=== PATIENT | male | born 1935 | race Caucasian/White ===

== ENCOUNTER 2017-04-16 07:49 | Inpatient (IN) | payer OTHER ==
[2017-04-16] MEDS ORDERED: BENADRYL INJ 50 MG VIAL IVP ONE ×2 (09:43→13:00)
[2017-04-16] MEDS ORDERED: TYLENOL 325 MG TAB PO ONE ×2 (10:00→13:00)
[2017-04-16 10:21] VITALS: BMI 34.8
[2017-04-16 10:23] LABS: BASOPHILS % (AUTO) 0.7 % (0.2-1.0); EOSINOPHILS # (AUTO) 0.1 x10^3/uL (0.0-0.2); EOSINOPHILS % (AUTO) 3.6 % (0.9-2.9); HEMATOCRIT 21.7 % (42.0-54.0); LYMPHOCYTES # (AUTO) 1.2 X10^3/uL (1.3-2.9); LYMPHOCYTES % (AUTO) 29.7 % (21.0-51.0); MEAN CORPUSCULAR HEMOGLOBIN 18.8 pg (27.0-34.0); MEAN CORPUSCULAR HGB CONC 30.2 g/dL (33.0-35.0); MEAN CORPUSCULAR VOLUME 62.1 fL (80.0-100.0); MEAN PLATELET VOLUME 8.6 fL (7.4-11.0); MONOCYTES # (AUTO) 0.6 x10^3/uL (0.3-0.8); MONOCYTES % (AUTO) 14.3 % (0.0-13.0); NEUTROPHILS # (AUTO) 2.1 x10^3/uL (2.2-4.8); NEUTROPHILS % (AUTO) 51.7 % (42.0-75.0); PLATELET COUNT 182 X10^3/uL (150.0-450.0); RED CELL DISTRIBUTION WIDTH 17.8 % (11.6-16.5); WHITE BLOOD COUNT 4.1 X10^3/uL (3.6-10.0)
[2017-04-16 10:28] LABS: HEMOGLOBIN 6.6 g/dL (13.5-18.0)
[2017-04-16 10:36] LABS: CALCIUM 8.4 mg/dL (8.5-10.1); CARBON DIOXIDE 27.6 mmol/L (21-32); COR CA(FOR HYPOALB) 9.2 mg/dL (8.5-10.1); CREATININE 1.7 mg/dL (0.70-1.30); TOTAL PROTEIN 7.3 g/dL (6.4-8.2)
[2017-04-16 10:47] LABS: PLATELET MORPHOLOGY COMMENT NORMAL (NORMAL)
[2017-04-16 10:48] LABS: HYPOCHROMASIA 3+; MICROCYTOSIS 2+
[2017-04-16] MEDS ORDERED: NS 500 ML IV 500 ML IV ONE (12:17)
[2017-04-16] MEDS: NS 500 ML IV 500 ML IV ONE (12:30)
[2017-04-16] MEDS: NS 1000 ML 1,000 ML IV SCH (20:52)
[2017-04-17 06:06] LABS: BASOPHILS % (AUTO) 0.6 % (0.2-1.0); EOSINOPHILS # (AUTO) 0.2 x10^3/uL (0.0-0.2); HEMATOCRIT 25.3 % (42.0-54.0); HEMOGLOBIN 7.8 g/dL (13.5-18.0); LYMPHOCYTES # (AUTO) 1.2 X10^3/uL (1.3-2.9); LYMPHOCYTES % (AUTO) 28.1 % (21.0-51.0); MEAN CORPUSCULAR HEMOGLOBIN 20.3 pg (27.0-34.0); MEAN CORPUSCULAR HGB CONC 30.8 g/dL (33.0-35.0); MEAN CORPUSCULAR VOLUME 65.8 fL (80.0-100.0); MEAN PLATELET VOLUME 8.5 fL (7.4-11.0); MONOCYTES # (AUTO) 0.5 x10^3/uL (0.3-0.8); MONOCYTES % (AUTO) 11.9 % (0.0-13.0); NEUTROPHILS # (AUTO) 2.4 x10^3/uL (2.2-4.8); NEUTROPHILS % (AUTO) 54.4 % (42.0-75.0); PLATELET COUNT 172 X10^3/uL (150.0-450.0); RED BLOOD COUNT 3.85 X10^6/uL (4.7-6.0); RED CELL DISTRIBUTION WIDTH 20.5 % (11.6-16.5); WHITE BLOOD COUNT 4.4 X10^3/uL (3.6-10.0)
[2017-04-17 06:30] LABS: ALANINE AMINOTRANSFERASE 51 Units/L (12-78); ALBUMIN 2.9 g/dL (3.4-5.0); ALKALINE PHOSPHATASE 67 Units/L (46-116); ASPARTATE AMINO TRANSFERASE 41 Units/L (15-37); BLOOD UREA NITROGEN 20 mg/dL (7-18); CALCIUM 8.4 mg/dL (8.5-10.1); CARBON DIOXIDE 25.7 mmol/L (21-32); CHLORIDE 107 mmol/L (98-107); COR CA(FOR HYPOALB) 9.3 mg/dL (8.5-10.1); COR NA(FOR HYPERGLY) 143 mmol/L (136-145); CREATININE 1.31 mg/dL (0.70-1.30); SODIUM 142 mmol/L (136-145); TOTAL PROTEIN 7.1 g/dL (6.4-8.2); eGFR BLACK RACES > 60 (>60); eGFR NON BLACK RACES 55 (>60)
[2017-04-17 06:33] LABS: ANISOCYTOSIS 1+; HYPOCHROMASIA 2+; MICROCYTOSIS 1+; PLATELET MORPHOLOGY COMMENT NORMAL (NORMAL)
[2017-04-17] MEDS: NEURONTIN CAP 300 MG PO SCH ×3 (10:05→14:04)
[2017-04-17] MEDS ORDERED: PATIENT'S HOME MEDICATION (Fluticasone-Salmeterol 500/50 1 PUFF) INH SCH (10:30)
[2017-04-17] MEDS: PEPCID 20 MG IV PREMIX* 20 MG/50 ML BAG IV SCH ×2 (10:30→20:11)
[2017-04-17] MEDS ORDERED: TIOTROPIUM BROMIDE MONOHYDRATE INH SCH (10:30)
[2017-04-17] MEDS: NS 1000 ML 1,000 ML IV SCH ×2 (10:30→16:15)
--- NOTE | 2017-04-17 10:43 | DR.UPDATE ---
H&P Update History and Physical Update: History and Physical reviewed and patient examined. Changes noted: Yes with the following: PRESENTED TO THE OFFICE AGAIN FOR OUTPATIENT LABS ON 04/15/2017. OUTPATIENT LABS REVEALED A DECREASED HGB OF 6.8. PATIENT WAS ADMITTED ON 2017 FOR BLOOD PRODUCT TRANSFUSIONS. PATIENT HAS BEEN SEEN AND EXAMINED. WE WILL TRANSFUSE 2 UNITS OF PACKED RED BLOOD CELLS TODAY. WE WILL RECHECK H/H AFTER BOTH UNITS HAVE BEEN TRANSFUSED AND MAKE FURTHER PLANS BASED ON LABS.
[2017-04-17] MEDS: SYNTHROID 88 mcg TAB PO SCH (11:18)
[2017-04-17] MEDS: CARAFATE PO SCH ×4 (11:18→20:12)
[2017-04-17] MEDS: LASIX PO SCH (11:18)
[2017-04-17] MEDS: LOPRESSOR TAB 50 MG PO SCH ×2 (11:18→20:11)
[2017-04-17] MEDS: LANOXIN PO SCH (11:52)
[2017-04-17] MEDS ORDERED: BENADRYL INJ 50 MG VIAL IV ONE (13:14)
[2017-04-17] MEDS ORDERED: TYLENOL 325 MG TAB PO ONE ×2 (13:14→14:00)
[2017-04-17] MEDS: DUONEB 0.5 MG/3 MG NEB SCH ×3 (13:35→20:57)
[2017-04-17] MEDS ORDERED: NS 500 ML IV 500 ML IV ONE ×2 (13:42→19:47)
[2017-04-17] MEDS: NS 500 ML IV 500 ML IV ONE (13:49)
[2017-04-17] MEDS ORDERED: BENADRYL INJ 50 MG VIAL IVP ONE (14:00)
[2017-04-17] MEDS: REQUIP PO SCH (20:11)
[2017-04-17] MEDS: PULMICORT NEB TX 0.5 MG NEB SCH (20:57)
[2017-04-17] MEDS ORDERED: KLONOPIN TAB 0.5 MG PO SCH (21:00)
[2017-04-18] MEDS: NS 1000 ML 1,000 ML IV SCH ×2 (02:43→05:04)
[2017-04-18] MEDS: PATIENT'S HOME MEDICATION PO SCH ×2 (05:09→09:29)
[2017-04-18] MEDS: NEURONTIN CAP 300 MG PO SCH (05:38)
[2017-04-18 06:10] LABS: BASOPHILS % (AUTO) 0.7 % (0.2-1.0); EOSINOPHILS # (AUTO) 0.2 x10^3/uL (0.0-0.2); EOSINOPHILS % (AUTO) 5.1 % (0.9-2.9); HEMOGLOBIN 9.1 g/dL (13.5-18.0); LYMPHOCYTES # (AUTO) 1.1 X10^3/uL (1.3-2.9); LYMPHOCYTES % (AUTO) 26.2 % (21.0-51.0); MEAN CORPUSCULAR HEMOGLOBIN 21.5 pg (27.0-34.0); MEAN CORPUSCULAR HGB CONC 31.3 g/dL (33.0-35.0); MEAN CORPUSCULAR VOLUME 68.6 fL (80.0-100.0); MONOCYTES # (AUTO) 0.5 x10^3/uL (0.3-0.8); MONOCYTES % (AUTO) 11.7 % (0.0-13.0); NEUTROPHILS # (AUTO) 2.5 x10^3/uL (2.2-4.8); NEUTROPHILS % (AUTO) 56.3 % (42.0-75.0); PLATELET COUNT 176 X10^3/uL (150.0-450.0); RED BLOOD COUNT 4.23 X10^6/uL (4.7-6.0); RED CELL DISTRIBUTION WIDTH 22.2 % (11.6-16.5); WHITE BLOOD COUNT 4.4 X10^3/uL (3.6-10.0)
[2017-04-18 06:23] LABS: ALANINE AMINOTRANSFERASE 50 Units/L (12-78); ALKALINE PHOSPHATASE 66 Units/L (46-116); ASPARTATE AMINO TRANSFERASE 44 Units/L (15-37); BLOOD UREA NITROGEN 16 mg/dL (7-18); CALCIUM 8.5 mg/dL (8.5-10.1); CARBON DIOXIDE 28.8 mmol/L (21-32); CHLORIDE 107 mmol/L (98-107); COR CA(FOR HYPOALB) 9.3 mg/dL (8.5-10.1); COR NA(FOR HYPERGLY) 145 mmol/L (136-145); CREATININE 1.37 mg/dL (0.70-1.30); SODIUM 144 mmol/L (136-145); TOTAL PROTEIN 7.2 g/dL (6.4-8.2); eGFR BLACK RACES > 60 (>60); eGFR NON BLACK RACES 53 (>60)
[2017-04-18 06:48] LABS: ANISOCYTOSIS 2+; HYPOCHROMASIA 2+; MICROCYTOSIS 1+; PLATELET MORPHOLOGY COMMENT NORMAL (NORMAL)
[2017-04-18 08:00] VITALS: BP 153/70
[2017-04-18] MEDS: DUONEB 0.5 MG/3 MG NEB SCH (08:48)
[2017-04-18] MEDS: PULMICORT NEB TX 0.5 MG NEB SCH (08:48)
[2017-04-18] MEDS ORDERED: K-DUR TAB 20 MEQ PO SCH (09:00)
[2017-04-18] MEDS ORDERED: CARDIZEM SR 120 MG PO SCH (09:00)
[2017-04-18] MEDS: LOPRESSOR TAB 50 MG PO SCH (09:21)
[2017-04-18] MEDS: SYNTHROID 88 mcg TAB PO SCH (09:21)
[2017-04-18] MEDS: CARAFATE PO SCH (09:21)
[2017-04-18] MEDS: REQUIP PO SCH (09:21)
[2017-04-18] MEDS: LANOXIN PO SCH (09:22)
[2017-04-18] MEDS: LASIX PO SCH (09:23)
[2017-04-18] MEDS: PEPCID 20 MG IV PREMIX* 20 MG/50 ML BAG IV SCH (09:23)
--- NOTE | 2017-04-18 10:38 | PCM.PROG ---
Progress Note - Progress Note for Day of Date: 04/17/17 - Subjective Subjective: WAS ADMITTED FOR ANEMIA. HE WAS TRANSFUSED WITH 2 LITERS PACKED RED BLOOD CELLS ON ADMISSION. TODAY, HE IS ALERT AND ORIENTED, LYING IN BED ON MORNING ROUNDS. HE IS NOTED WITH COMPLAINTS OF GENERALIZED WEAKNESS. HE DENIES KNOWLEDGE OF BLOOD IN STOOL. ON EXAMINATION, HEART IS REGULAR IN RATE AND RHYTHM. BILATERAL LUNGS ARE CLEAR THROUGHOUT. ABDOMEN IS ROUND, SOFT, AND NOTED WITH MILD, DIFFUSE TENDERNESS TO PALPATION. THERE IS NORMAL RANGE OF MOTION NOTED TO ALL EXTREMITIES. HIS VITALS THIS MORNING ARE 98.7-65-16-93%-164/ 69. LABS WERE OBTAINED. ABNORMAL LAB VALUES INCLUDE THE FOLLOWING: RBC 3.85, HGB 7.8, HCT 25.3, BUN 20, CREATININE 1.31, GLUCOSE 133, CALCIUM 8.4, AST 41, ALBUMIN 2.9. DUE TO HISTORY OF PEPTIC ULCER DISEASE, WE WILL START PATIENT ON PEPCID AND PROTONIX. WE WILL CONSULT GASTROENTEROLOGY FOR POSSIBLE EGD AND TRANSFUSE AN ADDITIONAL TWO UNITS OF PACKED RED BLOOD CELLS. WE WILL FOLLOW UP WITH AM LABS AND CONTINUE TO MONITOR PATIENT. - Past Medical Family Social History Past Med/Fam/Surg Hx: No changes since H&P Allergies: Allergies No Known Drug Allergies Allergy (Verified 04/16/17 08:18) - Review of Systems ROS: No change since H&P - Vital Signs and I&O's Vital Signs: Temperature 98.3 F Pulse Rate [Right Brachial] 60 Pulse Rate [Left Brachial] 65 Pulse Rate 70 Respiratory Rate 18 Blood Pressure [Left Arm] 160/67 Blood Pressure [Right Arm] 153/70 Blood Pressure 123/55 O2 Sat by Pulse Oximetry 93 Intake and Output: Intake & Output 04/15/17 04/16/17 04/17/17 04/18/17 11:59 11:59 11:59 11:59 Intake Total 1940 3158 Output Total 350 Balance 1940 2808 - Physical Exam Oriented: Normal Eyes: Normal Ear: Normal Nose: Normal Throat: Normal Respiratory: Normal Cardiovascular: Normal : Normal Auscultation: Bowel Sounds: Normal Palpation: Normal Tenderness: Normal Skin: Normal Musculoskeletal: Normal Psychiatric: Normal Mood Description: Calm Affect: Normal Speech Pattern: Clear, Appropriate - Laboratory and Diagnostics Result Diagrams: 04/18/17 05:15 04/18/17 05:15 Labs: Laboratory WBC 4.4 X10^3/uL (3.6-10.0) 04/18/17 05:15 RBC 4.23 X10^6/uL (4.7-6.0) L 04/18/17 05:15 Hgb 9.1 g/dL (13.5-18.0) L 04/18/17 05:15 Hct 29.0 % (42.0-54.0) L 04/18/17 05:15 MCV 68.6 fL (80.0-100.0) L 04/18/17 05:15 MCH 21.5 pg (27.0-34.0) L 04/18/17 05:15 MCHC 31.3 g/dL (33.0-35.0) L 04/18/17 05:15 RDW 22.2 % (11.6-16.5) H 04/18/17 05:15 Plt Count 176 X10^3/uL (150.0-450.0) 04/18/17 05:15 Plt Count Comment Adequate (ADEQUATE) 04/18/17 05:15 MPV 9.0 fL (7.4-11.0) 04/18/17 05:15 Neut % 56.3 % (42.0-75.0) 04/18/17 05:15 Lymph % 26.2 % (21.0-51.0) 04/18/17 05:15 [place] % 11.7 % (0.0-13.0) 04/18/17 05:15 Eos % 5.1 % (0.9-2.9) H 04/18/17 05:15 Baso % 0.7 % (0.2-1.0) 04/18/17 05:15 Neut # 2.5 x10^3/uL (2.2-4.8) 04/18/17 05:15 Lymph # 1.1 X10^3/uL (1.3-2.9) L 04/18/17 05:15 [place] # 0.5 x10^3/uL (0.3-0.8) 04/18/17 05:15 Eos # 0.2 x10^3/uL (0.0-0.2) 04/18/17 05:15 Baso # 0.0 X10^3/uL (0.0-0.1) 04/18/17 05:15 Absolute Nucleated RBC 0.2 /100WBC 04/18/17 05:15 Plt Morphology Comment Normal (NORMAL) 04/18/17 05:15 RBC Morphology Abnormal (NORMAL) 04/18/17 05:15 Hypochromasia 2+ A 04/18/17 05:15 Anisocytosis 2+ A 04/18/17 05:15 Microcytosis 1+ A 04/18/17 05:15 Sodium 144 mmol/L (136-145) 04/18/17 05:15 Corrected Sodium 145 mmol/L (136-145) 04/18/17 05:15 Potassium 3.8 mmol/L (3.5-5.1) 04/18/17 05:15 Chloride 107 mmol/L (98-107) 04/18/17 05:15 Carbon Dioxide 28.8 mmol/L (21-32) 04/18/17 05:15 BUN 16 mg/dL (7-18) 04/18/17 05:15 Creatinine 1.37 mg/dL (0.70-1.30) H 04/18/17 05:15 Est GFR (MDRD) Af Amer > 60 (>60) 04/18/17 05:15 Est GFR (MDRD) Non-Af 53 (>60) L 04/18/17 05:15 Glucose 121 mg/dL (65-99) H 04/18/17 05:15 Calcium 8.5 mg/dL (8.5-10.1) 04/18/17 05:15 Corrected Calcium 9.3 mg/dL (8.5-10.1) 04/18/17 05:15 Total Bilirubin 0.60 mg/dL (0.2-1.0) 04/18/17 05:15 AST 44 Units/L (15-37) H 04/18/17 05:15 ALT 50 Units/L (12-78) 04/18/17 05:15 Alkaline Phosphatase 66 Units/L (46-116) 04/18/17 05:15 Total Protein 7.2 g/dL (6.4-8.2) 04/18/17 05:15 Albumin 3.0 g/dL (3.4-5.0) L 04/18/17 05:15 Globulin 4.2 g/dL (2.5-4.5) 04/18/17 05:15 Albumin/Globulin Ratio 0.7 Ratio (1.1-2.1) L 04/18/17 05:15 Digoxin 0.73 ng/mL (0.9-2) L 04/17/17 05:35 Blood Type A POSITIVE 04/16/17 10:10 Antibody Screen Negative 04/16/17 10:10 Crossmatch See Detail 04/16/17 10:10 - Plan (1) Anemia Status: Acute Qualifiers: Anemia type: iron deficiency Iron deficiency anemia type: chronic blood loss Qualified Code(s): D50.0 - Iron deficiency anemia secondary to blood loss (chronic) Plan: TRANSFUSE 2 UNITS PRBC, CONSULT GASTROENTEROLOGY, CONTINUE TO MONITOR
== END 2017-04-18 10:30 | disposition home or self-care (01) | DRG 812 ==
LOC: MED/SURG 07:49
PROVIDERS: ADMIT Internal Medicine; ATTEND Internal Medicine
PROC: 30233N1 Transfusion of Nonautologous Red Blood Cells into Peripheral Vein, Percutaneous Approach (ICD-10-PCS; principal; 2017-04-16)
PROC: 30233N1 Transfusion of Nonautologous Red Blood Cells into Peripheral Vein, Percutaneous Approach (ICD-10-PCS; 2017-04-16)
PROC: 30233N1 Transfusion of Nonautologous Red Blood Cells into Peripheral Vein, Percutaneous Approach (ICD-10-PCS; 2017-04-17)
PROC: 30233N1 Transfusion of Nonautologous Red Blood Cells into Peripheral Vein, Percutaneous Approach (ICD-10-PCS; 2017-04-17)
DX: D64.89 Other specified anemias (principal); I10 Essential (primary) hypertension; I25.10 Atherosclerotic heart disease of native coronary artery without angina pectoris; K21.9 Gastro-esophageal reflux disease without esophagitis; D50.0 Iron deficiency anemia secondary to blood loss (chronic); E03.8 Other specified hypothyroidism; E11.65 Type 2 diabetes mellitus with hyperglycemia
CPT/HCPCS: 36415; 36430; 80053; 80162; 85025; 86850; 86900; 86901; 86922; 94640; A4216; A4222; P9016; S0028; J1200; J7620; J7626

== ENCOUNTER 2017-05-01 07:33 | Day surgery (SDC) | payer OTHER ==
[2017-05-01] MEDS ORDERED: D5 LR 1000 ML 1,000 ML IV ONE (07:45)
[2017-05-01] MEDS ORDERED: DIPRIVAN VIAL 20 ML ONE (09:55)
[2017-05-01 10:50] VITALS: BP 129/63
== END 2017-05-01 10:30 | disposition home or self-care (01) ==
LOC: SURG1 07:33
PROVIDERS: ATTEND Internal Medicine Gastroenterology
PROC: 0DB68ZX Excision of Stomach, Via Natural or Artificial Opening Endoscopic, Diagnostic (ICD-10-PCS; principal; 2017-05-01 09:45)
PROC: 0DJ08ZZ Inspection of Upper Intestinal Tract, Via Natural or Artificial Opening Endoscopic (ICD-10-PCS; principal; 2017-05-01 09:45)
DX: K92.2 Gastrointestinal hemorrhage, unspecified (principal); D50.8 Other iron deficiency anemias; Z87.19 Personal history of other diseases of the digestive system; K20.8 Other esophagitis; K29.60 Other gastritis without bleeding; K31.7 Polyp of stomach and duodenum
CPT/HCPCS: 99100; A4217; J3490; J7120

== ENCOUNTER → 2017-05-27 | Outpatient (CLI) | payer OTHER ==
[2017-05-01 10:50] VITALS: BP 129/63
[2017-05-27 15:47] LABS: BASOPHILS % (AUTO) 0.7 % (0.2-1.0); EOSINOPHILS # (AUTO) 0.2 x10^3/uL (0.0-0.2); EOSINOPHILS % (AUTO) 3.9 % (0.9-2.9); HEMATOCRIT 31.9 % (42.0-54.0); HEMOGLOBIN 10.2 g/dL (13.5-18.0); LYMPHOCYTES # (AUTO) 1.3 X10^3/uL (1.3-2.9); LYMPHOCYTES % (AUTO) 29.2 % (21.0-51.0); MEAN CORPUSCULAR HEMOGLOBIN 23.6 pg (27.0-34.0); MEAN CORPUSCULAR VOLUME 73.8 fL (80.0-100.0); MEAN PLATELET VOLUME 8.6 fL (7.4-11.0); MONOCYTES # (AUTO) 0.6 x10^3/uL (0.3-0.8); MONOCYTES % (AUTO) 12.7 % (0.0-13.0); NEUTROPHILS # (AUTO) 2.5 x10^3/uL (2.2-4.8); NEUTROPHILS % (AUTO) 53.5 % (42.0-75.0); PLATELET COUNT 177 X10^3/uL (150.0-450.0); RED BLOOD COUNT 4.32 X10^6/uL (4.7-6.0); RED CELL DISTRIBUTION WIDTH 26.4 % (11.6-16.5); WHITE BLOOD COUNT 4.6 X10^3/uL (3.6-10.0)
[2017-05-27 16:01] LABS: PLATELET MORPHOLOGY COMMENT NORMAL (NORMAL)
[2017-05-27 16:02] LABS: ANISOCYTOSIS 1+; HYPOCHROMASIA 1+; MICROCYTOSIS 1+
== END ==
LOC: LAB 15:27
PROVIDERS: ATTEND Internal Medicine Gastroenterology
DX: D50.8 Other iron deficiency anemias (principal)
CPT/HCPCS: 36415; 85025

== ENCOUNTER 2020-08-28 16:32 | Inpatient (IN) ==
[2020-08-28 17:02] LABS: ABG ALLEN TEST POS; ABG BASE EXCESS 15.8 mmol/L (-2.0-2.0); ABG HCO3 43.1 mmol/L (22-26)
[2020-08-28] MEDS ORDERED: MORPHINE SULFATE INJ 2 MG INJ IVP ONE (17:02)
[2020-08-28] MEDS ORDERED: NITROGLYCERIN IV PREMIX 50 MG 50 MG/250 ML BAG IV PRN (17:02)
[2020-08-28] MEDS ORDERED: SALINE 0.9% 3 ML NEB TX ONE (17:06)
[2020-08-28] MEDS ORDERED: DUONEB 0.5 MG/3 MG (3 mL) NEB ONE ×3 (17:06→20:44)
[2020-08-28] MEDS ORDERED: MORPHINE SULFATE INJ 2 MG INJ ONE (17:08)
[2020-08-28] MEDS ORDERED: NITROGLYCERIN IV PREMIX 50 MG 50 MG/250 ML BAG ONE (17:08)
--- NOTE | 2020-08-28 17:09 | DR.URIAD ---
HPI Time Seen Time Seen by Provider: 08/28/20 17:02 PCP Primary Care Physician: Ryan Complaint Chief Complaint Doctors Comments: inc SOB. worsening swelling to LE. abd swelling noted. Chief Complaint:: Pt c/o increased shortness of breath. Family states pt is on O2 at 5lpm at home. COVID-19 Coronavirus risk:travel/contact w/high risk person: No Has patient experienced Coronavirus symptoms: Yes Coronavirus symptoms experienced: Shortness of Breath Reviewed Nurses Notes Reviewed: Yes Source History Provided: Patient and Family Member Mode of Arrival Mode of Arrival: Wheelchair Timing Onset of Chief Complaint: 08/28/20 Quality Shortness of Breath: Moderate PMH PMH Past Medical History: Yes Past Medical History: Anemia, CHF, Diabetes, Dyslipidemia, GERD, Hypertension, Hypothyroidism, PUD and Renal Disease Past Surgical History: Yes Surgical History: Appendectomy and Other Family History History of Family Medical Conditions: Yes Family Medical History: Coronary Artery Disease and Hypertension Social History Does patient currently use any type of tobacco product: No Have you used tobacco products in the last 12 months: No Type of Tobacco Use: None Does any household member use tobacco: No Alcohol Use: None Do you use any recreational Drugs:: No Lives With: Family Lives Where: Home Travel Risk Coronavirus risk:travel/contact w/high risk person: No Has patient experienced Coronavirus symptoms: Yes Coronavirus symptoms experienced: Shortness of Breath Infectious screening In the last 2 months have you had wt loss of >10#?: NO Have you had fever, night sweats or hemotysis?: No Have you traveled outside the country in the last 6 months?: No Isolation: Standard ROS Review of Systems Constitutional: See HPI Eyes: No Symptoms Reported ENTM: No Symptoms Reported Respiratoy: See HPI Cardiovascular: See HPI Gastrointestinal/Abdominal: No Symptoms Reported Genitourinary: No Symptoms Reported Neurological: No Symptoms Reported Musculoskeletal: No Symptoms Reported Integumentary: No Symptoms Reported Hematologic/Lymphatic: No Symptoms Reported Endocrine: No Symptoms Reported All Other Systems: Reviewed and Negative PE Vital Signs Vitals: Temperature 98.7 F Pulse Rate 66 Respiratory Rate 19 Blood Pressure [Left Arm] 160/67 Blood Pressure [Right Arm] 153/70 Blood Pressure 154/69 O2 Sat by Pulse Oximetry 96 Head Head Exam: Normal Inspection and Atraumatic Eyes Eye exam: PERRL ENT ENT Exam: Normal Exam Neck Neck Exam: Normal Inspection and Full ROM Respiratory Respiratory Exam: Respiratory Distress and Other Respiratory Exam: Bilateral: Wheezing, Bilateral: Rhonchi and Bilateral: Decreased Breath Sounds Cardiovascular Cardiovascular Exam: Normal Heart Sounds Abdominal Exam Abdominal Exam: Normal Inspection and Normal Bowel Sounds Extremeties Extremities Exam: Normal Inspection and Full ROM Back Back Exam: Normal Inspection and Full ROM Neurologic Neurological Exam: Alert and Oriented X3 Skin Skin Exam: Warm, Dry and Intact ROR Labs Reviewed Laboratory Results Reviewed?: Yes Result Diagrams: 08/28/20 17:00 08/28/20 17:00 Laboratory: WBC 4.6 X10^3/uL (3.6-10.0) 08/28/20 17:00 RBC 3.12 X10^6/uL (4.7-6.0) L 08/28/20 17:00 Hgb 6.9 g/dL (13.5-18.0) L* 08/28/20 17:00 Hct 22.6 % (42.0-54.0) L 08/28/20 17:00 MCV 72.5 fL (80.0-100.0) L 08/28/20 17:00 MCH 22.1 pg (27.0-34.0) L 08/28/20 17:00 MCHC 30.4 g/dL (33.0-35.0) L 08/28/20 17:00 RDW 16.9 % (11.6-16.5) H 08/28/20 17:00 Plt Count 204 X10^3/uL (150.0-450.0) 08/28/20 17:00 Plt Count Comment Adequate (ADEQUATE) 08/28/20 17:00 MPV 8.0 fL (7.4-11.0) 08/28/20 17:00 Neut % (Auto) 70.4 % (42.0-75.0) 08/28/20 17:00 Lymph % (Auto) 16.2 % (21.0-51.0) L 08/28/20 17:00 [place] % (Auto) 10.8 % (0.0-13.0) 08/28/20 17:00 Eos % (Auto) 2.2 % (0.9-2.9) 08/28/20 17:00 Baso % (Auto) 0.4 % (0.2-1.0) 08/28/20 17:00 Neut # (Auto) 3.2 x10^3/uL (2.2-4.8) 08/28/20 17:00 Lymph # (Auto) 0.7 X10^3/uL (1.3-2.9) L 08/28/20 17:00 [place] # (Auto) 0.5 x10^3/uL (0.3-0.8) 08/28/20 17:00 Eos # (Auto) 0.1 x10^3/uL (0.0-0.2) 08/28/20 17:00 Baso # (Auto) 0.0 X10^3/uL (0.0-0.1) 08/28/20 17:00 Absolute Nucleated RBC 0.1 /100WBC 08/28/20 17:00 Plt Morphology Comment Normal (NORMAL) 08/28/20 17:00 RBC Morphology Abnormal (NORMAL) 08/28/20 17:00 Hypochromasia 1+ A 08/28/20 17:00 Anisocytosis 1+ A 08/28/20 17:00 PT 14.9 SECONDS (11.8-14.3) 08/28/20 17:00 INR Target Range - 08/28/20 17:00 INR 1.22 (0.8-1.3) 08/28/20 17:00 APTT 35.9 SECONDS (22.9-36.5) 08/28/20 17:00 PTT Comment - 08/28/20 17:00 Sample Site Rr 08/28/20 16:55 ABG pH 7.430 (7.35-7.45) 08/28/20 16:55 ABG pCO2 65.0 mmHg (35.0-45.0) H* 08/28/20 16:55 ABG pO2 82.0 mmHg (80.0-100.0) 08/28/20 16:55 ABG HCO3 43.1 mmol/L (22-26) H* 08/28/20 16:55 ABG O2 Saturation 96.0 % (90-100) 08/28/20 16:55 ABG Base Excess 15.8 mmol/L (-2.0-2.0) H 08/28/20 16:55 Simón Test Pos 08/28/20 16:55 A-a Gradient 122.0 mmHg 08/28/20 16:55 FiO2 40.0 08/28/20 16:55 Blood Gas Comments Pt [facility]amis well. cdn 08/28/20 16:55 Sodium 147 mmol/L (136-145) H 08/28/20 17:00 Corrected Sodium TNP 08/28/20 17:00 Potassium 4.1 mmol/L (3.5-5.1) 08/28/20 17:00 Chloride 105 mmol/L (98-107) 08/28/20 17:00 Carbon Dioxide 40.3 mmol/L (21-32) H* 08/28/20 17:00 BUN 27 mg/dL (7-18) H 08/28/20 17:00 Creatinine 1.52 mg/dL (0.70-1.30) H 08/28/20 17:00 Est GFR (MDRD) Af Amer 56 (>60) L 08/28/20 17:00 Est GFR (MDRD) Non-Af 46 (>60) L 08/28/20 17:00 Glucose 73 mg/dL (65-99) 08/28/20 17:00 Calcium 8.1 mg/dL (8.5-10.1) L 08/28/20 17:00 Corrected Calcium 8.9 mg/dL (8.5-10.1) 08/28/20 17:00 Total Bilirubin 0.40 mg/dL (0.2-1.0) 08/28/20 17:00 AST 20 Units/L (15-37) 08/28/20 17:00 ALT 21 Units/L (12-78) 08/28/20 17:00 Alkaline Phosphatase 82 Units/L (46-116) 08/28/20 17:00 Creatine Kinase 133 Units/L (39-308) 08/28/20 17:00 CK-MB (CK-2) 1.1 ng/mL (0-4.0) 08/28/20 17:00 CK/CKMB % Calc 0.8 % (<4) 08/28/20 17:00 Troponin I < 0.02 ng/mL (0-1.5) 08/28/20 17:00 B-Natriuretic Peptide 228 pg/mL (0-79) H 08/28/20 17:00 Total Protein 7.5 g/dL (6.4-8.2) 08/28/20 17:00 Albumin 3.0 g/dL (3.4-5.0) L 08/28/20 17:00 Globulin 4.5 g/dL (2.5-4.5) 08/28/20 17:00 Albumin/Globulin Ratio 0.7 Ratio (1.1-2.1) L 08/28/20 17:00 hgb 6.9. elev BNP XRAY X-ray Results: cxr shows cardiogenic edema Opioid Opioid Risk Tool Age (Silverio box if 16-45): No History of Preadolescent Sexual Abuse: No Total: 0 Total Score Risk Category: Low Risk Copyright: Jeromy JERRY predicting aberrant behaviors Diagnosis Discharge Problem: Anemia
[2020-08-28] MEDS ORDERED: SALINE 0.9% 3 ML NEB TX NEB ONE (17:10)
[2020-08-28 17:25] LABS: BASOPHILS % (AUTO) 0.4 % (0.2-1.0); EOSINOPHILS # (AUTO) 0.1 x10^3/uL (0.0-0.2); EOSINOPHILS % (AUTO) 2.2 % (0.9-2.9); HEMATOCRIT 22.6 % (42.0-54.0); LYMPHOCYTES # (AUTO) 0.7 X10^3/uL (1.3-2.9); LYMPHOCYTES % (AUTO) 16.2 % (21.0-51.0); MEAN CORPUSCULAR HEMOGLOBIN 22.1 pg (27.0-34.0); MEAN CORPUSCULAR HGB CONC 30.4 g/dL (33.0-35.0); MEAN CORPUSCULAR VOLUME 72.5 fL (80.0-100.0); MONOCYTES # (AUTO) 0.5 x10^3/uL (0.3-0.8); MONOCYTES % (AUTO) 10.8 % (0.0-13.0); NEUTROPHILS # (AUTO) 3.2 x10^3/uL (2.2-4.8); NEUTROPHILS % (AUTO) 70.4 % (42.0-75.0); PLATELET COUNT 204 X10^3/uL (150.0-450.0); RED BLOOD COUNT 3.12 X10^6/uL (4.7-6.0); RED CELL DISTRIBUTION WIDTH 16.9 % (11.6-16.5); WHITE BLOOD COUNT 4.6 X10^3/uL (3.6-10.0)
[2020-08-28 17:32] LABS: ANISOCYTOSIS 1+; HEMOGLOBIN 6.9 g/dL (13.5-18.0); HYPOCHROMASIA 1+; PLATELET MORPHOLOGY COMMENT NORMAL (NORMAL)
[2020-08-28 17:38] LABS: ALANINE AMINOTRANSFERASE 21 Units/L (12-78); ALKALINE PHOSPHATASE 82 Units/L (46-116); ASPARTATE AMINO TRANSFERASE 20 Units/L (15-37); BLOOD UREA NITROGEN 27 mg/dL (7-18); CALCIUM 8.1 mg/dL (8.5-10.1); CHLORIDE 105 mmol/L (98-107); CKMB % 0.8 % (<4); COR CA(FOR HYPOALB) 8.9 mg/dL (8.5-10.1); CREATINE KINASE 133 Units/L (39-308); CREATINE KINASE MB 1.1 ng/mL (0-4.0); CREATININE 1.52 mg/dL (0.70-1.30); SODIUM 147 mmol/L (136-145); TOTAL PROTEIN 7.5 g/dL (6.4-8.2); TROPONIN I < 0.02 ng/mL (0-1.5); eGFR NON BLACK RACES 46 (>60)
[2020-08-28 17:42] LABS: CARBON DIOXIDE 40.3 mmol/L (21-32)
--- NOTE | 2020-08-28 17:49 | RAD ---
HISTORYPt c/o increased shortness of breath. Family states pt is on O2 at 5lpm at home.STUDYCHEST, 1 VIEWCOMPARISONCT abdomen/pelvis, April 25, 2020TECHNIQUEChest radiographic imaging, AP portable projection, 1 imageFINDINGSModerate cardiomegaly.Bilateral perihilar airspace opacities.Increased interstitial markings.No pleural effusion.No pneumothorax.No acute osseous abnormality.IMPRESSIONFindings are concerning for acute cardiogenic edema. Findings could be superimposed on chronic interstitial changes.Electronically signed by: Travis Casey (Aug 28, 2020 17:47:42)
[2020-08-28] MEDS ORDERED: MORPHINE SULFATE INJ 2 MG INJ IVP PRN (19:45)
[2020-08-28 20:36] LABS: CKMB % 0.9 % (<4); CREATINE KINASE 144 Units/L (39-308); CREATINE KINASE MB 1.3 ng/mL (0-4.0); TROPONIN I < 0.02 ng/mL (0-1.5)
[2020-08-28] MEDS ORDERED: SALINE 3% 15 ML NEB TX ONE (20:43)
[2020-08-28 20:48] VITALS: BMI 36.8
[2020-08-28] MEDS ORDERED: NS 500 ML IV 500 ML IV ONE ×2 (21:07→21:17)
[2020-08-28] MEDS: TYLENOL 325 MG TAB PO PRN (21:35)
[2020-08-28] MEDS: BENADRYL INJ 50 MG VIAL IVP PRN (21:35)
[2020-08-29] MEDS: DUONEB 0.5 MG/3 MG (3 mL) NEB SCH ×6 (00:15→20:45)
[2020-08-29] MEDS: LASIX IVP PRN ×2 (01:10→06:13)
[2020-08-29 06:35] LABS: BASOPHILS % (AUTO) 0.4 % (0.2-1.0); EOSINOPHILS # (AUTO) 0.2 x10^3/uL (0.0-0.2); EOSINOPHILS % (AUTO) 3.6 % (0.9-2.9); HEMATOCRIT 25.9 % (42.0-54.0); HEMOGLOBIN 8.1 g/dL (13.5-18.0); LYMPHOCYTES # (AUTO) 0.9 X10^3/uL (1.3-2.9); LYMPHOCYTES % (AUTO) 19.1 % (21.0-51.0); MEAN CORPUSCULAR HEMOGLOBIN 23.3 pg (27.0-34.0); MEAN CORPUSCULAR HGB CONC 31.3 g/dL (33.0-35.0); MEAN CORPUSCULAR VOLUME 74.6 fL (80.0-100.0); MEAN PLATELET VOLUME 7.5 fL (7.4-11.0); MONOCYTES # (AUTO) 0.6 x10^3/uL (0.3-0.8); MONOCYTES % (AUTO) 12.2 % (0.0-13.0); NEUTROPHILS # (AUTO) 3.1 x10^3/uL (2.2-4.8); NEUTROPHILS % (AUTO) 64.7 % (42.0-75.0); PLATELET COUNT 184 X10^3/uL (150.0-450.0); RED BLOOD COUNT 3.48 X10^6/uL (4.7-6.0); RED CELL DISTRIBUTION WIDTH 17.9 % (11.6-16.5); WHITE BLOOD COUNT 4.8 X10^3/uL (3.6-10.0)
[2020-08-29 06:38] LABS: BLOOD UREA NITROGEN 25 mg/dL (7-18); CALCIUM 8.1 mg/dL (8.5-10.1); CHLORIDE 105 mmol/L (98-107); SODIUM 145 mmol/L (136-145); eGFR NON BLACK RACES 47 (>60)
[2020-08-29 06:40] LABS: CARBON DIOXIDE 40.1 mmol/L (21-32)
[2020-08-29 06:57] LABS: PLATELET MORPHOLOGY COMMENT NORMAL (NORMAL)
[2020-08-29 06:58] LABS: HYPOCHROMASIA 1+
[2020-08-29 06:59] LABS: ANISOCYTOSIS SLIGHT
[2020-08-29] MEDS: PULMICORT NEB TX 0.5 MG NEB SCH ×2 (08:53→20:45)
[2020-08-29] MEDS ORDERED: LASIX IVP ONE (09:42)
[2020-08-29] MEDS ORDERED: NEURONTIN CAP 300 MG PO PRN (09:44)
[2020-08-29] MEDS ORDERED: HumuLIN R SUBCUT PRN (09:47)
[2020-08-29] MEDS ORDERED: PEPCID TAB 20 MG PO SCH (10:00)
--- NOTE | 2020-08-29 10:37 | DR.H&P ---
H&P - History & Physical for Day of: H&P Date: 08/28/20 - Chief Complaint Chief Complaint: SOB, LOWER EXTREMITY SWELLING, ABDOMINAL SWELLING - History of Present Illness History of Present Illness: IS A 85 YEAR OLD PATIENT OF OURS WHO PRESENTED TO THE ER WITH COMPLAINTS OF INCREASED SHORTNESS OF BREATH, LOWER EXTREMITY SWELLING, AND ABDOMINAL SWELLING AND CRAMPING. SYMPTOMS STARTED UPON AWAKNENING ON 08/28/20. PATIENT DOES HAVE A PMH OF CHF, COPD, A-FIB, ANEMIA, DIABETES, DYSLIPIDEMIA, GERD, HTN, HYPOTHYROIDISM, PUD, CAD, AND RENAL DISEASE. HE CURRENTLY USES HOME OXYGEN AT 5 LITERS/MINUTE. AUSCULTATION OF LUNG MUELLER REVEALED SCATTERED WHEEZING AND RHONCHI, DIMINISHED. BLE WERE NOTED WITH 2+ PITTING EDEMA AND ABDOMEN WAS DISTENDED. ON ARRIVAL TO THE ER, VITALS WERE 98.7-65-30-79%NC-109/68. LABS WERE OBTAINED. ABNROMAL LAB VALUES INCLUDE THE FOLLOWING: RBC 3.12, HGB 6.9, HCT 22.6, SODIUM 147, CARBON DIOXIDE 40.3, BUN 27, CREATININE 1.52, CALCIUM 8.1, BNP 228, ALBUMIN 3.0. CARDIAC ENZYMES WERE WITHIN NORMAL LIMITS. ABG WAS OBTAINED AND REVEALED: PH 7.430, PC02 65, P02 82, HC03 43.1, 02 SAT 96, BASE EXCESS 15.8, A-A GRADIENT 122, FI02 40. SPUTUM CULTURE WAS SET UP. A CHEST XRAY WAS OBTAINED AND REVEALED: Findings are concerning for acute cardiogenic edema. Findings could be superimposed on chronic interstitial changes. EKG REVEALED: SINUS RHYTHM WITH HR 63. IN THE ER, HE WAS STARTED ON A NITRO DRIP DUE TO LEFT SIDED HEART FAILURE. HE WAS ALSO GIVEN MORPHINE 2MG IV X 1 DOSE, AND A DUONEB X 1. HE WAS ADMITTED TO THE HOSPITAL FOR FURTHER EVALUATION AND TREATMENT OF CHF, ACUTE ANEMIA, COPD, CHRONIC A-FIB, PUD. TWO UNITS OF PRBC WERE ORDERED AND TRANSFUSED. HE WAS GIVEN LASIX 20 MG IV AFTER EACH DOSE. HE WAS STARTED ON DUONEBS Q4H, PULMICORT NEBS BID, PEPCID 40MG PO BID, PROTONIX 40MG IV BID, HUMULIN R SLIDIDNG SCALE, OTBS ACHS, MORPHINE 2MG IV Q6H PRN PAIN, LASIX 40MG IV X 1 DOSE THIS MORNING. WE WILL REVIEW HIS HOME MEDICATIONS AND RESUME APPROPRIATE. WE WILL DISCONTINUE THE NITRO DRIP. OTHERWISE, WE WILL FOLLOW UP WITH AM LABS AND CONTINUE TO MONITOR. TIME SPENT ON CLINICAL ASSESSMENT, REVIEWING LABS AND IMAGING, DECISION MAKING, AND DOCUMENTATION GREATER THAN 75 MINUTES. - Past Medical History Past Medical History: Hypertension, Dyslipidemia, Diabetes, Renal Disease, Hypothyroidism, Anemia, PUD, GERD, CHF Additional Medical History: Cataracts, Atrial Fibrillation, Gastrointesinal Ulcer, Muscle Weakness, Restless Leg Syndrome - Past Surgical History Surgical History: Appendectomy Additional Surgical History: Left Orchiectomy, Ligation of right inguinal vessel to stop bleeding - Family History Family Medical History: Diabetes Mellitus, Coronary Artery Disease, Hypertension - Social History Does patient currently use any type of tobacco product: No Have you used tobacco products in the last 12 months: No Type of Tobacco Use: None Does any household member use tobacco: No Alcohol Use: None Drug Use: None - Medications Home Medications: No Known Drug Allergies Allergy (Verified 08/29/20 01:35) CONTINUE taking the following medications amiodarone [Pacerone] 200 mg PO DAILY 08/29/20 [History] apixaban [Eliquis] 2.5 mg PO DAILY 08/29/20 [History] atorvastatin 20 mg PO HS 08/29/20 [History] clonazepam 0.5 mg PO HS 08/29/20 [History] colchicine 0.3 mg PO DAILY 08/29/20 [History] dorzolamide [Trusopt] 1 drp OPHTHALMIC (EYE) BID 08/29/20 [History] famotidine 40 mg PO BID 08/29/20 [History] glipizide 5 mg PO DAILY 08/29/20 [History] latanoprost 1 drp OPHTHALMIC (EYE) HS 08/29/20 [History] levothyroxine [Euthyrox] 100 mcg PO DAILY 08/29/20 [History] loratadine [Claritin] 10 mg PO DAILY 08/29/20 [History] potassium chloride 10 meq PO DAILY 08/29/20 [History] ropinirole 1 mg PO BID 08/29/20 [History] tamsulosin 0.4 mg PO DAILY 08/29/20 [History] - Review of Systems Constitutional: Weakness Eyes: No Symptoms Reported ENT: No Symptoms Reported Respiratory: Cough, Shortness of Breath, SOB with Excertion, Sputum Cardiovascular: Edema Gastrointestinal: No Symptoms Reported Genitourinary: No Symptoms Reported Musculoskeletal: No Symptoms Reported Skin: No Symptoms Reported Neurological: Weakness - Physical Exam Vital Signs: Temperature 97.9 F Pulse Rate [Left Brachial] 66 Pulse Rate 66 Respiratory Rate 22 Blood Pressure [Left Arm] 127/83 Blood Pressure [Right Arm] 153/70 Blood Pressure 137/63 O2 Sat by Pulse Oximetry 83 Oriented: Normal Eyes: Normal Ear: Normal Nose: Normal Throat: Normal Respiratory: Diminished Throughout, Rhonchi Throughout, Wheezes Throughout Cardiovascular: Edema (BLE 2+ PITTING EDEMA) : Normal Auscultation: Bowel Sounds: Normal Palpation: Normal Tenderness: Normal Skin: Normal Musculoskeletal: Normal Psychiatric: Normal Mood Description: Calm Affect: Normal Speech Pattern: Clear - Assessment/Plan (1) Acute exacerbation of CHF (congestive heart failure) Status: Acute (2) Anemia Qualifiers: Anemia type: iron deficiency Iron deficiency anemia type: chronic blood loss Qualified Code(s): D50.0 - Iron deficiency anemia secondary to blood loss (chronic) Status: Acute Plan: ADMIT, DUONEBS Q4H, PULMICORT NEBS BID, PEPCID 40MG PO BID, PROTONIX 40MG IV BID, HUMULIN R SLIDIDNG SCALE, OTBS ACHS, MORPHINE 2MG IV Q6H PRN PAIN, LASIX 40MG IV X 1 DOSE THIS MORNING. TRANSFUSED 2 UNITS PRBC ON ADMISSION (3) GI bleed Qualifiers: GI bleed type/associated pathology: unspecified gastrointestinal hemorrhage type Qualified Code(s): K92.2 - Gastrointestinal hemorrhage, unspecified Status: Acute (4) COPD (chronic obstructive pulmonary disease) Qualifiers: COPD type: unspecified COPD Qualified Code(s): J44.9 - Chronic obstructive pulmonary disease, unspecified Status: Chronic (5) Diabetes mellitus, type 2 Qualifiers: Diabetes mellitus alf insulin use: with terminal manager use Diabetes mellitus complication status: with other specified complication Qualified Code(s): E11.69 - Type 2 diabetes mellitus with other specified complication; Z79.4 - care home (current) use of insulin Status: Chronic (6) History of atrial fibrillation Status: Chronic (7) Hyperlipidemia Qualifiers: Hyperlipidemia type: mixed hyperlipidemia Qualified Code(s): E78.2 - Mixed hyperlipidemia Status: Chronic (8) Hypertension Qualifiers: Hypertension type: primary hypertension Qualified Code(s): I10 - Essential (primary) hypertension Status: Chronic (9) Hypothyroidism Qualifiers: Hypothyroidism type: acquired Qualified Code(s): E03.9 - Hypothyroidism, unspecified Status: Chronic (10) Renal disease Status: Chronic - Allergies Allergies/Adverse Reactions: Allergies Allergy/AdvReac Type Severity Reaction Status Date / Time No Known Drug Allergies Allergy Verified 08/29/20 01:35
[2020-08-29] MEDS: MICRO K EXTEN CAP 10 MEQ PO SCH (11:00)
[2020-08-29] MEDS: FLOMAX PO SCH (11:00)
[2020-08-29] MEDS: PROTONIX INJ 40 MG VIAL IVP SCH ×2 (11:00→20:31)
[2020-08-29] MEDS: REQUIP PO SCH ×2 (11:00→20:31)
[2020-08-29] MEDS: SYNTHROID 100 mcg TAB PO SCH (11:00)
[2020-08-29] MEDS: PEPCID TAB 40 MG PO SCH (11:00)
[2020-08-29] MEDS: CORDARONE TAB 200 MG PO SCH (11:00)
[2020-08-29] MEDS: TRUSOPT PLUS (OPHTH) OP SCH ×2 (11:00→20:31)
[2020-08-29] MEDS: CLARITIN PO SCH (11:00)
[2020-08-29] MEDS: COLCRYS TAB 0.6 MG PO SCH (11:00)
[2020-08-29] MEDS: SNACK - Diabetic Appropriate PO SCH (20:30)
[2020-08-29] MEDS: LIPITOR TAB 20 MG PO SCH (20:31)
[2020-08-29] MEDS: KLONOPIN TAB 0.5 MG PO SCH (20:31)
[2020-08-29] MEDS: XALATAN OP SCH (20:31)
[2020-08-30] MEDS: DUONEB 0.5 MG/3 MG (3 mL) NEB SCH ×6 (00:33→20:42)
--- NOTE | 2020-08-30 05:50 | RAD ---
HISTORYSOBSTUDYCHEST, 1 [id number]/2021FINDINGSThe trachea is midline. The cardiac silhouette is moderately enlarged.. Bilateral perihilar and bibasilar airspace opacities. No pneumothorax.. The bony thorax is unremarkable.IMPRESSIONModerate cardiomegalyBilateral perihilar and bibasilar airspace opacities unchanged from previous 08/28/2020lectronically signed by: Isaac Peraza (Aug 30, 2020 05:48:27)
[2020-08-30 05:54] LABS: BASOPHILS % (AUTO) 0.5 % (0.2-1.0); EOSINOPHILS # (AUTO) 0.2 x10^3/uL (0.0-0.2); EOSINOPHILS % (AUTO) 3.2 % (0.9-2.9); HEMATOCRIT 26.9 % (42.0-54.0); HEMOGLOBIN 8.4 g/dL (13.5-18.0); LYMPHOCYTES # (AUTO) 0.6 X10^3/uL (1.3-2.9); LYMPHOCYTES % (AUTO) 12.6 % (21.0-51.0); MEAN CORPUSCULAR HEMOGLOBIN 23.2 pg (27.0-34.0); MEAN CORPUSCULAR HGB CONC 31.3 g/dL (33.0-35.0); MEAN CORPUSCULAR VOLUME 74.1 fL (80.0-100.0); MEAN PLATELET VOLUME 7.7 fL (7.4-11.0); MONOCYTES # (AUTO) 0.5 x10^3/uL (0.3-0.8); MONOCYTES % (AUTO) 10.8 % (0.0-13.0); NEUTROPHILS # (AUTO) 3.5 x10^3/uL (2.2-4.8); NEUTROPHILS % (AUTO) 72.9 % (42.0-75.0); PLATELET COUNT 191 X10^3/uL (150.0-450.0); RED BLOOD COUNT 3.62 X10^6/uL (4.7-6.0); RED CELL DISTRIBUTION WIDTH 18.2 % (11.6-16.5); WHITE BLOOD COUNT 4.8 X10^3/uL (3.6-10.0)
[2020-08-30 06:09] LABS: ALBUMIN 2.9 g/dL (3.4-5.0); CALCIUM 8.4 mg/dL (8.5-10.1); CARBON DIOXIDE 39.5 mmol/L (21-32); COR CA(FOR HYPOALB) 9.3 mg/dL (8.5-10.1); CREATININE 1.43 mg/dL (0.70-1.30); TOTAL PROTEIN 7.4 g/dL (6.4-8.2)
[2020-08-30 06:17] LABS: ANISOCYTOSIS SLIGHT; HYPOCHROMASIA SLIGHT; MICROCYTOSIS SLIGHT; PLATELET MORPHOLOGY COMMENT NORMAL (NORMAL); STOMATOCYTES PRESENT
[2020-08-30] MEDS: COLCRYS TAB 0.6 MG PO SCH (08:44)
[2020-08-30] MEDS: CLARITIN PO SCH (08:44)
[2020-08-30] MEDS: REQUIP PO SCH ×2 (08:44→20:47)
[2020-08-30] MEDS: CORDARONE TAB 200 MG PO SCH (08:44)
[2020-08-30] MEDS: MICRO K EXTEN CAP 10 MEQ PO SCH (08:44)
[2020-08-30] MEDS: FLOMAX PO SCH (08:44)
[2020-08-30] MEDS: PROTONIX INJ 40 MG VIAL IVP SCH ×2 (08:45→20:44)
[2020-08-30] MEDS: SYNTHROID 100 mcg TAB PO SCH (08:45)
[2020-08-30] MEDS: PEPCID TAB 40 MG PO SCH (08:45)
[2020-08-30] MEDS: TRUSOPT PLUS (OPHTH) OP SCH ×2 (08:46→20:46)
--- NOTE | 2020-08-30 08:52 | PCM.PROG ---
Progress Note - Progress Note for Day of Date of Exam: 08/29/20 - Subjective Subjective: WAS ADMITTED FOR TREATMENT OF CHF, ACUTE ANEMIA, COPD, CHRONIC A-FIB, AND PUD. TODAY, HE IS ALERT AND ORIENTED, LYING IN BED ON MORNING ROUNDS. HE CONTINUES TO REPORT SHORTNESS OF BREATH AND SWELLING THIS MORNING. HE DOES ADMIT TO SLIGHT IMPROVEMENT SINCE ADMISSION. HE IS CURRENTLY ON OXYGEN VIA NASAL CANNULA AT 4 LITERS/MINUTE. HE HAS RECEIVED TWO UNITS OF PRBC SINCE ADMISSION. ON EXAMINATION, ATRIAL FIBRILLATION NOTED. RATE NORMAL. BILATERAL LUNGS ARE NOTED WITH SCATTERED WHEEZING AND RHONCHI, DIMINISHED THROUGHOUT. ABDOMEN IS OBESE, SOFT, AND NON-TENDER WITH NORMAL BOWEL SOUNDS NOTED IN ALL QUADRANTS. 1+ PITTING EDEMA NOTED TO BLE. GOVEA CATHETER NOTED TO BEDSIDE DRAINAGE WITH STRAW COLORED URINE. HIS VITALS THIS MORNING ARE: 98.1-72-25-94%-145/65. LABS WERE OBTAINED. ABNORMAL LAB VALUES INCLUDE THE FOLLOWING: RBC 3.48, HGB 8.1, CARBON DIOXIDE 40.1, BUN 25, CREATININE 1.50, CALCIUM 8.1. SPUTUM CULTURE IS PENDING. HE IS CURRENTLY RECEIVING DUONEBS Q4H, PULMICORT NEBS BID, PEPCID 40MG PO BID, PROTONIX 40MG IV BID, HUMULIN R SLIDIDNG SCALE, OTBS ACHS, MORPHINE 2MG IV Q6H PRN PAIN. WE WILL ADMINISTER LASIX 40MG IV X 1 DOSE THIS MORNING AND RESUME HIS HOME MEDICATIONS. OTHERWISE, WE PLAN TO FOLLOW UP WITH AM LABS AND CHEST XRAY AND CONTINUE TO MONITOR. TIME SPENT ON CLINICAL ASSESSMENT, REVIEWING LABS AND IMAGING, DECISION MAKING, AND DOCUMENTATION GREATER THAN 45 MINUTES. - Past Medical Family Social History Past Med/Fam/Surg Hx: No changes since H&P Allergies: Allergies No Known Drug Allergies Allergy (Verified 08/29/20 01:35) - Review of Systems ROS: No change since H&P - Vital Signs and I&O's Vital Signs: Temperature 98.0 F Pulse Rate [Left Brachial] 66 Pulse Rate 69 Respiratory Rate 20 Blood Pressure [Left Arm] 127/83 Blood Pressure [Right Arm] 153/70 Blood Pressure 156/67 O2 Sat by Pulse Oximetry 92 Intake and Output: Intake & Output 08/27/20 08/28/20 08/29/20 08/30/20 11:59 11:59 11:59 11:59 Intake Total 1422 / 1422 1205 / 1205 Output Total 1250 / 1250 3200 / 3200 Balance 172 / 172 -1994 / - Physical Exam Oriented: Normal Eyes: Normal Ear: Normal Nose: Normal Throat: Normal Respiratory: Generalized, Diminished, Wheezes, Rhonchi Cardiovascular: Edema (BLE 1+ PITTING EDEMA) : Normal Auscultation: Bowel Sounds: Normal Palpation: Normal Tenderness: Normal Skin: Normal Musculoskeletal: Normal Psychiatric: Normal Mood Description: Calm Affect: Normal Speech Pattern: Clear, Appropriate - Laboratory and Diagnostics Result Diagrams: 08/30/20 05:08 08/30/20 05:08 Labs: 08/28/20 20:55 Sputum - Expectorated Sputum - Final Laboratory WBC 4.8 X10^3/uL (3.6-10.0) 08/30/20 05:08 RBC 3.62 X10^6/uL (4.7-6.0) L 08/30/20 05:08 Hgb 8.4 g/dL (13.5-18.0) L 08/30/20 05:08 Hct 26.9 % (42.0-54.0) L 08/30/20 05:08 MCV 74.1 fL (80.0-100.0) L 08/30/20 05:08 MCH 23.2 pg (27.0-34.0) L 08/30/20 05:08 MCHC 31.3 g/dL (33.0-35.0) L 08/30/20 05:08 RDW 18.2 % (11.6-16.5) H 08/30/20 05:08 Plt Count 191 X10^3/uL (150.0-450.0) 08/30/20 05:08 Plt Count Comment Adequate (ADEQUATE) 08/30/20 05:08 MPV 7.7 fL (7.4-11.0) 08/30/20 05:08 Neut % (Auto) 72.9 % (42.0-75.0) 08/30/20 05:08 Lymph % (Auto) 12.6 % (21.0-51.0) L 08/30/20 05:08 [place] % (Auto) 10.8 % (0.0-13.0) 08/30/20 05:08 Eos % (Auto) 3.2 % (0.9-2.9) H 08/30/20 05:08 Baso % (Auto) 0.5 % (0.2-1.0) 08/30/20 05:08 Neut # (Auto) 3.5 x10^3/uL (2.2-4.8) 08/30/20 05:08 Lymph # (Auto) 0.6 X10^3/uL (1.3-2.9) L 08/30/20 05:08 [place] # (Auto) 0.5 x10^3/uL (0.3-0.8) 08/30/20 05:08 Eos # (Auto) 0.2 x10^3/uL (0.0-0.2) 08/30/20 05:08 Baso # (Auto) 0.0 X10^3/uL (0.0-0.1) 08/30/20 05:08 Absolute Nucleated RBC 0.1 /100WBC 08/30/20 05:08 Plt Morphology Comment Normal (NORMAL) 08/30/20 05:08 RBC Morphology Abnormal (NORMAL) 08/30/20 05:08 Hypochromasia Slight A 08/30/20 05:08 Anisocytosis Slight A 08/30/20 05:08 Microcytosis Slight A 08/30/20 05:08 Stomatocytes Present 08/30/20 05:08 PT 14.9 SECONDS (11.8-14.3) 08/28/20 17:00 INR Target Range - 08/28/20 17:00 INR 1.22 (0.8-1.3) 08/28/20 17:00 APTT 35.9 SECONDS (22.9-36.5) 08/28/20 17:00 PTT Comment - 08/28/20 17:00 Sample Site Rr 08/28/20 16:55 ABG pH 7.430 (7.35-7.45) 08/28/20 16:55 ABG pCO2 65.0 mmHg (35.0-45.0) H* 08/28/20 16:55 ABG pO2 82.0 mmHg (80.0-100.0) 08/28/20 16:55 ABG HCO3 43.1 mmol/L (22-26) H* 08/28/20 16:55 ABG O2 Saturation 96.0 % (90-100) 08/28/20 16:55 ABG Base Excess 15.8 mmol/L (-2.0-2.0) H 08/28/20 16:55 Simón Test Pos 08/28/20 16:55 A-a Gradient 122.0 mmHg 08/28/20 16:55 FiO2 40.0 08/28/20 16:55 Blood Gas Comments Pt aramis well. cdn 08/28/20 16:55 Sodium 145 mmol/L (136-145) 08/30/20 05:08 Corrected Sodium 145 mmol/L (136-145) 08/30/20 05:08 Potassium 3.7 mmol/L (3.5-5.1) 08/30/20 05:08 Chloride 104 mmol/L (98-107) 08/30/20 05:08 Carbon Dioxide 39.5 mmol/L (21-32) H 08/30/20 05:08 BUN 21 mg/dL (7-18) H 08/30/20 05:08 Creatinine 1.43 mg/dL (0.70-1.30) H 08/30/20 05:08 Est GFR (MDRD) Af Amer 60 (>60) 08/30/20 05:08 Est GFR (MDRD) Non-Af 50 (>60) L 08/30/20 05:08 Glucose 115 mg/dL (65-99) H 08/30/20 05:08 POC Glucose (mg/dL) 121 mg/dL (65-99) H 08/30/20 05:19 Calcium 8.4 mg/dL (8.5-10.1) L 08/30/20 05:08 Corrected Calcium 9.3 mg/dL (8.5-10.1) 08/30/20 05:08 Total Bilirubin 0.60 mg/dL (0.2-1.0) 08/30/20 05:08 AST 26 Units/L (15-37) 08/30/20 05:08 ALT 22 Units/L (12-78) 08/30/20 05:08 Alkaline Phosphatase 83 Units/L (46-116) 08/30/20 05:08 Creatine Kinase 144 Units/L (39-308) 08/28/20 20:08 CK-MB (CK-2) 1.3 ng/mL (0-4.0) 08/28/20 20:08 CK/CKMB % Calc 0.9 % (<4) 08/28/20 20:08 Troponin I < 0.02 ng/mL (0-1.5) 08/28/20 20:08 B-Natriuretic Peptide 196 pg/mL (0-79) H 08/30/20 05:08 Total Protein 7.4 g/dL (6.4-8.2) 08/30/20 05:08 Albumin 2.9 g/dL (3.4-5.0) L 08/30/20 05:08 Globulin 4.5 g/dL (2.5-4.5) 08/30/20 05:08 Albumin/Globulin Ratio 0.6 Ratio (1.1-2.1) L 08/30/20 05:08 Blood Type A POSITIVE 08/28/20 20:33 Antibody Screen Negative 08/28/20 20:33 Crossmatch See Detail 08/28/20 20:33 - Plan (1) Acute exacerbation of CHF (congestive heart failure) Status: Acute Plan: DUONEBS Q4H, PULMICORT NEBS BID, PEPCID 40MG PO BID, PROTONIX 40MG IV BID, HUMULIN R SLIDIDNG SCALE, OTBS ACHS, MORPHINE 2MG IV Q6H PRN PAIN, LASIX 40MG IV X 1 DOSE THIS MORNING. TRANSFUSED 2 UNITS PRBC ON ADMISSION (2) Anemia Status: Acute Qualifiers: Anemia type: iron deficiency Iron deficiency anemia type: chronic blood loss Qualified Code(s): D50.0 - Iron deficiency anemia secondary to blood loss (chronic) (3) GI bleed Status: Acute Qualifiers: GI bleed type/associated pathology: unspecified gastrointestinal hemorrhage type Qualified Code(s): K92.2 - Gastrointestinal hemorrhage, unspecified (4) COPD (chronic obstructive pulmonary disease) Status: Chronic Qualifiers: COPD type: unspecified COPD Qualified Code(s): J44.9 - Chronic obstructive pulmonary disease, unspecified (5) Diabetes mellitus, type 2 Status: Chronic Qualifiers: Diabetes mellitus terminal system operator insulin use: with senior care use Diabetes mellitus complication status: with other specified complication Qualified Code(s): E11.69 - Type 2 diabetes mellitus with other specified complication; Z79.4 - termination clerk (current) use of insulin (6) History of atrial fibrillation Status: Chronic (7) Hyperlipidemia Status: Chronic Qualifiers: Hyperlipidemia type: mixed hyperlipidemia Qualified Code(s): E78.2 - Mixed hyperlipidemia (8) Hypertension Status: Chronic Qualifiers: Hypertension type: primary hypertension Qualified Code(s): I10 - Essential (primary) hypertension (9) Hypothyroidism Status: Chronic Qualifiers: Hypothyroidism type: acquired Qualified Code(s): E03.9 - Hypothyroidism, unspecified (10) Renal disease Status: Chronic
[2020-08-30] MEDS: PULMICORT NEB TX 0.5 MG NEB SCH ×2 (09:07→20:42)
[2020-08-30] MEDS ORDERED: LASIX IVP ONE (10:07)
[2020-08-30] MEDS ORDERED: NS 250 ML IV 250 ML IV PRN (10:25)
--- NOTE | 2020-08-30 10:28 | PCM.PROG ---
Progress Note - Progress Note for Day of Date of Exam: 08/30/20 - Subjective Subjective: WAS ADMITTED FOR TREATMENT OF CHF, ACUTE ANEMIA, COPD, CHRONIC A-FIB, AND PUD. TODAY, HE IS ALERT AND ORIENTED, LYING IN BED ON MORNING ROUNDS. HE CONTINUES TO REPORT SHORTNESS OF BREATH AND SWELLING THIS MORNING. HE DOES ADMIT TO SLIGHT IMPROVEMENT SINCE ADMISSION. HE IS CURRENTLY ON OXYGEN VIA NASAL CANNULA AT 4 LITERS/MINUTE. HE HAS RECEIVED TWO UNITS OF PRBC SINCE ADMISSION. ON EXAMINATION, ATRIAL FIBRILLATION NOTED. RATE NORMAL. BILATERAL LUNGS ARE NOTED WITH SCATTERED WHEEZING AND RHONCHI, DIMINISHED THROUGHOUT. ABDOMEN IS OBESE, SOFT, AND NON-TENDER WITH NORMAL BOWEL SOUNDS NOTED IN ALL QUADRANTS. 1+ PITTING EDEMA NOTED TO BLE. GOVEA CATHETER NOTED TO BEDSIDE DRAINAGE WITH STRAW COLORED URINE. HIS VITALS THIS MORNING ARE: 98.0-72-23-92%-144/60. WHEN OXYGEN IS REMOVED, PATIENTS SATURATIONS DO DROP TO THE LOWER 80s. HE RECOVERS WELL WHEN OXYGEN IS REAPPLIED. LABS WERE OBTAINED. ABNORMAL LAB VALUES INCLUDE THE FOLLOWING: RBC 3.62, HGB 8.4, HCT 26.9, CARBON DIOXIDE 39.5, BUN 21, CREATININE 1.43, GLUCOSE 115, CALCIUM 8.4, BNP 196, ALBUMIN 2.9. SPUTUM CULTURE IS PENDING. GRAM STAIN DOES REVEAL MANY GRAM POSITIVE COCCI. A CHEST XRAY WAS OBTAINED AND REVEALED: Moderate cardiomegaly. Bilateral perihilar and bibasilar airspace opacities unchanged from previous 08/28/2020. HE IS CURRENTLY RECEIVING DUONEBS Q4H, PULMICORT NEBS BID, PEPCID 40MG PO BID, PROTONIX 40MG IV BID, HUMULIN R SLIDIDNG SCALE, OTBS ACHS, MORPHINE 2MG IV Q6H PRN PAIN. HIS HOME MEDICATIONS WE ALSO RESUMED. TODAY, WE WILL ADD FORTAZ 1G IV Q8H, LEVAQUIN 500MG IV DAILY, GI COCKTAIL 15ML PO QID, LASIX 40MG IV X 1 DOSE, AND WILL ORDER FOR HIM TO WEAR THE BIPAP AT BEDTIME. OTHERWISE, WE PLAN TO FOLLOW UP WITH AM LABS AND CHEST XRAY AND CONTINUE TO MONITOR. TIME SPENT ON CLINICAL ASSESSMENT, REVIEWING LABS AND IMAGING, DECISION MAKING, AND DOCUMENTATION GREATER THAN 45 MINUTES. - Past Medical Family Social History Past Med/Fam/Surg Hx: No changes since H&P Allergies: Allergies No Known Drug Allergies Allergy (Verified 08/29/20 01:35) - Review of Systems ROS: No change since H&P - Vital Signs and I&O's Vital Signs: Temperature 98.0 F Pulse Rate [Left Brachial] 66 Pulse Rate 70 Respiratory Rate 23 Blood Pressure [Left Arm] 127/83 Blood Pressure [Right Arm] 153/70 Blood Pressure 157/70 O2 Sat by Pulse Oximetry 95 Intake and Output: Intake & Output 08/27/20 08/28/20 08/29/20 08/30/20 11:59 11:59 11:59 11:59 Intake Total 1422 / 1422 1205 / 1205 Output Total 1250 / 1250 3200 / 3200 Balance 172 / 172 -1994 / - Physical Exam Oriented: Normal Eyes: Normal Ear: Normal Nose: Normal Throat: Normal Respiratory: Generalized, Diminished, Wheezes, Rhonchi Cardiovascular: Edema (BLE 1+ PITTING EDEMA) : Normal Auscultation: Bowel Sounds: Normal Palpation: Normal Tenderness: Normal Skin: Normal Musculoskeletal: Normal Psychiatric: Normal Mood Description: Calm Affect: Normal Speech Pattern: Clear, Appropriate - Laboratory and Diagnostics Result Diagrams: 08/30/20 05:08 08/30/20 05:08 Labs: 08/28/20 20:55 Sputum - Expectorated Sputum Sputum Culture - Preliminary 08/28/20 20:55 Sputum - Expectorated Sputum - Final Laboratory WBC 4.8 X10^3/uL (3.6-10.0) 08/30/20 05:08 RBC 3.62 X10^6/uL (4.7-6.0) L 08/30/20 05:08 Hgb 8.4 g/dL (13.5-18.0) L 08/30/20 05:08 Hct 26.9 % (42.0-54.0) L 08/30/20 05:08 MCV 74.1 fL (80.0-100.0) L 08/30/20 05:08 MCH 23.2 pg (27.0-34.0) L 08/30/20 05:08 MCHC 31.3 g/dL (33.0-35.0) L 08/30/20 05:08 RDW 18.2 % (11.6-16.5) H 08/30/20 05:08 Plt Count 191 X10^3/uL (150.0-450.0) 08/30/20 05:08 Plt Count Comment Adequate (ADEQUATE) 08/30/20 05:08 MPV 7.7 fL (7.4-11.0) 08/30/20 05:08 Neut % (Auto) 72.9 % (42.0-75.0) 08/30/20 05:08 Lymph % (Auto) 12.6 % (21.0-51.0) L 08/30/20 05:08 [place] % (Auto) 10.8 % (0.0-13.0) 08/30/20 05:08 Eos % (Auto) 3.2 % (0.9-2.9) H 08/30/20 05:08 Baso % (Auto) 0.5 % (0.2-1.0) 08/30/20 05:08 Neut # (Auto) 3.5 x10^3/uL (2.2-4.8) 08/30/20 05:08 Lymph # (Auto) 0.6 X10^3/uL (1.3-2.9) L 08/30/20 05:08 [place] # (Auto) 0.5 x10^3/uL (0.3-0.8) 08/30/20 05:08 Eos # (Auto) 0.2 x10^3/uL (0.0-0.2) 08/30/20 05:08 Baso # (Auto) 0.0 X10^3/uL (0.0-0.1) 08/30/20 05:08 Absolute Nucleated RBC 0.1 /100WBC 08/30/20 05:08 Plt Morphology Comment Normal (NORMAL) 08/30/20 05:08 RBC Morphology Abnormal (NORMAL) 08/30/20 05:08 Hypochromasia Slight A 08/30/20 05:08 Anisocytosis Slight A 08/30/20 05:08 Microcytosis Slight A 08/30/20 05:08 Stomatocytes Present 08/30/20 05:08 PT 14.9 SECONDS (11.8-14.3) 08/28/20 17:00 INR Target Range - 08/28/20 17:00 INR 1.22 (0.8-1.3) 08/28/20 17:00 APTT 35.9 SECONDS (22.9-36.5) 08/28/20 17:00 PTT Comment - 08/28/20 17:00 Sample Site Rr 08/28/20 16:55 ABG pH 7.430 (7.35-7.45) 08/28/20 16:55 ABG pCO2 65.0 mmHg (35.0-45.0) H* 08/28/20 16:55 ABG pO2 82.0 mmHg (80.0-100.0) 08/28/20 16:55 ABG HCO3 43.1 mmol/L (22-26) H* 08/28/20 16:55 ABG O2 Saturation 96.0 % (90-100) 08/28/20 16:55 ABG Base Excess 15.8 mmol/L (-2.0-2.0) H 08/28/20 16:55 Simón Test Pos 08/28/20 16:55 A-a Gradient 122.0 mmHg 08/28/20 16:55 FiO2 40.0 08/28/20 16:55 Blood Gas Comments Pt aramis well. cdn 08/28/20 16:55 Sodium 145 mmol/L (136-145) 08/30/20 05:08 Corrected Sodium 145 mmol/L (136-145) 08/30/20 05:08 Potassium 3.7 mmol/L (3.5-5.1) 08/30/20 05:08 Chloride 104 mmol/L (98-107) 08/30/20 05:08 Carbon Dioxide 39.5 mmol/L (21-32) H 08/30/20 05:08 BUN 21 mg/dL (7-18) H 08/30/20 05:08 Creatinine 1.43 mg/dL (0.70-1.30) H 08/30/20 05:08 Est GFR (MDRD) Af Amer 60 (>60) 08/30/20 05:08 Est GFR (MDRD) Non-Af 50 (>60) L 08/30/20 05:08 Glucose 115 mg/dL (65-99) H 08/30/20 05:08 POC Glucose (mg/dL) 121 mg/dL (65-99) H 08/30/20 05:19 Calcium 8.4 mg/dL (8.5-10.1) L 08/30/20 05:08 Corrected Calcium 9.3 mg/dL (8.5-10.1) 08/30/20 05:08 Total Bilirubin 0.60 mg/dL (0.2-1.0) 08/30/20 05:08 AST 26 Units/L (15-37) 08/30/20 05:08 ALT 22 Units/L (12-78) 08/30/20 05:08 Alkaline Phosphatase 83 Units/L (46-116) 08/30/20 05:08 Creatine Kinase 144 Units/L (39-308) 08/28/20 20:08 CK-MB (CK-2) 1.3 ng/mL (0-4.0) 08/28/20 20:08 CK/CKMB % Calc 0.9 % (<4) 08/28/20 20:08 Troponin I < 0.02 ng/mL (0-1.5) 08/28/20 20:08 B-Natriuretic Peptide 196 pg/mL (0-79) H 08/30/20 05:08 Total Protein 7.4 g/dL (6.4-8.2) 08/30/20 05:08 Albumin 2.9 g/dL (3.4-5.0) L 08/30/20 05:08 Globulin 4.5 g/dL (2.5-4.5) 08/30/20 05:08 Albumin/Globulin Ratio 0.6 Ratio (1.1-2.1) L 08/30/20 05:08 Blood Type A POSITIVE 08/28/20 20:33 Antibody Screen Negative 08/28/20 20:33 Crossmatch See Detail 08/28/20 20:33 - Plan (1) Acute exacerbation of CHF (congestive heart failure) Status: Acute Plan: DUONEBS Q4H, PULMICORT NEBS BID, FORTAZ 1G IV Q8H, LEVAQUIN 500MG IV DAILY, GI COCKTAIL 15ML PO QID, PEPCID 40MG PO BID, PROTONIX 40MG IV BID, HUMULIN R SLIDIDNG SCALE, OTBS ACHS, MORPHINE 2MG IV Q6H PRN PAIN, LASIX 40MG IV X 1 DOSE THIS MORNING. TRANSFUSED 2 UNITS PRBC ON ADMISSION (2) Pneumonia Status: Acute Qualifiers: Pneumonia type: due to unspecified organism Laterality: bilateral Lung location: unspecified part of lung Qualified Code(s): J18.9 - Pneumonia, unspecified organism (3) Anemia Status: Acute Qualifiers: Anemia type: iron deficiency Iron deficiency anemia type: chronic blood loss Qualified Code(s): D50.0 - Iron deficiency anemia secondary to blood loss (chronic) (4) GI bleed Status: Acute Qualifiers: GI bleed type/associated pathology: unspecified gastrointestinal hemorrhage type Qualified Code(s): K92.2 - Gastrointestinal hemorrhage, unspecified (5) COPD (chronic obstructive pulmonary disease) Status: Chronic Qualifiers: COPD type: unspecified COPD Qualified Code(s): J44.9 - Chronic obstructive pulmonary disease, unspecified (6) Diabetes mellitus, type 2 Status: Chronic Qualifiers: Diabetes mellitus longshore equipment operator insulin use: with fci use Diabetes mellitus complication status: with other specified complication Qualified Code(s): E11.69 - Type 2 diabetes mellitus with other specified complication; Z79.4 - residential (current) use of insulin (7) History of atrial fibrillation Status: Chronic (8) Hyperlipidemia Status: Chronic Qualifiers: Hyperlipidemia type: mixed hyperlipidemia Qualified Code(s): E78.2 - Mixed hyperlipidemia (9) Hypertension Status: Chronic Qualifiers: Hypertension type: primary hypertension Qualified Code(s): I10 - Essential (primary) hypertension (10) Hypothyroidism Status: Chronic Qualifiers: Hypothyroidism type: acquired Qualified Code(s): E03.9 - Hypothyroidism, unspecified (11) Renal disease Status: Chronic
[2020-08-30] MEDS: LEVSIN/MAALOX/LIDOC VISC PO SCH ×4 (10:37→20:42)
[2020-08-30] MEDS: FORTAZ or TAZICEF VIAL INJ 1 G in NS 100 ML IV + SPIKE MINIBAG* 100 ML IV SCH ×3 (10:51→21:09)
[2020-08-30] MEDS: LEVAQUIN PREMIX IV 500 MG 500 MG/100 ML BAG IV SCH (12:53)
[2020-08-30] MEDS: SNACK - Diabetic Appropriate PO SCH (20:41)
[2020-08-30] MEDS: KLONOPIN TAB 0.5 MG PO SCH (20:41)
[2020-08-30] MEDS: XALATAN OP SCH (20:43)
[2020-08-30] MEDS: LIPITOR TAB 20 MG PO SCH (20:45)
[2020-08-30] MEDS: COLACE CAP 100 MG PO SCH (22:54)
[2020-08-31] MEDS: DUONEB 0.5 MG/3 MG (3 mL) NEB SCH ×6 (00:37→20:40)
[2020-08-31] MEDS: FORTAZ or TAZICEF VIAL INJ 1 G in NS 100 ML IV + SPIKE MINIBAG* 100 ML IV SCH ×3 (05:27→21:00)
--- NOTE | 2020-08-31 06:03 | RAD ---
HISTORYSOBSTUDYCHEST, 1 VIEWCOMPARISONOne day prior.TECHNIQUEAP view of the chestFINDINGSThe cardiac silhouette is stably enlarged. Mediastinal contours appear stable. No significant change in bilateral airspace and interstitial opacities. Suspect small pleural effusions. No discernible pneumothorax. Soft tissue attenuation limits evaluation.IMPRESSIONNo significant change.Electronically signed by: Azeem Chin (Aug 31, 2020 06:02:17)
[2020-08-31] MEDS ORDERED: HALDOL INJ IM PRN ×2 (06:21→09:20)
[2020-08-31] MEDS ORDERED: HALDOL INJ ONE (06:21)
[2020-08-31 06:37] LABS: BASOPHILS % (AUTO) 0.4 % (0.2-1.0); EOSINOPHILS # (AUTO) 0.1 x10^3/uL (0.0-0.2); EOSINOPHILS % (AUTO) 2.8 % (0.9-2.9); HEMATOCRIT 25.8 % (42.0-54.0); LYMPHOCYTES # (AUTO) 0.6 X10^3/uL (1.3-2.9); LYMPHOCYTES % (AUTO) 13.4 % (21.0-51.0); MEAN CORPUSCULAR HEMOGLOBIN 23.3 pg (27.0-34.0); MEAN CORPUSCULAR HGB CONC 31.2 g/dL (33.0-35.0); MEAN CORPUSCULAR VOLUME 74.6 fL (80.0-100.0); MEAN PLATELET VOLUME 7.6 fL (7.4-11.0); MONOCYTES # (AUTO) 0.5 x10^3/uL (0.3-0.8); MONOCYTES % (AUTO) 11.3 % (0.0-13.0); NEUTROPHILS # (AUTO) 3.3 x10^3/uL (2.2-4.8); NEUTROPHILS % (AUTO) 72.1 % (42.0-75.0); PLATELET COUNT 186 X10^3/uL (150.0-450.0); RED BLOOD COUNT 3.46 X10^6/uL (4.7-6.0); RED CELL DISTRIBUTION WIDTH 17.8 % (11.6-16.5); WHITE BLOOD COUNT 4.5 X10^3/uL (3.6-10.0)
[2020-08-31 06:59] LABS: ALANINE AMINOTRANSFERASE 22 Units/L (12-78); ALBUMIN 2.8 g/dL (3.4-5.0); ALKALINE PHOSPHATASE 81 Units/L (46-116); ASPARTATE AMINO TRANSFERASE 25 Units/L (15-37); BLOOD UREA NITROGEN 19 mg/dL (7-18); CALCIUM 8.6 mg/dL (8.5-10.1); CHLORIDE 103 mmol/L (98-107); COR CA(FOR HYPOALB) 9.6 mg/dL (8.5-10.1); CREATININE 1.37 mg/dL (0.70-1.30); SODIUM 143 mmol/L (136-145); TOTAL PROTEIN 7.3 g/dL (6.4-8.2); eGFR NON BLACK RACES 52 (>60)
[2020-08-31 07:01] LABS: PLATELET MORPHOLOGY COMMENT NORMAL (NORMAL)
[2020-08-31 07:02] LABS: ANISOCYTOSIS SLIGHT; HYPOCHROMASIA SLIGHT
[2020-08-31 07:11] LABS: CARBON DIOXIDE 41.2 mmol/L (21-32)
[2020-08-31 08:21] LABS: ABG ALLEN TEST POS; ABG HCO3 47.4 mmol/L (22-26)
[2020-08-31] MEDS: PULMICORT NEB TX 0.5 MG NEB SCH ×2 (08:38→20:40)
[2020-08-31] MEDS: LEVSIN/MAALOX/LIDOC VISC PO SCH ×4 (10:07→21:40)
[2020-08-31] MEDS: PEPCID TAB 40 MG PO SCH (10:08)
[2020-08-31] MEDS: FLOMAX PO SCH (10:08)
[2020-08-31] MEDS: CORDARONE TAB 200 MG PO SCH (10:08)
[2020-08-31] MEDS: SYNTHROID 100 mcg TAB PO SCH (10:09)
[2020-08-31] MEDS: MICRO K EXTEN CAP 10 MEQ PO SCH (10:09)
[2020-08-31] MEDS: REQUIP PO SCH ×2 (10:09→21:00)
[2020-08-31] MEDS: CLARITIN PO SCH (10:09)
[2020-08-31] MEDS: COLCRYS TAB 0.6 MG PO SCH (10:10)
[2020-08-31] MEDS: MILK OF MAGNESIA PO SCH (10:10)
[2020-08-31] MEDS: LEVAQUIN PREMIX IV 500 MG 500 MG/100 ML BAG IV SCH (10:10)
[2020-08-31] MEDS: TRUSOPT PLUS (OPHTH) OP SCH ×2 (10:11→21:00)
[2020-08-31] MEDS: PROTONIX INJ 40 MG VIAL IVP SCH ×2 (10:11→21:00)
[2020-08-31] MEDS: MORPHINE SULFATE INJ 2 MG INJ IVP SCH ×3 (10:46→21:00)
[2020-08-31] MEDS: LASIX IVP SCH ×2 (10:46→20:58)
[2020-08-31 16:15] LABS: BILIRUBIN,URINE NEGATIVE (NEGATIVE); BLOOD/HEMOGLOBIN,URINE 5+ (NEGATIVE); GLUCOSE, URINE NEGATIVE (NEGATIVE); KETONES,URINE NEGATIVE (NEGATIVE); LEUKOCYTE ESTERASE ,URINE 1+ (NEGATIVE); NITRITES,URINE NEGATIVE (NEGATIVE); PROTEIN,URINE 3+ (NEGATIVE); UROBILINOGEN,URINE NORMAL (NORMAL)
[2020-08-31 16:23] LABS: APPEARANCE,URINE HAZY (CLEAR); BACTERIA,URINE TRACE /HPF (NEGATIVE); COLOR,URINE STRAW (YELLOW); RBC,URINE TNTC /HPF (0-3); SQUAMOUS EPITHELIAL CELL,UR RARE /HPF (NEGATIVE)
[2020-08-31] MEDS: SNACK - Diabetic Appropriate PO SCH (20:58)
[2020-08-31] MEDS: KLONOPIN TAB 0.5 MG PO SCH (21:00)
[2020-08-31] MEDS: XALATAN OP SCH (21:00)
[2020-08-31] MEDS: COLACE CAP 100 MG PO SCH (21:00)
[2020-08-31] MEDS: LIPITOR TAB 20 MG PO SCH (21:00)
[2020-09-01] MEDS: DUONEB 0.5 MG/3 MG (3 mL) NEB SCH ×6 (00:40→20:20)
[2020-09-01] MEDS: MORPHINE SULFATE INJ 2 MG INJ IVP SCH ×4 (04:00→21:15)
[2020-09-01] MEDS: FORTAZ or TAZICEF VIAL INJ 1 G in NS 100 ML IV + SPIKE MINIBAG* 100 ML IV SCH ×3 (05:13→21:15)
--- NOTE | 2020-09-01 05:19 | RAD ---
HISTORYSOBSTUDYCHEST, 1 [id number] trachea is midline. The cardiac silhouette is mildly enlarged.. Bilateral airspace and interstitial opacities, unchanged. No pneumothorax.. The bony thorax is unremarkable.IMPRESSIONStable portable chestElectronically signed by: Isaac Peraza (Sep 01, 2020 05:17:56)
[2020-09-01 05:42] LABS: BASOPHILS % (AUTO) 0.4 % (0.2-1.0); EOSINOPHILS # (AUTO) 0.2 x10^3/uL (0.0-0.2); EOSINOPHILS % (AUTO) 3.4 % (0.9-2.9); HEMATOCRIT 25.2 % (42.0-54.0); LYMPHOCYTES # (AUTO) 0.7 X10^3/uL (1.3-2.9); LYMPHOCYTES % (AUTO) 13.4 % (21.0-51.0); MEAN CORPUSCULAR HEMOGLOBIN 23.4 pg (27.0-34.0); MEAN CORPUSCULAR HGB CONC 31.7 g/dL (33.0-35.0); MEAN PLATELET VOLUME 7.3 fL (7.4-11.0); MONOCYTES # (AUTO) 0.5 x10^3/uL (0.3-0.8); MONOCYTES % (AUTO) 10.7 % (0.0-13.0); NEUTROPHILS # (AUTO) 3.5 x10^3/uL (2.2-4.8); NEUTROPHILS % (AUTO) 72.1 % (42.0-75.0); PLATELET COUNT 193 X10^3/uL (150.0-450.0); RED BLOOD COUNT 3.41 X10^6/uL (4.7-6.0); RED CELL DISTRIBUTION WIDTH 18.8 % (11.6-16.5); WHITE BLOOD COUNT 4.9 X10^3/uL (3.6-10.0)
[2020-09-01 05:52] LABS: ALANINE AMINOTRANSFERASE 19 Units/L (12-78); ALBUMIN 2.6 g/dL (3.4-5.0); ALKALINE PHOSPHATASE 78 Units/L (46-116); ASPARTATE AMINO TRANSFERASE 23 Units/L (15-37); BLOOD UREA NITROGEN 20 mg/dL (7-18); CALCIUM 8.4 mg/dL (8.5-10.1); CHLORIDE 100 mmol/L (98-107); COR CA(FOR HYPOALB) 9.5 mg/dL (8.5-10.1); CREATININE 1.44 mg/dL (0.70-1.30); SODIUM 145 mmol/L (136-145); TOTAL PROTEIN 7.2 g/dL (6.4-8.2); eGFR NON BLACK RACES 49 (>60)
[2020-09-01 06:07] LABS: CARBON DIOXIDE > 45.0 mmol/L (21-32)
[2020-09-01 06:24] LABS: ANISOCYTOSIS SLIGHT; MICROCYTOSIS SLIGHT; PLATELET MORPHOLOGY COMMENT NORMAL (NORMAL)
[2020-09-01] MEDS: PULMICORT NEB TX 0.5 MG NEB SCH ×2 (08:23→20:20)
[2020-09-01] MEDS: COLCRYS TAB 0.6 MG PO SCH (09:39)
[2020-09-01] MEDS: CORDARONE TAB 200 MG PO SCH (09:39)
[2020-09-01] MEDS: CLARITIN PO SCH (09:39)
[2020-09-01] MEDS: LEVAQUIN PREMIX IV 500 MG 500 MG/100 ML BAG IV SCH (09:40)
[2020-09-01] MEDS: FLOMAX PO SCH (09:40)
[2020-09-01] MEDS: LASIX IVP SCH ×2 (09:40→20:07)
[2020-09-01] MEDS: LEVSIN/MAALOX/LIDOC VISC PO SCH ×4 (09:40→20:07)
[2020-09-01] MEDS: PROTONIX INJ 40 MG VIAL IVP SCH ×2 (09:41→20:08)
[2020-09-01] MEDS: MILK OF MAGNESIA PO SCH (09:41)
[2020-09-01] MEDS: MICRO K EXTEN CAP 10 MEQ PO SCH (09:41)
[2020-09-01] MEDS: REQUIP PO SCH ×2 (09:41→20:08)
[2020-09-01] MEDS: PEPCID TAB 40 MG PO SCH (09:41)
[2020-09-01] MEDS: SYNTHROID 100 mcg TAB PO SCH (09:41)
[2020-09-01] MEDS: TRUSOPT PLUS (OPHTH) OP SCH ×2 (09:42→20:06)
[2020-09-01] MEDS: SNACK - Diabetic Appropriate PO SCH (20:04)
[2020-09-01] MEDS: KLONOPIN TAB 0.5 MG PO SCH (20:05)
[2020-09-01] MEDS: XALATAN OP SCH (20:05)
[2020-09-01] MEDS: COLACE CAP 100 MG PO SCH (20:06)
[2020-09-01] MEDS: LIPITOR TAB 20 MG PO SCH (20:07)
[2020-09-01] MEDS ORDERED: MILK OF MAGNESIA PO PRN (21:35)
--- NOTE | 2020-09-01 22:25 | PCM.PROG ---
Progress Note - Progress Note for Day of Date of Exam: 08/31/20 - Subjective Subjective: WAS ADMITTED FOR TREATMENT OF CHF, ACUTE ANEMIA, COPD, CHRONIC A-FIB, AND PUD. TODAY, HE IS ALERT AND ORIENTED, LYING IN BED ON MORNING ROUNDS. HE CONTINUES TO REPORT SHORTNESS OF BREATH AND SWELLING THIS MORNING. HE DOES ADMIT TO SLIGHT IMPROVEMENT SINCE ADMISSION. HE IS CURRENTLY ON OXYGEN VIA NASAL CANNULA AT 4 LITERS/MINUTE. HE HAS BEEN WEARING THE BIPAP AT NIGHT. HE HAS RECEIVED TWO UNITS OF PRBC SINCE ADMISSION. STAFF REPORTS THAT PATIENT BECAME AGITATED EARLY THIS MORNING AND PULLED IV LINE OUT AND REFUSED TO WEAR BIPAP. HE WAS GIVEN HALDOL AND AGITATION IMPROVED. ON EXAMINATION, ATRIAL FIBRILLATION NOTED. RATE NORMAL. BILATERAL LUNGS ARE NOTED WITH SCATTERED WHEEZING AND RHONCHI, DIMINISHED THROUGHOUT. ABDOMEN IS OBESE, SOFT, AND NON-TENDER WITH NORMAL BOWEL SOUNDS NOTED IN ALL QUADRANTS. 1+ PITTING EDEMA NOTED TO BLE. GOVEA CATHETER NOTED TO BEDSIDE DRAINAGE WITH STRAW COLORED URINE. HIS VITALS THIS MORNING ARE: 98.8-67-20-97%-157/69. WHEN OXYGEN IS REMOVED, PATIENTS SATURATIONS DO DROP TO THE LOWER 80s. HE RECOVERS WELL WHEN OXYGEN IS REAPPLIED. LABS WERE OBTAINED. ABNORMAL LAB VALUES INCLUDE THE FOLLOWING: RBC 3.46, HGB 8.0, HCT 25.8, CARBON DIOXIDE 41.2, BUN 19, CREATININE 1.37, GLUCOSE 104, BNP 137, ALBUMIN 2.8. SPUTUM CULTURE IS PENDING. GRAM STAIN DOES REVEAL MANY GRAM POSITIVE COCCI. A CHEST XRAY WAS OBTAINED AND REVEALED: No significant change. HE IS CURRENTLY RECEIVING FORTAZ 1G IV Q8H, LEVAQUIN 500MG IV DAILY, GI COCKTAIL 15ML PO QID, DUONEBS Q4H, LASIX 40MG IV Q12H, PULMICORT NEBS BID, PEPCID 40MG PO BID, PROTONIX 40MG IV BID, HUMULIN R SLIDIDNG SCALE, OTBS ACHS, MORPHINE 2MG IV Q6H PRN PAIN. HIS HOME MEDICATIONS WE ALSO RESUMED. WE WILL OBTAIN A URINALYSIS AND RESTRICT HIS FLUID INTAKE. OTHERWISE, WE PLAN TO FOLLOW UP WITH AM LABS AND CHEST XRAY AND CONTINUE TO MONITOR. TIME SPENT ON CLINICAL ASSESSMENT, REVIEWING LABS AND IMAGING, DECISION MAKING, AND DOCUMENTATION GREATER THAN 45 MINUTES. - Past Medical Family Social History Past Med/Fam/Surg Hx: No changes since H&P Allergies: Allergies No Known Drug Allergies Allergy (Verified 08/29/20 01:35) - Review of Systems ROS: No change since H&P - Vital Signs and I&O's Vital Signs: Temperature 98.2 F Pulse Rate [Left Brachial] 66 Pulse Rate 67 Respiratory Rate 16 Blood Pressure [Left Arm] 127/83 Blood Pressure [Right Arm] 153/70 Blood Pressure 143/64 O2 Sat by Pulse Oximetry 93 Intake and Output: Intake & Output 08/30/20 08/31/20 09/01/20 09/02/20 11:59 11:59 11:59 11:59 Intake Total 1205 / 1205 2670 / 2670 560 / 560 Output Total 3200 / 3200 2300 / 2300 2325 / 2325 1300 / 1300 Balance -1994 / -1994 370 / 370 -1765 / -1765 -1300 / -1300 - Physical Exam Oriented: Normal Eyes: Normal Ear: Normal Nose: Normal Throat: Normal Respiratory: Generalized, Diminished, Wheezes, Rhonchi Cardiovascular: Edema (BLE 1+ PITTING EDEMA) : Normal Auscultation: Bowel Sounds: Normal Palpation: Normal Tenderness: Normal Skin: Normal Musculoskeletal: Normal Psychiatric: Normal Mood Description: Calm Affect: Normal Speech Pattern: Clear, Appropriate - Laboratory and Diagnostics Result Diagrams: 09/01/20 05:20 09/01/20 05:20 Labs: 08/30/20 09:28 Blood Blood Culture - Preliminary 08/30/20 09:22 Blood Blood Culture - Preliminary 08/28/20 20:55 Sputum - Expectorated Sputum Sputum Culture - Final 08/28/20 20:55 Sputum - Expectorated Sputum - Final Laboratory WBC 4.9 X10^3/uL (3.6-10.0) 09/01/20 05:20 RBC 3.41 X10^6/uL (4.7-6.0) L 09/01/20 05:20 Hgb 8.0 g/dL (13.5-18.0) L 09/01/20 05:20 Hct 25.2 % (42.0-54.0) L 09/01/20 05:20 MCV 74.0 fL (80.0-100.0) L 09/01/20 05:20 MCH 23.4 pg (27.0-34.0) L 09/01/20 05:20 MCHC 31.7 g/dL (33.0-35.0) L 09/01/20 05:20 RDW 18.8 % (11.6-16.5) H 09/01/20 05:20 Plt Count 193 X10^3/uL (150.0-450.0) 09/01/20 05:20 Plt Count Comment Adequate (ADEQUATE) 09/01/20 05:20 MPV 7.3 fL (7.4-11.0) L 09/01/20 05:20 Neut % (Auto) 72.1 % (42.0-75.0) 09/01/20 05:20 Lymph % (Auto) 13.4 % (21.0-51.0) L 09/01/20 05:20 [place] % (Auto) 10.7 % (0.0-13.0) 09/01/20 05:20 Eos % (Auto) 3.4 % (0.9-2.9) H 09/01/20 05:20 Baso % (Auto) 0.4 % (0.2-1.0) 09/01/20 05:20 Neut # (Auto) 3.5 x10^3/uL (2.2-4.8) 09/01/20 05:20 Lymph # (Auto) 0.7 X10^3/uL (1.3-2.9) L 09/01/20 05:20 [place] # (Auto) 0.5 x10^3/uL (0.3-0.8) 09/01/20 05:20 Eos # (Auto) 0.2 x10^3/uL (0.0-0.2) 09/01/20 05:20 Baso # (Auto) 0.0 X10^3/uL (0.0-0.1) 09/01/20 05:20 Absolute Nucleated RBC 0.1 /100WBC 09/01/20 05:20 Plt Morphology Comment Normal (NORMAL) 09/01/20 05:20 RBC Morphology Abnormal (NORMAL) 09/01/20 05:20 Hypochromasia Slight A 08/31/20 05:04 Anisocytosis Slight A 09/01/20 05:20 Microcytosis Slight A 09/01/20 05:20 Stomatocytes Present 08/30/20 05:08 PT 14.9 SECONDS (11.8-14.3) 08/28/20 17:00 INR Target Range - 08/28/20 17:00 INR 1.22 (0.8-1.3) 08/28/20 17:00 APTT 35.9 SECONDS (22.9-36.5) 08/28/20 17:00 PTT Comment - 08/28/20 17:00 Sample Site Lr 08/31/20 08:14 ABG pH 7.370 (7.35-7.45) 08/31/20 08:14 ABG pCO2 82.0 mmHg (35.0-45.0) H* 08/31/20 08:14 ABG pO2 64.0 mmHg (80.0-100.0) L 08/31/20 08:14 ABG HCO3 47.4 mmol/L (22-26) H* 08/31/20 08:14 ABG O2 Saturation 91.0 % (90-100) 08/31/20 08:14 ABG Base Excess 18.0 mmol/L (-2.0-2.0) H 08/31/20 08:14 Simón Test Pos 08/31/20 08:14 A-a Gradient 190.0 mmHg 08/31/20 08:14 FiO2 50.0 08/31/20 08:14 Blood Gas Comments Pt aramis well cdn/silvia 08/31/20 08:14 Sodium 145 mmol/L (136-145) 09/01/20 05:20 Corrected Sodium TNP 09/01/20 05:20 Potassium 4.2 mmol/L (3.5-5.1) 09/01/20 05:20 Chloride 100 mmol/L (98-107) 09/01/20 05:20 Carbon Dioxide > 45.0 mmol/L (21-32) H* 09/01/20 05:20 BUN 20 mg/dL (7-18) H 09/01/20 05:20 Creatinine 1.44 mg/dL (0.70-1.30) H 09/01/20 05:20 Est GFR (MDRD) Af Amer 60 (>60) 09/01/20 05:20 Est GFR (MDRD) Non-Af 49 (>60) L 09/01/20 05:20 Glucose 101 mg/dL (65-99) H 09/01/20 05:20 POC Glucose (mg/dL) 145 mg/dL (65-99) H 09/01/20 19:56 Calcium 8.4 mg/dL (8.5-10.1) L 09/01/20 05:20 Corrected Calcium 9.5 mg/dL (8.5-10.1) 09/01/20 05:20 Total Bilirubin 0.60 mg/dL (0.2-1.0) 09/01/20 05:20 AST 23 Units/L (15-37) 09/01/20 05:20 ALT 19 Units/L (12-78) 09/01/20 05:20 Alkaline Phosphatase 78 Units/L (46-116) 09/01/20 05:20 Creatine Kinase 144 Units/L (39-308) 08/28/20 20:08 CK-MB (CK-2) 1.3 ng/mL (0-4.0) 08/28/20 20:08 CK/CKMB % Calc 0.9 % (<4) 08/28/20 20:08 Troponin I < 0.02 ng/mL (0-1.5) 08/28/20 20:08 B-Natriuretic Peptide 158 pg/mL (0-79) H 09/01/20 05:20 Total Protein 7.2 g/dL (6.4-8.2) 09/01/20 05:20 Albumin 2.6 g/dL (3.4-5.0) L 09/01/20 05:20 Globulin 4.6 g/dL (2.5-4.5) H 09/01/20 05:20 Albumin/Globulin Ratio 0.6 Ratio (1.1-2.1) L 09/01/20 05:20 Specimen Type Catherized urine 08/31/20 16:00 Urine Color Straw (YELLOW) 08/31/20 16:00 Urine Appearance Hazy (CLEAR) 08/31/20 16:00 Urine pH 6.0 (5.0 - 8.0) 08/31/20 16:00 Ur Specific [place] 1.020 (1.000-1.030) 08/31/20 16:00 Urine Protein 3+ (NEGATIVE) 08/31/20 16:00 Urine Glucose (UA) Negative (NEGATIVE) 08/31/20 16:00 Urine Ketones Negative (NEGATIVE) 08/31/20 16:00 Urine Occult Blood 5+ (NEGATIVE) 08/31/20 16:00 Urine Nitrite Negative (NEGATIVE) 08/31/20 16:00 Urine Bilirubin Negative (NEGATIVE) 08/31/20 16:00 Urine Urobilinogen Normal (NORMAL) 08/31/20 16:00 Ur Leukocyte Esterase 1+ (NEGATIVE) 08/31/20 16:00 Urine RBC Tntc /HPF (0-3) A 08/31/20 16:00 Urine WBC 3-5 /HPF (0-5) 08/31/20 16:00 Ur Squamous Epith Cells Rare /HPF (NEGATIVE) 08/31/20 16:00 Urine Bacteria Trace /HPF (NEGATIVE) 08/31/20 16:00 Ur Culture Indicated? No/not indicated 08/31/20 16:00 Blood Type A POSITIVE 08/28/20 20:33 Antibody Screen Negative 08/28/20 20:33 Crossmatch See Detail 08/28/20 20:33 - Plan (1) Acute exacerbation of CHF (congestive heart failure) Status: Acute Plan: DUONEBS Q4H, PULMICORT NEBS BID, FORTAZ 1G IV Q8H, LEVAQUIN 500MG IV DAILY, GI COCKTAIL 15ML PO QID, PEPCID 40MG PO BID, PROTONIX 40MG IV BID, H UMULIN R SLIDIDNG SCALE, OTBS ACHS, MORPHINE 2MG IV Q6H PRN PAIN, LASIX 40MG IV Q12H (2) Pneumonia Status: Acute Qualifiers: Pneumonia type: due to unspecified organism Laterality: bilateral Lung location: unspecified part of lung Qualified Code(s): J18.9 - Pneumonia, unspecified organism (3) Anemia Status: Acute Qualifiers: Anemia type: iron deficiency Iron deficiency anemia type: chronic blood loss Qualified Code(s): D50.0 - Iron deficiency anemia secondary to blood loss (chronic) Plan: ADMIT, DUONEBS Q4H, PULMICORT NEBS BID, PEPCID 40MG PO BID, PROTONIX 40MG IV BID, HUMULIN R SLIDIDNG SCALE, OTBS ACHS, MORPHINE 2MG IV Q6H PRN PAIN, LASIX 40MG IV X 1 DOSE THIS MORNING. TRANSFUSED 2 UNITS PRBC ON ADMISSION (4) GI bleed Status: Acute Qualifiers: GI bleed type/associated pathology: unspecified gastrointestinal hemorrhage type Qualified Code(s): K92.2 - Gastrointestinal hemorrhage, unspecified (5) COPD (chronic obstructive pulmonary disease) Status: Chronic Qualifiers: COPD type: unspecified COPD Qualified Code(s): J44.9 - Chronic obstructive pulmonary disease, unspecified (6) Diabetes mellitus, type 2 Status: Chronic Qualifiers: Diabetes mellitus shelter insulin use: with bed bug exterminator use Diabetes mellitus complication status: with other specified complication Qualified Code(s): E11.69 - Type 2 diabetes mellitus with other specified complication; Z79.4 - care home (current) use of insulin (7) History of atrial fibrillation Status: Chronic (8) Hyperlipidemia Status: Chronic Qualifiers: Hyperlipidemia type: mixed hyperlipidemia Qualified Code(s): E78.2 - Mixed hyperlipidemia (9) Hypertension Status: Chronic Qualifiers: Hypertension type: primary hypertension Qualified Code(s): I10 - Essential (primary) hypertension (10) Hypothyroidism Status: Chronic Qualifiers: Hypothyroidism type: acquired Qualified Code(s): E03.9 - Hypothyroidism, unspecified (11) Renal disease Status: Chronic
--- NOTE | 2020-09-01 22:41 | PCM.PROG ---
Progress Note - Progress Note for Day of Date of Exam: 09/01/20 - Subjective Subjective: WAS ADMITTED FOR TREATMENT OF CHF, ACUTE ANEMIA, COPD, CHRONIC A-FIB, AND PUD. TODAY, HE IS ALERT AND ORIENTED, LYING IN BED ON MORNING ROUNDS. HE CONTINUES TO REPORT SHORTNESS OF BREATH THIS MORNING. SPOUSE REPORTS HTAT HE HAS HAD MODERATE WEAKNESS. HE DOES ADMIT TO SLIGHT IMPROVEMENT SINCE ADMISSION. HE IS CURRENTLY ON OXYGEN VIA NASAL CANNULA AT 4 LITERS/MINUTE. HE HAS BEEN WEARING THE BIPAP AT NIGHT. HE HAS RECEIVED TWO UNITS OF PRBC SINCE ADMISSION. STAFF REPORTS THAT PHE CONTINUES WITH AGITATION AT TIMES. ON EXAMINATION, ATRIAL FIBRILLATION NOTED. RATE NORMAL. BILATERAL LUNGS ARE NOTED WITH SCATTERED WHEEZING AND RHONCHI, DIMINISHED THROUGHOUT. ABDOMEN IS OBESE, SOFT, AND NON-TENDER WITH NORMAL BOWEL SOUNDS NOTED IN ALL QUADRANTS. 1+ PITTING EDEMA NOTED TO BLE. GOVEA CATHETER NOTED TO BEDSIDE DRAINAGE WITH STRAW COLORED URINE. HIS VITALS THIS MORNING ARE: 99.7-72-22-91%-143/64. LABS WERE OBTAINED. ABNORMAL LAB VALUES INCLUDE THE FOLLOWING: RBC 3.41, HGB 8.0, HCT 25.2, CARBON DIOXIDE >45, BUN 20, CREATININE 1.44, GLUCOSE 101, CALCIUM 8.4, BNP 158, ALBUMIN 2.6, GLOBULIN 4.6. SPUTUM CULTURE IS PENDING. GRAM STAIN DOES REVEAL MANY GRAM POSITIVE COCCI. A CHEST XRAY WAS OBTAINED AND REVEALED: The trachea is midline. The cardiac silhouette is mildly enlarged. Bilateral airspace and interstitial opacities, unchanged. No pneumothorax. The bony thorax is unremarkable. A URINALYSIS WAS OBTAINED AND REVEALED: WBC 3-5, RBC TNTC, LEUKOCYTES 1+, BACTERIA TRACE. HE IS CURRENTLY RECEIVING FORTAZ 1G IV Q8H, LEVAQUIN 500MG IV DAILY, GI COCKTAIL 15ML PO QID, DUONEBS Q4H, LASIX 40MG IV Q12H, PULMICORT NEBS BID, PEPCID 40MG PO BID, PROTONIX 40MG IV BID, HUMULIN R SLIDIDNG SCALE, OTBS ACHS, MORPHINE 2MG IV Q6H PRN PAIN. HIS HOME MEDICATIONS WE ALSO RESUMED. WE WILL CO NTINUE WITH CURRENT PLAN OF CARE TODAY. OTHERWISE, WE PLAN TO FOLLOW UP WITH AM LABS AND CHEST XRAY AND CONTINUE TO MONITOR. TIME SPENT ON CLINICAL ASSESSMENT, REVIEWING LABS AND IMAGING, DECISION MAKING, AND DOCUMENTATION GREATER THAN 45 MINUTES. - Past Medical Family Social History Past Med/Fam/Surg Hx: No changes since H&P Allergies: Allergies No Known Drug Allergies Allergy (Verified 08/29/20 01:35) - Review of Systems ROS: No change since H&P - Vital Signs and I&O's Vital Signs: Temperature 98.2 F Pulse Rate [Left Brachial] 66 Pulse Rate 67 Respiratory Rate 16 Blood Pressure [Left Arm] 127/83 Blood Pressure [Right Arm] 153/70 Blood Pressure 143/64 O2 Sat by Pulse Oximetry 93 Intake and Output: Intake & Output 08/30/20 08/31/20 09/01/20 09/02/20 11:59 11:59 11:59 11:59 Intake Total 1205 / 1205 2670 / 2670 560 / 560 Output Total 3200 / 3200 2300 / 2300 2325 / 2325 1300 / 1300 Balance -1994 / -1994 370 / 370 -1765 / -1765 -1300 / -1300 - Physical Exam Oriented: Normal Eyes: Normal Ear: Normal Nose: Normal Throat: Normal Respiratory: Generalized, Diminished, Wheezes, Rhonchi Cardiovascular: Edema (BLE 1+ PITTING EDEMA) : Normal Auscultation: Bowel Sounds: Normal Tenderness: Normal Skin: Normal Musculoskeletal: Normal Psychiatric: Normal Mood Description: Calm Affect: Normal Speech Pattern: Clear, Appropriate - Laboratory and Diagnostics Result Diagrams: 09/01/20 05:20 09/01/20 05:20 Labs: 08/30/20 09:28 Blood Blood Culture - Preliminary 08/30/20 09:22 Blood Blood Culture - Preliminary 08/28/20 20:55 Sputum - Expectorated Sputum Sputum Culture - Final 08/28/20 20:55 Sputum - Expectorated Sputum - Final Laboratory WBC 4.9 X10^3/uL (3.6-10.0) 09/01/20 05:20 RBC 3.41 X10^6/uL (4.7-6.0) L 09/01/20 05:20 Hgb 8.0 g/dL (13.5-18.0) L 09/01/20 05:20 Hct 25.2 % (42.0-54.0) L 09/01/20 05:20 MCV 74.0 fL (80.0-100.0) L 09/01/20 05:20 MCH 23.4 pg (27.0-34.0) L 09/01/20 05:20 MCHC 31.7 g/dL (33.0-35.0) L 09/01/20 05:20 RDW 18.8 % (11.6-16.5) H 09/01/20 05:20 Plt Count 193 X10^3/uL (150.0-450.0) 09/01/20 05:20 Plt Count Comment Adequate (ADEQUATE) 09/01/20 05:20 MPV 7.3 fL (7.4-11.0) L 09/01/20 05:20 Neut % (Auto) 72.1 % (42.0-75.0) 09/01/20 05:20 Lymph % (Auto) 13.4 % (21.0-51.0) L 09/01/20 05:20 [place] % (Auto) 10.7 % (0.0-13.0) 09/01/20 05:20 Eos % (Auto) 3.4 % (0.9-2.9) H 09/01/20 05:20 Baso % (Auto) 0.4 % (0.2-1.0) 09/01/20 05:20 Neut # (Auto) 3.5 x10^3/uL (2.2-4.8) 09/01/20 05:20 Lymph # (Auto) 0.7 X10^3/uL (1.3-2.9) L 09/01/20 05:20 [place] # (Auto) 0.5 x10^3/uL (0.3-0.8) 09/01/20 05:20 Eos # (Auto) 0.2 x10^3/uL (0.0-0.2) 09/01/20 05:20 Baso # (Auto) 0.0 X10^3/uL (0.0-0.1) 09/01/20 05:20 Absolute Nucleated RBC 0.1 /100WBC 09/01/20 05:20 Plt Morphology Comment Normal (NORMAL) 09/01/20 05:20 RBC Morphology Abnormal (NORMAL) 09/01/20 05:20 Hypochromasia Slight A 08/31/20 05:04 Anisocytosis Slight A 09/01/20 05:20 Microcytosis Slight A 09/01/20 05:20 Stomatocytes Present 08/30/20 05:08 PT 14.9 SECONDS (11.8-14.3) 08/28/20 17:00 INR Target Range - 08/28/20 17:00 INR 1.22 (0.8-1.3) 08/28/20 17:00 APTT 35.9 SECONDS (22.9-36.5) 08/28/20 17:00 PTT Comment - 08/28/20 17:00 Sample Site Lr 08/31/20 08:14 ABG pH 7.370 (7.35-7.45) 08/31/20 08:14 ABG pCO2 82.0 mmHg (35.0-45.0) H* 08/31/20 08:14 ABG pO2 64.0 mmHg (80.0-100.0) L 08/31/20 08:14 ABG HCO3 47.4 mmol/L (22-26) H* 08/31/20 08:14 ABG O2 Saturation 91.0 % (90-100) 08/31/20 08:14 ABG Base Excess 18.0 mmol/L (-2.0-2.0) H 08/31/20 08:14 Simón Test Pos 08/31/20 08:14 A-a Gradient 190.0 mmHg 08/31/20 08:14 FiO2 50.0 08/31/20 08:14 Blood Gas Comments Pt aramis well cdn/silvia 08/31/20 08:14 Sodium 145 mmol/L (136-145) 09/01/20 05:20 Corrected Sodium TNP 09/01/20 05:20 Potassium 4.2 mmol/L (3.5-5.1) 09/01/20 05:20 Chloride 100 mmol/L (98-107) 09/01/20 05:20 Carbon Dioxide > 45.0 mmol/L (21-32) H* 09/01/20 05:20 BUN 20 mg/dL (7-18) H 09/01/20 05:20 Creatinine 1.44 mg/dL (0.70-1.30) H 09/01/20 05:20 Est GFR (MDRD) Af Amer 60 (>60) 09/01/20 05:20 Est GFR (MDRD) Non-Af 49 (>60) L 09/01/20 05:20 Glucose 101 mg/dL (65-99) H 09/01/20 05:20 POC Glucose (mg/dL) 145 mg/dL (65-99) H 09/01/20 19:56 Calcium 8.4 mg/dL (8.5-10.1) L 09/01/20 05:20 Corrected Calcium 9.5 mg/dL (8.5-10.1) 09/01/20 05:20 Total Bilirubin 0.60 mg/dL (0.2-1.0) 09/01/20 05:20 AST 23 Units/L (15-37) 09/01/20 05:20 ALT 19 Units/L (12-78) 09/01/20 05:20 Alkaline Phosphatase 78 Units/L (46-116) 09/01/20 05:20 Creatine Kinase 144 Units/L (39-308) 08/28/20 20:08 CK-MB (CK-2) 1.3 ng/mL (0-4.0) 08/28/20 20:08 CK/CKMB % Calc 0.9 % (<4) 08/28/20 20:08 Troponin I < 0.02 ng/mL (0-1.5) 08/28/20 20:08 B-Natriuretic Peptide 158 pg/mL (0-79) H 09/01/20 05:20 Total Protein 7.2 g/dL (6.4-8.2) 09/01/20 05:20 Albumin 2.6 g/dL (3.4-5.0) L 09/01/20 05:20 Globulin 4.6 g/dL (2.5-4.5) H 09/01/20 05:20 Albumin/Globulin Ratio 0.6 Ratio (1.1-2.1) L 09/01/20 05:20 Specimen Type Catherized urine 08/31/20 16:00 Urine Color Straw (YELLOW) 08/31/20 16:00 Urine Appearance Hazy (CLEAR) 08/31/20 16:00 Urine pH 6.0 (5.0 - 8.0) 08/31/20 16:00 Ur Specific [place] 1.020 (1.000-1.030) 08/31/20 16:00 Urine Protein 3+ (NEGATIVE) 08/31/20 16:00 Urine Glucose (UA) Negative (NEGATIVE) 08/31/20 16:00 Urine Ketones Negative (NEGATIVE) 08/31/20 16:00 Urine Occult Blood 5+ (NEGATIVE) 08/31/20 16:00 Urine Nitrite Negative (NEGATIVE) 08/31/20 16:00 Urine Bilirubin Negative (NEGATIVE) 08/31/20 16:00 Urine Urobilinogen Normal (NORMAL) 08/31/20 16:00 Ur Leukocyte Esterase 1+ (NEGATIVE) 08/31/20 16:00 Urine RBC Tntc /HPF (0-3) A 08/31/20 16:00 Urine WBC 3-5 /HPF (0-5) 08/31/20 16:00 Ur Squamous Epith Cells Rare /HPF (NEGATIVE) 08/31/20 16:00 Urine Bacteria Trace /HPF (NEGATIVE) 08/31/20 16:00 Ur Culture Indicated? No/not indicated 08/31/20 16:00 Blood Type A POSITIVE 08/28/20 20:33 Antibody Screen Negative 08/28/20 20:33 Crossmatch See Detail 08/28/20 20:33 - Plan (1) Acute exacerbation of CHF (congestive heart failure) Status: Acute Plan: DUONEBS Q4H, PULMICORT NEBS BID, FORTAZ 1G IV Q8H, LEVAQUIN 500MG IV DAILY, GI COCKTAIL 15ML PO QID, PEPCID 40MG PO BID, PROTONIX 40MG IV BID, HUMULIN R SLIDIDNG SCALE, OTBS ACHS, MORPHINE 2MG IV Q6H PRN PAIN, LASIX 40MG IV Q12H (2) Pneumonia Status: Acute Qualifiers: Pneumonia type: due to unspecified organism Laterality: bilateral Lung location: unspecified part of lung Qualified Code(s): J18.9 - Pneumonia, unspecified organism (3) Anemia Status: Acute Qualifiers: Anemia type: iron deficiency Iron deficiency anemia type: chronic blood loss Qualified Code(s): D50.0 - Iron deficiency anemia secondary to blood loss (chronic) Plan: ADMIT, DUONEBS Q4H, PULMICORT NEBS BID, PEPCID 40MG PO BID, PROTONIX 40MG IV BID, HUMULIN R SLIDIDNG SCALE, OTBS ACHS, MORPHINE 2MG IV Q6H PRN PAIN, LASIX 40MG IV X 1 DOSE THIS MORNING. TRANSFUSED 2 UNITS PRBC ON ADMISSION (4) GI bleed Status: Acute Qualifiers: GI bleed type/associated pathology: unspecified gastrointestinal hemorrhage type Qualified Code(s): K92.2 - Gastrointestinal hemorrhage, unspecified (5) COPD (chronic obstructive pulmonary disease) Status: Chronic Qualifiers: COPD type: unspecified COPD Qualified Code(s): J44.9 - Chronic obstructive pulmonary disease, unspecified (6) Diabetes mellitus, type 2 Status: Chronic Qualifiers: Diabetes mellitus penitentiary insulin use: with machine long goods helper use Diabetes mellitus complication status: with other specified complication Qualified Code(s): E11.69 - Type 2 diabetes mellitus with other specified complication; Z79.4 - terminal manager (current) use of insulin (7) History of atrial fibrillation Status: Chronic (8) Hyperlipidemia Status: Chronic Qualifiers: Hyperlipidemia type: mixed hyperlipidemia Qualified Code(s): E78.2 - Mixed hyperlipidemia (9) Hypertension Status: Chronic Qualifiers: Hypertension type: primary hypertension Qualified Code(s): I10 - Essential (primary) hypertension (10) Hypothyroidism Status: Chronic Qualifiers: Hypothyroidism type: acquired Qualified Code(s): E03.9 - Hypothyroidism, unspecified (11) Renal disease Status: Chronic
[2020-09-02] MEDS: DUONEB 0.5 MG/3 MG (3 mL) NEB SCH ×6 (00:20→21:15)
[2020-09-02 04:41] LABS: BASOPHILS % (AUTO) 0.6 % (0.2-1.0); EOSINOPHILS # (AUTO) 0.2 x10^3/uL (0.0-0.2); EOSINOPHILS % (AUTO) 3.3 % (0.9-2.9); HEMATOCRIT 24.6 % (42.0-54.0); HEMOGLOBIN 7.7 g/dL (13.5-18.0); LYMPHOCYTES # (AUTO) 0.7 X10^3/uL (1.3-2.9); LYMPHOCYTES % (AUTO) 14.5 % (21.0-51.0); MEAN CORPUSCULAR HEMOGLOBIN 23.4 pg (27.0-34.0); MEAN CORPUSCULAR HGB CONC 31.4 g/dL (33.0-35.0); MEAN CORPUSCULAR VOLUME 74.6 fL (80.0-100.0); MEAN PLATELET VOLUME 7.6 fL (7.4-11.0); MONOCYTES # (AUTO) 0.5 x10^3/uL (0.3-0.8); MONOCYTES % (AUTO) 10.4 % (0.0-13.0); NEUTROPHILS # (AUTO) 3.2 x10^3/uL (2.2-4.8); NEUTROPHILS % (AUTO) 71.2 % (42.0-75.0); PLATELET COUNT 188 X10^3/uL (150.0-450.0); RED BLOOD COUNT 3.29 X10^6/uL (4.7-6.0); RED CELL DISTRIBUTION WIDTH 18.6 % (11.6-16.5); WHITE BLOOD COUNT 4.5 X10^3/uL (3.6-10.0)
[2020-09-02 04:52] LABS: ALANINE AMINOTRANSFERASE 19 Units/L (12-78); ALBUMIN 2.5 g/dL (3.4-5.0); ALKALINE PHOSPHATASE 77 Units/L (46-116); ASPARTATE AMINO TRANSFERASE 25 Units/L (15-37); BLOOD UREA NITROGEN 22 mg/dL (7-18); CALCIUM 8.3 mg/dL (8.5-10.1); CHLORIDE 99 mmol/L (98-107); COR CA(FOR HYPOALB) 9.5 mg/dL (8.5-10.1); COR NA(FOR HYPERGLY) 144 mmol/L (136-145); CREATININE 1.46 mg/dL (0.70-1.30); SODIUM 144 mmol/L (136-145); eGFR NON BLACK RACES 49 (>60)
[2020-09-02 05:07] LABS: CARBON DIOXIDE > 45.0 mmol/L (21-32)
[2020-09-02] MEDS: FORTAZ or TAZICEF VIAL INJ 1 G in NS 100 ML IV + SPIKE MINIBAG* 100 ML IV SCH ×3 (05:29→21:15)
[2020-09-02] MEDS: MORPHINE SULFATE INJ 2 MG INJ IVP SCH (05:29)
[2020-09-02 06:06] LABS: HYPOCHROMASIA 1+; PLATELET MORPHOLOGY COMMENT NORMAL (NORMAL)
[2020-09-02 06:07] LABS: ANISOCYTOSIS SLIGHT
[2020-09-02 06:09] LABS: MICROCYTOSIS SLIGHT
--- NOTE | 2020-09-02 06:16 | RAD ---
HISTORYSOBSTUDYCHEST, 1 VIEWCOMPARISONJuly 2020.FINDINGSThe trachea is midline. The cardiomediastinal silhouette remains enlarged. Central vascular congestion with hazy ground-glass changes and interstitial densities throughout the lung morrow remain with small volume effusions, suggesting interstitial edema/CHF. Patchy airspace opacities in the midlung zones and lower lobes are also again seen which can be seen with infection or edema/CHF. These findings are centrally unchanged from prior. No pneumothorax or other cardiopulmonary changes from prior identified. The bony thorax is grossly intact on this exam.IMPRESSIONStable chest without acute cardiopulmonary changes, as above.Electronically signed by: DARREL WARNER III (Sep 02, 2020 06:15:29)
[2020-09-02] MEDS: PULMICORT NEB TX 0.5 MG NEB SCH ×2 (09:23→21:15)
[2020-09-02] MEDS: LEVAQUIN PREMIX IV 500 MG 500 MG/100 ML BAG IV SCH (09:55)
[2020-09-02] MEDS: SYNTHROID 100 mcg TAB PO SCH (09:55)
[2020-09-02] MEDS: PEPCID TAB 40 MG PO SCH (09:56)
[2020-09-02] MEDS: MILK OF MAGNESIA PO SCH (09:57)
[2020-09-02] MEDS: PROTONIX INJ 40 MG VIAL IVP SCH ×2 (09:57→20:07)
[2020-09-02] MEDS: LEVSIN/MAALOX/LIDOC VISC PO SCH ×4 (09:58→20:10)
[2020-09-02] MEDS: CLARITIN PO SCH (09:59)
[2020-09-02] MEDS: MICRO K EXTEN CAP 10 MEQ PO SCH (09:59)
[2020-09-02] MEDS: FLOMAX PO SCH (10:00)
[2020-09-02] MEDS: REQUIP PO SCH ×2 (10:00→20:07)
[2020-09-02] MEDS: CORDARONE TAB 200 MG PO SCH (10:01)
[2020-09-02] MEDS: TRUSOPT PLUS (OPHTH) OP SCH ×2 (10:02→20:09)
[2020-09-02] MEDS: LASIX IVP SCH ×2 (10:09→20:08)
[2020-09-02] MEDS: COLCRYS TAB 0.6 MG PO SCH (10:09)
--- NOTE | 2020-09-02 10:51 | PCM.PROG ---
Progress Note - Progress Note for Day of Date of Exam: 09/02/20 - Subjective Subjective: WAS ADMITTED FOR TREATMENT OF CHF, ACUTE ANEMIA, COPD, CHRONIC A-FIB, AND PUD. TODAY, HE IS ALERT AND ORIENTED, LYING IN BED ON MORNING ROUNDS. HE CONTINUES TO REPORT SHORTNESS OF BREATH AND WEAKNESS THIS MORNING. SPOUSE REPORTS THAT HE HAS HAD MODERATE WEAKNESS. HE DOES ADMIT TO SLIGHT IMPROVEMENT SINCE ADMISSION. HE IS CURRENTLY ON OXYGEN VIA NASAL CANNULA AT 4 LITERS/MINUTE. HE HAS BEEN WEARING THE BIPAP AT NIGHT. HE HAS RECEIVED TWO UNITS OF PRBC SINCE ADMISSION. STAFF REPORTS THAT PHE CONTINUES WITH AGITATION AT TIMES. ON EXAMINATION, ATRIAL FIBRILLATION NOTED. RATE NORMAL. BILATERAL LUNGS ARE NOTED WITH SCATTERED WHEEZING AND RHONCHI, DIMINISHED THROUGHOUT. ABDOMEN IS OBESE, SOFT, AND NON-TENDER WITH NORMAL BOWEL SOUNDS NOTED IN ALL QUADRANTS. 1+ PITTING EDEMA NOTED TO BLE. GOVEA CATHETER NOTED TO BEDSIDE DRAINAGE WITH STRAW COLORED URINE. HIS VITALS THIS MORNING ARE: 98.5-66-20-96%-138/62. LABS WERE OBTAINED. ABNORMAL LAB VALUES INCLUDE THE FOLLOWING: RBC 3.29, HGB 7.7, HCT 24.6, CARBON DIOXIDE >45, BUN 22, CREATININE 1.46, GLUCOSE 111, CALCIUM 8.3, BNP 108, ALBUMIN 2.5. BLOOD AND SPUTUM CULTURES ARE PENDING. GRAM STAIN DOES REVEAL MANY GRAM POSITIVE COCCI. A CHEST XRAY WAS OBTAINED AND REVEALED: The trachea is midline. The cardiomediastinal silhouette remains enlarged. Central vascular congestion with hazy ground-glass changes and interstitial densities throughout the lung morrow remain with small volume effusions, suggesting interstitial edema/CHF. Patchy airspace opacities in the midlung zones and lower lobes are also again seen which can be seen with infection or edema/CHF. These findings are centrally unchanged from prior. No pneumothorax or other cardiopulmonary changes from prior identified. The bony thorax is grossly intact on this exam. HE IS CURRENTLY RECEIVING FORTAZ 1G IV Q8H, LEVAQUIN 500MG IV DAILY, GI COCKTAIL 15ML PO QID, DUONEBS Q4H, LASIX 40MG IV Q12H, PULMICORT NEBS BID, PEPCID 40MG PO BID, PROTONIX 40MG IV BID, HUMULIN R SLIDIDNG SCALE, OTBS ACHS, MORPHINE 2MG IV Q6H PRN PAIN. HIS HOME MEDICATIONS WE ALSO RESUMED. PER REQUEST OF THE SPOUSE, WE WILL DISCONTINUE THE MORPHINE TODAY. WE WILL ADMINISTER ONE ADDITIONAL UNIT OF PACKED RED BLOOD CELLS. OTHERWISE, WE WILL CONTINUE WITH CURRENT PLAN OF CARE TODAY. WE PLAN TO FOLLOW UP WITH AM LABS AND CHEST XRAY AND CONTINUE TO MONITOR. TIME SPENT ON CLINICAL ASSESSMENT, REVIEWING LABS AND IMAGING, DECISION MAKING, AND DOCUMENTATION GREATER THAN 45 MINUTES. - Past Medical Family Social History Past Med/Fam/Surg Hx: No changes since H&P Allergies: Allergies No Known Drug Allergies Allergy (Verified 08/29/20 01:35) - Review of Systems ROS: No change since H&P - Vital Signs and I&O's Vital Signs: Temperature 98.5 F Pulse Rate [Left Brachial] 66 Pulse Rate 66 Respiratory Rate 20 Blood Pressure [Left Arm] 127/83 Blood Pressure [Right Arm] 153/70 Blood Pressure 138/62 O2 Sat by Pulse Oximetry 96 Intake and Output: Intake & Output 08/30/20 08/31/20 09/01/20 09/02/20 11:59 11:59 11:59 11:59 Intake Total 1205 / 1205 2670 / 2670 560 / 560 860 / 860 Output Total 3200 / 3200 2300 / 2300 2325 / 2325 3000 / 3000 Balance -1994 / -1994 370 / 370 -1765 / -1765 -2140 / -0 - Physical Exam Oriented: Normal Eyes: Normal Ear: Normal Nose: Normal Throat: Normal Respiratory: Generalized, Diminished, Wheezes, Rhonchi Cardiovascular: Edema (BLE 1+ PITTING EDEMA) : Normal Auscultation: Bowel Sounds: Normal Palpation: Normal Tenderness: Normal Skin: Normal Musculoskeletal: Normal Psychiatric: Normal Mood Description: Calm Affect: Normal Speech Pattern: Clear, Appropriate - Laboratory and Diagnostics Result Diagrams: 09/02/20 03:31 09/02/20 03:31 Labs: 08/30/20 09:22 Blood Blood Culture - Preliminary 08/30/20 09:28 Blood Blood Culture - Preliminary 08/28/20 20:55 Sputum - Expectorated Sputum Sputum Culture - Final 08/28/20 20:55 Sputum - Expectorated Sputum - Final Laboratory WBC 4.5 X10^3/uL (3.6-10.0) 09/02/20 03:31 RBC 3.29 X10^6/uL (4.7-6.0) L 09/02/20 03:31 Hgb 7.7 g/dL (13.5-18.0) L 09/02/20 03:31 Hct 24.6 % (42.0-54.0) L 09/02/20 03:31 MCV 74.6 fL (80.0-100.0) L 09/02/20 03:31 MCH 23.4 pg (27.0-34.0) L 09/02/20 03:31 MCHC 31.4 g/dL (33.0-35.0) L 09/02/20 03:31 RDW 18.6 % (11.6-16.5) H 09/02/20 03:31 Plt Count 188 X10^3/uL (150.0-450.0) 09/02/20 03:31 Plt Count Comment Adequate (ADEQUATE) 09/02/20 03:31 MPV 7.6 fL (7.4-11.0) 09/02/20 03:31 Neut % (Auto) 71.2 % (42.0-75.0) 09/02/20 03:31 Lymph % (Auto) 14.5 % (21.0-51.0) L 09/02/20 03:31 [place] % (Auto) 10.4 % (0.0-13.0) 09/02/20 03:31 Eos % (Auto) 3.3 % (0.9-2.9) H 09/02/20 03:31 Baso % (Auto) 0.6 % (0.2-1.0) 09/02/20 03:31 Neut # (Auto) 3.2 x10^3/uL (2.2-4.8) 09/02/20 03:31 Lymph # (Auto) 0.7 X10^3/uL (1.3-2.9) L 09/02/20 03:31 [place] # (Auto) 0.5 x10^3/uL (0.3-0.8) 09/02/20 03:31 Eos # (Auto) 0.2 x10^3/uL (0.0-0.2) 09/02/20 03:31 Baso # (Auto) 0.0 X10^3/uL (0.0-0.1) 09/02/20 03:31 Absolute Nucleated RBC 0.1 /100WBC 09/02/20 03:31 Plt Morphology Comment Normal (NORMAL) 09/02/20 03:31 RBC Morphology Abnormal (NORMAL) 09/02/20 03:31 Hypochromasia 1+ A 09/02/20 03:31 Anisocytosis Slight A 09/02/20 03:31 Microcytosis Slight A 09/02/20 03:31 Stomatocytes Present 08/30/20 05:08 PT 14.9 SECONDS (11.8-14.3) 08/28/20 17:00 INR Target Range - 08/28/20 17:00 INR 1.22 (0.8-1.3) 08/28/20 17:00 APTT 35.9 SECONDS (22.9-36.5) 08/28/20 17:00 PTT Comment - 08/28/20 17:00 Sample Site Lr 08/31/20 08:14 ABG pH 7.370 (7.35-7.45) 08/31/20 08:14 ABG pCO2 82.0 mmHg (35.0-45.0) H* 08/31/20 08:14 ABG pO2 64.0 mmHg (80.0-100.0) L 08/31/20 08:14 ABG HCO3 47.4 mmol/L (22-26) H* 08/31/20 08:14 ABG O2 Saturation 91.0 % (90-100) 08/31/20 08:14 ABG Base Excess 18.0 mmol/L (-2.0-2.0) H 08/31/20 08:14 Simón Test Pos 08/31/20 08:14 A-a Gradient 190.0 mmHg 08/31/20 08:14 FiO2 50.0 08/31/20 08:14 Blood Gas Comments Pt aramis well cdn/silvia 08/31/20 08:14 Sodium 144 mmol/L (136-145) 09/02/20 03:31 Corrected Sodium 144 mmol/L (136-145) 09/02/20 03:31 Potassium 4.1 mmol/L (3.5-5.1) 09/02/20 03:31 Chloride 99 mmol/L (98-107) 09/02/20 03:31 Carbon Dioxide > 45.0 mmol/L (21-32) H* 09/02/20 03:31 BUN 22 mg/dL (7-18) H 09/02/20 03:31 Creatinine 1.46 mg/dL (0.70-1.30) H 09/02/20 03:31 Est GFR (MDRD) Af Amer 59 (>60) 09/02/20 03:31 Est GFR (MDRD) Non-Af 49 (>60) L 09/02/20 03:31 Glucose 111 mg/dL (65-99) H 09/02/20 03:31 POC Glucose (mg/dL) 114 mg/dL (65-99) H 09/02/20 05:31 Calcium 8.3 mg/dL (8.5-10.1) L 09/02/20 03:31 Corrected Calcium 9.5 mg/dL (8.5-10.1) 09/02/20 03:31 Total Bilirubin 0.50 mg/dL (0.2-1.0) 09/02/20 03:31 AST 25 Units/L (15-37) 09/02/20 03:31 ALT 19 Units/L (12-78) 09/02/20 03:31 Alkaline Phosphatase 77 Units/L (46-116) 09/02/20 03:31 Creatine Kinase 144 Units/L (39-308) 08/28/20 20:08 CK-MB (CK-2) 1.3 ng/mL (0-4.0) 08/28/20 20:08 CK/CKMB % Calc 0.9 % (<4) 08/28/20 20:08 Troponin I < 0.02 ng/mL (0-1.5) 08/28/20 20:08 B-Natriuretic Peptide 108 pg/mL (0-79) H 09/02/20 03:31 Total Protein 7.0 g/dL (6.4-8.2) 09/02/20 03:31 Albumin 2.5 g/dL (3.4-5.0) L 09/02/20 03:31 Globulin 4.5 g/dL (2.5-4.5) 09/02/20 03:31 Albumin/Globulin Ratio 0.6 Ratio (1.1-2.1) L 09/02/20 03:31 Specimen Type Catherized urine 08/31/20 16:00 Urine Color Straw (YELLOW) 08/31/20 16:00 Urine Appearance Hazy (CLEAR) 08/31/20 16:00 Urine pH 6.0 (5.0 - 8.0) 08/31/20 16:00 Ur Specific Randall 1.020 (1.000-1.030) 08/31/20 16:00 Urine Protein 3+ (NEGATIVE) 08/31/20 16:00 Urine Glucose (UA) Negative (NEGATIVE) 08/31/20 16:00 Urine Ketones Negative (NEGATIVE) 08/31/20 16:00 Urine Occult Blood 5+ (NEGATIVE) 08/31/20 16:00 Urine Nitrite Negative (NEGATIVE) 08/31/20 16:00 Urine Bilirubin Negative (NEGATIVE) 08/31/20 16:00 Urine Urobilinogen Normal (NORMAL) 08/31/20 16:00 Ur Leukocyte Esterase 1+ (NEGATIVE) 08/31/20 16:00 Urine RBC Tntc /HPF (0-3) A 08/31/20 16:00 Urine WBC 3-5 /HPF (0-5) 08/31/20 16:00 Ur Squamous Epith Cells Rare /HPF (NEGATIVE) 08/31/20 16:00 Urine Bacteria Trace /HPF (NEGATIVE) 08/31/20 16:00 Ur Culture Indicated? No/not indicated 08/31/20 16:00 Blood Type A POSITIVE 08/28/20 20:33 Antibody Screen Negative 08/28/20 20:33 Crossmatch See Detail 08/28/20 20:33 - Plan (1) Acute exacerbation of CHF (congestive heart failure) Status: Acute Plan: DUONEBS Q4H, PULMICORT NEBS BID, FORTAZ 1G IV Q8H, LEVAQUIN 500MG IV DAILY, GI COCKTAIL 15ML PO QID, PEPCID 40MG PO BID, PROTONIX 40MG IV BID, HUMULIN R SLIDIDNG SCALE, OTBS ACHS, LASIX 40MG IV Q12H (2) Pneumonia Status: Acute Qualifiers: Pneumonia type: due to unspecified organism Laterality: bilateral Lung location: unspecified part of lung Qualified Code(s): J18.9 - Pneumonia, unspecified organism (3) Anemia Status: Acute Qualifiers: Anemia type: iron deficiency Iron deficiency anemia type: chronic blood loss Qualified Code(s): D50.0 - Iron deficiency anemia secondary to blood loss (chronic) Plan: ADMIT, DUONEBS Q4H, PULMICORT NEBS BID, PEPCID 40MG PO BID, PROTONIX 40MG IV BID, HUMULIN R SLIDIDNG SCALE, OTBS ACHS, MORPHINE 2MG IV Q6H PRN PAIN, LASIX 40MG IV X 1 DOSE THIS MORNING. TRANSFUSED 2 UNITS PRBC ON ADMISSION (4) GI bleed Status: Acute Qualifiers: GI bleed type/associated pathology: unspecified gastrointestinal hemorrhage type Qualified Code(s): K92.2 - Gastrointestinal hemorrhage, unspecified (5) COPD (chronic obstructive pulmonary disease) Status: Chronic Qualifiers: COPD type: unspecified COPD Qualified Code(s): J44.9 - Chronic obstructive pulmonary disease, unspecified (6) Diabetes mellitus, type 2 Status: Chronic Qualifiers: Diabetes mellitus intermediate designer insulin use: with intermediate designer use Diabetes mellitus complication status: with other specified complication Qualified Code(s): E11.69 - Type 2 diabetes mellitus with other specified complication; Z79.4 - residential (current) use of insulin (7) History of atrial fibrillation Status: Chronic (8) Hyperlipidemia Status: Chronic Qualifiers: Hyperlipidemia type: mixed hyperlipidemia Qualified Code(s): E78.2 - Mixed hyperlipidemia (9) Hypertension Status: Chronic Qualifiers: Hypertension type: primary hypertension Qualified Code(s): I10 - Essential (primary) hypertension (10) Hypothyroidism Status: Chronic Qualifiers: Hypothyroidism type: acquired Qualified Code(s): E03.9 - Hypothyroidism, unspecified (11) Renal disease Status: Chronic
[2020-09-02] MEDS: TYLENOL 325 MG TAB PO PRN (14:25)
[2020-09-02] MEDS: BENADRYL INJ 50 MG VIAL IVP PRN (14:27)
[2020-09-02] MEDS: SNACK - Diabetic Appropriate PO SCH (20:05)
[2020-09-02] MEDS: LIPITOR TAB 20 MG PO SCH (20:07)
[2020-09-02] MEDS: COLACE CAP 100 MG PO SCH (20:07)
[2020-09-02] MEDS: KLONOPIN TAB 0.5 MG PO SCH (20:08)
[2020-09-02] MEDS: XALATAN OP SCH (20:08)
[2020-09-02 20:41] LABS: HEMATOCRIT 25.7 % (42.0-54.0)
[2020-09-03] MEDS: DUONEB 0.5 MG/3 MG (3 mL) NEB SCH ×4 (00:44→12:06)
[2020-09-03 04:38] LABS: ABG BASE EXCESS 27.8 mmol/L (-2.0-2.0)
[2020-09-03 04:39] LABS: ABG ALLEN TEST POS; ABG HCO3 56.9 mmol/L (22-26)
[2020-09-03] MEDS: FORTAZ or TAZICEF VIAL INJ 1 G in NS 100 ML IV + SPIKE MINIBAG* 100 ML IV SCH (05:09)
[2020-09-03 05:17] LABS: BASOPHILS % (AUTO) 0.5 % (0.2-1.0); EOSINOPHILS # (AUTO) 0.2 x10^3/uL (0.0-0.2); EOSINOPHILS % (AUTO) 3.6 % (0.9-2.9); HEMATOCRIT 24.5 % (42.0-54.0); HEMOGLOBIN 7.7 g/dL (13.5-18.0); LYMPHOCYTES # (AUTO) 0.6 X10^3/uL (1.3-2.9); MEAN CORPUSCULAR HEMOGLOBIN 23.2 pg (27.0-34.0); MEAN CORPUSCULAR HGB CONC 31.4 g/dL (33.0-35.0); MEAN CORPUSCULAR VOLUME 73.9 fL (80.0-100.0); MEAN PLATELET VOLUME 7.5 fL (7.4-11.0); MONOCYTES # (AUTO) 0.4 x10^3/uL (0.3-0.8); MONOCYTES % (AUTO) 10.4 % (0.0-13.0); NEUTROPHILS % (AUTO) 71.5 % (42.0-75.0); PLATELET COUNT 182 X10^3/uL (150.0-450.0); RED BLOOD COUNT 3.32 X10^6/uL (4.7-6.0); RED CELL DISTRIBUTION WIDTH 18.8 % (11.6-16.5); WHITE BLOOD COUNT 4.2 X10^3/uL (3.6-10.0)
[2020-09-03 05:31] LABS: ALANINE AMINOTRANSFERASE 18 Units/L (12-78); ALBUMIN 2.5 g/dL (3.4-5.0); ALKALINE PHOSPHATASE 78 Units/L (46-116); ASPARTATE AMINO TRANSFERASE 26 Units/L (15-37); BLOOD UREA NITROGEN 24 mg/dL (7-18); CALCIUM 8.4 mg/dL (8.5-10.1); CHLORIDE 99 mmol/L (98-107); COR CA(FOR HYPOALB) 9.6 mg/dL (8.5-10.1); CREATININE 1.55 mg/dL (0.70-1.30); SODIUM 142 mmol/L (136-145); eGFR NON BLACK RACES 45 (>60)
[2020-09-03 05:45] LABS: CARBON DIOXIDE 44.9 mmol/L (21-32)
[2020-09-03 06:27] LABS: ANISOCYTOSIS SLIGHT; HYPOCHROMASIA 1+; MICROCYTOSIS SLIGHT; PLATELET MORPHOLOGY COMMENT NORMAL (NORMAL)
--- NOTE | 2020-09-03 06:30 | RAD ---
HISTORYDyspneaSTUDYCHEST, 1 VIEWCOMPARISONJuly 2020.FINDINGSThe trachea is midline. The cardiac silhouette is enlarged but stable. There is unchanged right midlung zone right lower lobe airspace disease. There is improving airspace disease and ground-glass disease seen throughout the left lung with some residual pulmonary disease remaining in the left lung as well. These findings can be seen with infectious etiology/pneumonia or edema. Please correlate medically. No pneumothorax or other cardiopulmonary changes are identified. There is no midline shift appreciated. The bony thorax is unremarkable.IMPRESSIONAs above.Electronically signed by: DARREL WARNER III (Sep 03, 2020 06:27:46)
[2020-09-03] MEDS: PULMICORT NEB TX 0.5 MG NEB SCH (09:25)
[2020-09-03] MEDS: PEPCID TAB 40 MG PO SCH (10:07)
[2020-09-03] MEDS: MICRO K EXTEN CAP 10 MEQ PO SCH (10:07)
[2020-09-03] MEDS: CLARITIN PO SCH (10:08)
[2020-09-03] MEDS: REQUIP PO SCH (10:09)
[2020-09-03] MEDS: PROTONIX INJ 40 MG VIAL IVP SCH (10:10)
[2020-09-03] MEDS: MILK OF MAGNESIA PO SCH (10:10)
[2020-09-03] MEDS: LEVSIN/MAALOX/LIDOC VISC PO SCH (10:11)
[2020-09-03] MEDS: SYNTHROID 100 mcg TAB PO SCH (10:11)
[2020-09-03] MEDS: LEVAQUIN PREMIX IV 500 MG 500 MG/100 ML BAG IV SCH (10:16)
[2020-09-03] MEDS: FLOMAX PO SCH (10:17)
[2020-09-03] MEDS: COLCRYS TAB 0.6 MG PO SCH (10:18)
[2020-09-03] MEDS: CORDARONE TAB 200 MG PO SCH (10:19)
[2020-09-03] MEDS: TRUSOPT PLUS (OPHTH) OP SCH (10:19)
[2020-09-03] MEDS: LASIX IVP SCH (10:38)
[2020-09-03 12:07] VITALS: BP 147/86
== END 2020-09-03 13:30 | disposition home health service (06) | DRG 291 ==
LOC: ER 16:39 → ICU 19:35
PROVIDERS: ADMIT Internal Medicine; ATTEND Internal Medicine
DX: E11.65 Type 2 diabetes mellitus with hyperglycemia; J18.8 Other pneumonia, unspecified organism; E03.8 Other specified hypothyroidism; D50.0 Iron deficiency anemia secondary to blood loss (chronic); R26.89 Other abnormalities of gait and mobility; K21.9 Gastro-esophageal reflux disease without esophagitis; J44.9 Chronic obstructive pulmonary disease, unspecified; R06.02 Shortness of breath; R60.0 Localized edema; N18.9 Chronic kidney disease, unspecified; I48.20 Chronic atrial fibrillation, unspecified; K92.2 Gastrointestinal hemorrhage, unspecified; E78.2 Mixed hyperlipidemia; I50.9 Heart failure, unspecified; I12.9 Hypertensive chronic kidney disease with stage 1 through stage 4 chronic kidney disease, or unspecified chronic kidney disease; Z79.4 Long term (current) use of insulin

== ENCOUNTER 2020-09-12 21:57 | Inpatient (IN) ==
--- NOTE | 2020-09-12 22:19 | DR.SOBA ---
HPI Time Seen Time Seen by Provider: 09/12/20 22:16 Primary Care Physician Primary Care Physician: TASNEEM HPI Comment HPI Comment: PATIENT WITH A HISTORY OF CHF, COPD ANEMIA, HAD SYNCOPAL EPSIODE, FOUND LETHARGIC BY EMS,AFTER FALL IN BATHROOM. SPOUSE UNABLE TO AWAKE PATIENT. EMS APPLIED BIPAP AND PATIENT AWAKENS. PATIENT DENIES HEADACHE, CHEST PAIN. Complaints Chief Complaint Doctors Comments: DYSPNEA, SYNCOPE, FALL Chief Complaint:: PT IN ED VIA STRETCHER PER [facility] WITH C/O SYNCOPAL EPISODE IN THE SHOWER AND SOB. PER EMS PT WAS SATING 78% ON 3L/NC. PLACE ON CPAP AND GIVEN 40MG LASIX IV. PT HAS PITTING EDEMA TO BLE. COVID-19 Coronavirus risk:travel/contact w/high risk person: No Has patient experienced Coronavirus symptoms: Yes Coronavirus symptoms experienced: Shortness of Breath Source History Provided: Patient and EMS Mode of Arrival Mode of Arrival: Stretcher Timing Onset of Chief Complaint: 09/12/20 PMH PMH Past Medical History: Yes Past Medical History: Anemia, CHF, COPD, Diabetes, Dyslipidemia, GERD, Hypertension, Hypothyroidism, PUD and Renal Disease Past Medical History Comment: CARDIAC ARRHYTHMIAS CONGENITAL HEART DISEASE Past Surgical History: Yes Surgical History: Appendectomy Family History History of Family Medical Conditions: Yes Family Medical History: Diabetes Mellitus, Coronary Artery Disease and Hypertension Social History Does patient currently use any type of tobacco product: No Have you used tobacco products in the last 12 months: No Type of Tobacco Use: None Does any household member use tobacco: No Alcohol Use: None Do you use any recreational Drugs:: No Lives With: Family Lives Where: Home Travel Risk Coronavirus risk:travel/contact w/high risk person: No Has patient experienced Coronavirus symptoms: Yes Coronavirus symptoms experienced: Shortness of Breath Infectious screening In the last 2 months have you had wt loss of >10#?: NO Have you had fever, night sweats or hemotysis?: No Have you traveled outside the country in the last 6 months?: No Isolation: Standard ROS Review of Systems Constitutional: Fatigue (LETHARGY AFTER FALL) Respiratoy: Short of Breath PE Vital Signs Vitals: Temperature 98.3 F Pulse Rate 64 Respiratory Rate 26 Blood Pressure [Left Arm] 127/83 Blood Pressure [Right Arm] 153/70 Blood Pressure 115/59 O2 Sat by Pulse Oximetry 93 General General Appearance: Alert and In No Apparent Distress Head Head Exam: Normal Inspection and Atraumatic Eyes Eye exam: Normal Appearance, PERRL and EOMI ENT ENT Exam: Normal Exam Neck Neck Exam: Normal Inspection Chest Chest Inspection: Normal Inspection Respiratory Respiratory Exam: Bilateral: Decreased Breath Sounds (RIGHT BASE) and Bilateral: Dullness on Percussion (RIGHT BASE) Cardiovascular Cardiovascular Exam: Regular Rate and Irregular Rhythm Abdominal Exam Abdominal Exam: Normal Inspection and Normal Bowel Sounds Extremities Extremities Exam: Edema (3+ PITTING EDEMA) Back Back Exam: Normal Inspection and Full ROM Neurologic Neurological Exam: Alert and Oriented X3 Skin Skin Exam: Warm and Dry MDM Differential Diagnosis Differential Diagnosis: CHF, COPD and Pneumonia COURSE Treatment Treatment: SALINE LOCK, AFTER BLOOD CULTURES , ROCEPHIN 1GM IVPB, LASIX 40MG IV, PATIENT TYPED AND CROSSED FOR 1 UNIT OF PACKED RED BLOOD CELLS. Reevaluation 3rd: Unchanged ROR Labs Reviewed Laboratory Results Reviewed?: Yes Result Diagrams: 09/12/20 22:41 09/12/20 22:41 Laboratory: WBC 6.8 X10^3/uL (3.6-10.0) 09/12/20 22:41 RBC 3.35 X10^6/uL (4.7-6.0) L 09/12/20 22:41 Hgb 7.7 g/dL (13.5-18.0) L 09/12/20 22:41 Hct 25.3 % (42.0-54.0) L 09/12/20 22:41 MCV 75.6 fL (80.0-100.0) L 09/12/20 22:41 MCH 22.9 pg (27.0-34.0) L 09/12/20 22:41 MCHC 30.3 g/dL (33.0-35.0) L 09/12/20 22:41 RDW 19.3 % (11.6-16.5) H 09/12/20 22:41 Plt Count 335 X10^3/uL (150.0-450.0) 09/12/20 22:41 MPV 7.4 fL (7.4-11.0) 09/12/20 22:41 Neut % (Auto) 81.4 % (42.0-75.0) H 09/12/20 22:41 Lymph % (Auto) 6.4 % (21.0-51.0) L 09/12/20 22:41 [place] % (Auto) 10.3 % (0.0-13.0) 09/12/20 22:41 Eos % (Auto) 1.5 % (0.9-2.9) 09/12/20 22:41 Baso % (Auto) 0.4 % (0.2-1.0) 09/12/20 22:41 Neut # (Auto) 5.6 x10^3/uL (2.2-4.8) H 09/12/20 22:41 Lymph # (Auto) 0.4 X10^3/uL (1.3-2.9) L 09/12/20 22:41 [place] # (Auto) 0.7 x10^3/uL (0.3-0.8) 09/12/20 22:41 Eos # (Auto) 0.1 x10^3/uL (0.0-0.2) 09/12/20 22:41 Baso # (Auto) 0.0 X10^3/uL (0.0-0.1) 09/12/20 22:41 Absolute Nucleated RBC 0.2 /100WBC 09/12/20 22:41 Sample Site Rra 09/12/20 23:32 ABG pH 7.350 (7.35-7.45) 09/12/20 23:32 ABG pCO2 81.0 mmHg (35.0-45.0) H* 09/12/20 23:32 ABG pO2 65.0 mmHg (80.0-100.0) L 09/12/20 23:32 ABG HCO3 44.7 mmol/L (22-26) H* 09/12/20 23:32 ABG O2 Saturation 91.0 % (90-100) 09/12/20 23:32 ABG Base Excess 15.4 mmol/L (-2.0-2.0) H 09/12/20 23:32 Simón Test Pos 09/12/20 23:32 A-a Gradient 48.0 mmHg 09/12/20 23:32 FiO2 30.0 09/12/20 23:32 Blood Gas Comments Faye well mts 09/12/20 23:32 Sodium 140 mmol/L (136-145) 09/12/20 22:41 Corrected Sodium TNP 09/12/20 22:41 Potassium 4.9 mmol/L (3.5-5.1) 09/12/20 22:41 Chloride 101 mmol/L (98-107) 09/12/20 22:41 Carbon Dioxide 40.1 mmol/L (21-32) H* 09/12/20 22:41 BUN 31 mg/dL (7-18) H 09/12/20 22:41 Creatinine 2.55 mg/dL (0.70-1.30) H 09/12/20 22:41 Est GFR (MDRD) Af Amer 31 (>60) L 09/12/20 22:41 Est GFR (MDRD) Non-Af 26 (>60) L 09/12/20 22:41 Glucose 103 mg/dL (65-99) H 09/12/20 22:41 Calcium 8.3 mg/dL (8.5-10.1) L 09/12/20 22:41 Corrected Calcium 9.1 mg/dL (8.5-10.1) 09/12/20 22:41 Magnesium 3.1 mg/dL (1.7-2.9) H 09/12/20 22:41 Total Bilirubin 0.40 mg/dL (0.2-1.0) 09/12/20 22:41 AST 23 Units/L (15-37) 09/12/20 22:41 ALT 21 Units/L (12-78) 09/12/20 22:41 Alkaline Phosphatase 90 Units/L (46-116) 09/12/20 22:41 Troponin I < 0.02 ng/mL (0-1.5) 09/12/20 22:41 B-Natriuretic Peptide 274 pg/mL (0-79) H 09/12/20 22:41 Total Protein 7.6 g/dL (6.4-8.2) 09/12/20 22:41 Albumin 3.0 g/dL (3.4-5.0) L 09/12/20 22:41 Globulin 4.6 g/dL (2.5-4.5) H 09/12/20 22:41 Albumin/Globulin Ratio 0.7 Ratio (1.1-2.1) L 09/12/20 22:41 SARS-CoV-2 (PCR) Negative (NEGATIVE) 09/12/20 23:23 Influenza Type A (PCR) Negative (NEGATIVE) 09/12/20 23:23 Influenza Type B (PCR) Negative (NEGATIVE) 09/12/20 23:23 RSV (PCR) Negative (NEGATIVE) 09/12/20 23:23 Blood Type A POSITIVE 09/12/20 00:06 Antibody Screen Negative 09/12/20 00:06 Crossmatch See Detail 09/12/20 00:06 Other Results Comments: PATIENT TYPED AND CROSSED FOR 1 UNIT PACKED RED BLOOD CELL XRAY XRAY Interpreted by: Radiologist (PORTABLE CHEST XRAY -RIGHT BASILAR ATELECTASIS VS CONSOLIDATION) X-ray Results: HEAD CT- NO ACUTE INTRACRANIAL ABNORMALITY, CERVICAL SPINE CT NO EVIDENC OF FRACTURE OR SUBLUXATION EKG Rate: 61 [place]: Normal Block: IVCD ST: Lat (NO CHANGE IN T-WAVE INVERSION V4-V6 FROM 08/28/2020) Opioid Opioid Risk Tool Age (Silverio box if 16-45): No History of Preadolescent Sexual Abuse: No Total: 0 Total Score Risk Category: Low Risk Copyright: Jeromy JERRY predicting aberrant behaviors Diagnosis Discharge Problem: Acute exacerbation of chronic obstructive pulmonary disease, Symptomatic anemia, Pneumonia Instructions Forms: Social Distancing
[2020-09-12 22:23] LABS: ABG BASE EXCESS 13.7 mmol/L (-2.0-2.0)
[2020-09-12 22:24] LABS: ABG ALLEN TEST POS; ABG HCO3 43.2 mmol/L (22-26)
[2020-09-12] MEDS ORDERED: LASIX IVP ONE ×2 (22:30→22:35)
[2020-09-12 22:52] LABS: EOSINOPHILS # (AUTO) 0.1 x10^3/uL (0.0-0.2); HEMATOCRIT 25.3 % (42.0-54.0); HEMOGLOBIN 7.7 g/dL (13.5-18.0); NEUTROPHILS % (AUTO) 81.4 % (42.0-75.0)
[2020-09-12 23:03] LABS: BASOPHILS % (AUTO) 0.4 % (0.2-1.0); EOSINOPHILS % (AUTO) 1.5 % (0.9-2.9); LYMPHOCYTES # (AUTO) 0.4 X10^3/uL (1.3-2.9); LYMPHOCYTES % (AUTO) 6.4 % (21.0-51.0); MEAN CORPUSCULAR HEMOGLOBIN 22.9 pg (27.0-34.0); MEAN CORPUSCULAR HGB CONC 30.3 g/dL (33.0-35.0); MEAN CORPUSCULAR VOLUME 75.6 fL (80.0-100.0); MEAN PLATELET VOLUME 7.4 fL (7.4-11.0); MONOCYTES # (AUTO) 0.7 x10^3/uL (0.3-0.8); MONOCYTES % (AUTO) 10.3 % (0.0-13.0); NEUTROPHILS # (AUTO) 5.6 x10^3/uL (2.2-4.8); PLATELET COUNT 335 X10^3/uL (150.0-450.0); RED BLOOD COUNT 3.35 X10^6/uL (4.7-6.0); RED CELL DISTRIBUTION WIDTH 19.3 % (11.6-16.5); WHITE BLOOD COUNT 6.8 X10^3/uL (3.6-10.0)
[2020-09-12 23:08] LABS: ALANINE AMINOTRANSFERASE 21 Units/L (12-78); ALKALINE PHOSPHATASE 90 Units/L (46-116); ASPARTATE AMINO TRANSFERASE 23 Units/L (15-37); BLOOD UREA NITROGEN 31 mg/dL (7-18); CALCIUM 8.3 mg/dL (8.5-10.1); CHLORIDE 101 mmol/L (98-107); COR CA(FOR HYPOALB) 9.1 mg/dL (8.5-10.1); CREATININE 2.55 mg/dL (0.70-1.30); SODIUM 140 mmol/L (136-145); TOTAL PROTEIN 7.6 g/dL (6.4-8.2); TROPONIN I < 0.02 ng/mL (0-1.5); eGFR NON BLACK RACES 26 (>60)
[2020-09-12 23:11] LABS: CARBON DIOXIDE 40.1 mmol/L (21-32); MAGNESIUM 3.1 mg/dL (1.7-2.9)
--- NOTE | 2020-09-12 23:14 | RAD ---
PROCEDURE: Chest X-ray 1 View .HISTORY: Dyspnea and syncope with hypoxia.TECHNIQUE: AP view .COMPARISON: 09/03/2020.TECHNICAL QUALITY: Satisfactory .FINDINGS:Unchanged start size upper limits of normal.Mediastinum and hilar regions show no masses or lymphadenopathy .Normal central vascularity .Some improvement in the density right base may represent improving atelectasis or consolidation. Left lung field is clear. No pleural fluid or pneumothorax.No acute bony abnormality .IMPRESSION:Improving right base atelectasis/consolidation.Electronically signed by: Alfredo Cabrera (Sep 12, 2020 23:11:46)
[2020-09-12] MEDS ORDERED: ROCEPHIN 1 GRAM IV PREMIX 1 G/50 ML IV.SOLN. IV ONE (23:32)
[2020-09-12 23:33] LABS: ABG ALLEN TEST POS; ABG BASE EXCESS 15.4 mmol/L (-2.0-2.0); ABG HCO3 44.7 mmol/L (22-26)
--- NOTE | 2020-09-12 23:49 | CT ---
PROCEDURE: CT Head without Contrast .HISTORY: Syncope.TECHNIQUE: Axial images were performed through the head without the administration of IV contrast with multiplanar reformations . Dose reduction techniques including Automated Exposure Control (AEC) and adjustment of mA and kV were utilized .COMPARISON: 09/06/2017.TECHNICAL QUALITY: Satisfactory .FINDINGS:Brain shows no mass, hemorrhage, or acute stroke.Minimal periventricular old micro ischemic changes. Minimal diffuse cerebral and cerebellar atrophy.Ventricles are normal size for patient's age.No acute skull or scalp abnormality.Visualized sinuses and mastoids are clear.IMPRESSION:1. No acute intracranial abnormality.2. Mild senescent changes.Electronically signed by: Alfredo Cabrera (Sep 12, 2020 23:47:11)
--- NOTE | 2020-09-12 23:52 | CT ---
PROCEDURE: CT Cervical Spine without Contrast .HISTORY: Syncope and fall.TECHNIQUE: Axial images were performed through the cervical spine without the administration of IV contrast with multiplanar reformations . Dose reduction techniques including Automated Exposure Control (AEC) and adjustment of mA and kV were utilized .COMPARISON: None .TECHNICAL QUALITY: Satisfactory .FINDINGS:No acute fracture or displacement.Mild disc space narrowing lower cervical spine with spondylosis.Facet show normal alignment with scattered mild arthrosis. Spinous processes are unremarkable.Minimal median atlantoaxial joint arthrosis.Moderate atherosclerosis at the carotid bifurcations. Small bilateral pleural effusions at the lung apices.IMPRESSION:1. No acute bony abnormality.2. Mild cervical spondyloarthropathy.3. Moderate atherosclerosis.4. Bilateral pleural effusions.Electronically signed by: Alfredo Cabrera (Sep 12, 2020 23:51:04)
[2020-09-13] MEDS ORDERED: ROCEPHIN 1 GRAM IV PREMIX 1 G/50 ML IV.SOLN. IV ONE (00:11)
[2020-09-13] MEDS ORDERED: ROCEPHIN VIAL 1 GRAM 0.75 G in NS 50 ML IV 50 ML IV SCH ×2 (01:18→21:00)
[2020-09-13] MEDS ORDERED: ZITHROMAX INJ 500 MG VIAL 500 MG in NS 250 ML IV 250 ML IV SCH (01:18)
[2020-09-13] MEDS ORDERED: DUONEB 0.5 MG/3 MG (3 mL) NEB ONE (01:29)
[2020-09-13] MEDS ORDERED: DUONEB 0.5 MG/3 MG (3 mL) NEB SCH ×2 (01:45→06:00)
[2020-09-13] MEDS ORDERED: HALDOL INJ ONE (03:07)
[2020-09-13] MEDS ORDERED: HALDOL INJ IM ONE ×2 (03:15→14:36)
[2020-09-13] MEDS ORDERED: NS 250 ML IV 250 ML IV ONE (03:22)
[2020-09-13] MEDS: DUONEB 0.5 MG/3 MG (3 mL) NEB SCH ×5 (05:45→20:31)
[2020-09-13 05:50] LABS: BILIRUBIN,URINE NEGATIVE (NEGATIVE); BLOOD/HEMOGLOBIN,URINE NEGATIVE (NEGATIVE); GLUCOSE, URINE NEGATIVE (NEGATIVE); KETONES,URINE NEGATIVE (NEGATIVE); LEUKOCYTE ESTERASE ,URINE NEGATIVE (NEGATIVE); NITRITES,URINE NEGATIVE (NEGATIVE); PROTEIN,URINE NEGATIVE (NEGATIVE); UROBILINOGEN,URINE NORMAL (NORMAL)
[2020-09-13 05:56] LABS: APPEARANCE,URINE CLEAR (CLEAR); COLOR,URINE STRAW (YELLOW)
[2020-09-13 08:22] LABS: BASOPHILS % (AUTO) 0.6 % (0.2-1.0); EOSINOPHILS # (AUTO) 0.1 x10^3/uL (0.0-0.2); EOSINOPHILS % (AUTO) 2.1 % (0.9-2.9); HEMATOCRIT 23.9 % (42.0-54.0); HEMOGLOBIN 7.4 g/dL (13.5-18.0); LYMPHOCYTES # (AUTO) 0.8 X10^3/uL (1.3-2.9); LYMPHOCYTES % (AUTO) 12.2 % (21.0-51.0); MEAN CORPUSCULAR HEMOGLOBIN 23.1 pg (27.0-34.0); MEAN CORPUSCULAR HGB CONC 30.8 g/dL (33.0-35.0); MEAN CORPUSCULAR VOLUME 74.9 fL (80.0-100.0); MEAN PLATELET VOLUME 7.5 fL (7.4-11.0); MONOCYTES # (AUTO) 0.9 x10^3/uL (0.3-0.8); NEUTROPHILS % (AUTO) 72.1 % (42.0-75.0); PLATELET COUNT 311 X10^3/uL (150.0-450.0); RED BLOOD COUNT 3.19 X10^6/uL (4.7-6.0); RED CELL DISTRIBUTION WIDTH 19.3 % (11.6-16.5); WHITE BLOOD COUNT 6.9 X10^3/uL (3.6-10.0)
[2020-09-13 08:47] LABS: ANISOCYTOSIS SLIGHT; MICROCYTOSIS SLIGHT; PLATELET MORPHOLOGY COMMENT NORMAL (NORMAL)
[2020-09-13 08:57] LABS: ALANINE AMINOTRANSFERASE 21 Units/L (12-78); ALBUMIN 2.8 g/dL (3.4-5.0); ALKALINE PHOSPHATASE 84 Units/L (46-116); ASPARTATE AMINO TRANSFERASE 27 Units/L (15-37); BLOOD UREA NITROGEN 32 mg/dL (7-18); CALCIUM 8.1 mg/dL (8.5-10.1); CHLORIDE 103 mmol/L (98-107); COR CA(FOR HYPOALB) 9.1 mg/dL (8.5-10.1); CREATINE KINASE 132 Units/L (39-308); CREATINE KINASE MB 1.3 ng/mL (0-4.0); CREATININE 2.25 mg/dL (0.70-1.30); SODIUM 143 mmol/L (136-145); TOTAL PROTEIN 7.2 g/dL (6.4-8.2); TROPONIN I 0.02 ng/mL (0-1.5); eGFR NON BLACK RACES 29 (>60)
[2020-09-13 08:58] LABS: CARBON DIOXIDE 41.7 mmol/L (21-32)
[2020-09-13] MEDS ORDERED: ALDACTONE TAB 25 MG PO SCH (09:00)
[2020-09-13] MEDS ORDERED: PROTONIX TAB 40 MG PO SCH (09:00)
[2020-09-13] MEDS ORDERED: PEPCID TAB 40 MG PO SCH (09:00)
[2020-09-13] MEDS ORDERED: PEPCID TAB 20 MG PO SCH (09:00)
[2020-09-13] MEDS ORDERED: GLUCOTROL PO SCH (09:00)
[2020-09-13] MEDS ORDERED: LASIX PO SCH (09:00)
[2020-09-13] MEDS ORDERED: [UNRECOGNIZED DRUG - OTHER] INH SCH (09:00)
[2020-09-13] MEDS ORDERED: PULMICORT NEB TX 0.5 MG NEB SCH (09:00)
[2020-09-13] MEDS ORDERED: COLCRYS TAB 0.6 MG PO SCH (09:00)
[2020-09-13] MEDS ORDERED: [UNRECOGNIZED DRUG - OTHER] INH SCH (09:00)
[2020-09-13] MEDS: PULMICORT NEB TX 0.5 MG NEB SCH ×2 (09:11→20:31)
[2020-09-13 09:12] LABS: IRON 19 ug/dL (50-175)
[2020-09-13 10:55] LABS: FREE T4 (FREE THYROXINE) 0.85 ng/dL (0.76-1.46); MAGNESIUM 3.2 mg/dL (1.7-2.9); TSH (3RD GENERATION) 11.59 uIU/mL (0.358-3.74)
[2020-09-13] MEDS ORDERED: INFeD or DEXFERRUM 25 MG in NS 100 ML IV 100 ML IV NR (11:00)
[2020-09-13 11:05] VITALS: BMI 36.3
[2020-09-13] MEDS: CORDARONE TAB 200 MG PO SCH (11:30)
[2020-09-13] MEDS: PROTONIX INJ 40 MG VIAL IVP SCH ×2 (11:30→20:38)
[2020-09-13] MEDS ORDERED: NS 1/2 1000 ML IV 1,000 ML IV ONE (11:33)
[2020-09-13] MEDS: ELIQUIS PO SCH ×2 (11:52→20:35)
[2020-09-13] MEDS: REQUIP PO SCH ×2 (11:55→20:39)
[2020-09-13] MEDS: FLOMAX PO SCH (11:55)
[2020-09-13] MEDS: SYNTHROID 100 mcg TAB PO SCH (11:56)
--- NOTE | 2020-09-13 11:57 | VAS ---
HISTORYB/L LEG EDEMAExtremity pain, swelling, and edemaStudy: Bilateral lower extremity Doppler venous ultrasound.TECHNIQUE: Multiple katz scale and color flow Doppler images of the deep venous system were obtained of the [right and left] lower extremity.FINDINGS:The deep venous system of the [right and left lower extremities were] evaluated from the level of the common femoral veins through the popliteal veins, bilaterally.Normal color flow and augmentation can be observed. In addition, normal compression is seen throughout the deep venous system. No Gale's cyst is seen.IMPRESSION:1. Negative examination for DVT.Electronically signed by: DARREL WARNER III (Sep 13, 2020 11:55:47)
[2020-09-13] MEDS ORDERED: INFeD or DEXFERRUM 975 MG in NS 500 ML IV 500 ML IV NR (12:00)
[2020-09-13] MEDS: NS 1/2 1000 ML IV 1,000 ML IV SCH ×3 (12:00→23:30)
--- NOTE | 2020-09-13 14:26 | RAD ---
CHEST, 1 VIEWHISTORY:COPD, CHFStudy: Single view of the chest.Comparison:September 12, 2020Findings:Cardiomegaly and pulmonary vascular congestion. No focal consolidations, pleural effusions or pneumothorax. Osseous structures demonstrate no acute abnormality.IMPRESSION:1. Cardiomegaly and pulmonary vascular congestion. No change from prior.Electronically signed by: JUAN DIEGO BERMUDEZ (Sep 13, 2020 14:25:33)
[2020-09-13] MEDS ORDERED: NS 100 ML IV 100 ML ONE (17:22)
[2020-09-13] MEDS: LASIX IVP SCH (17:31)
--- NOTE | 2020-09-13 19:32 | DR.H&P ---
H&P - History & Physical for Day of: H&P Date: 09/13/20 - Chief Complaint Chief Complaint: AMS, SOB - History of Present Illness History of Present Illness: PATIENT WITH A HISTORY OF CHF, COPD ANEMIA, HAD SYNCOPAL EPSIODE, FOUND LETHARGIC BY EMS,AFTER FALL IN BATHROOM. SPOUSE UNABLE TO AWAKE PATIENT. EMS APPLIED BIPAP AND PATIENT AWAKENS. PATIENT DENIES HEADACHE, CHEST PAIN. PATIENT SPOUSE STATES HE WAS EATING AND DRINKING GOOD ON FRIDAY WITH AMS ONSET YESTERDAY AFTERNOON. - Past Medical History Past Medical History: Hypertension, Dyslipidemia, Diabetes, Renal Disease, Hypothyroidism, Anemia, COPD, PUD, GERD, CHF Additional Medical History: Cataracts, Atrial Fibrillation, Gastrointesinal Ulcer, Muscle Weakness, Restless Leg Syndrome - Past Surgical History Surgical History: Appendectomy Additional Surgical History: Left Orchiectomy, Ligation of right inguinal vessel to stop bleeding - Family History Family Medical History: Diabetes Mellitus, Coronary Artery Disease, Hypertension - Social History Does patient currently use any type of tobacco product: No Have you used tobacco products in the last 12 months: No Type of Tobacco Use: None Does any household member use tobacco: No Alcohol Use: None Drug Use: Prescription Drugs - Medications Home Medications: No Known Drug Allergies Allergy (Verified 08/29/20 01:35) CONTINUE taking the following medications spironolactone 25 mg PO BID 09/12/20 [History] - Review of Systems Constitutional: Weakness Eyes: No Symptoms Reported ENT: No Symptoms Reported Respiratory: Shortness of Breath Cardiovascular: Edema Gastrointestinal: No Symptoms Reported Genitourinary: No Symptoms Reported Musculoskeletal: No Symptoms Reported Skin: No Symptoms Reported Neurological: Weakness, Confusion - Physical Exam Vital Signs: Temperature 98.3 F Pulse Rate [Right] 60 Pulse Rate 65 Respiratory Rate 29 Blood Pressure [Left Arm] 127/83 Blood Pressure [Right Arm] 153/70 Blood Pressure 134/61 O2 Sat by Pulse Oximetry 90 Oriented: Person Eyes: Normal Ear: Normal Nose: Normal Throat: Dry Respiratory: RLL Diminished, LLL Diminished Cardiovascular: Edema : Normal Palpation: Normal Tenderness: Normal Skin: Decreased Turgur Musculoskeletal: Leg, Swelling, Motor Deficit Psychiatric: Anxiety Affect: Anxious Speech Pattern: Appropriate, Delayed - Assessment/Plan (1) Acute exacerbation of CHF (congestive heart failure) Status: Acute Plan: ADMIT, STRICT I&OS. ABG ON ADMISSION, BIPAP PRN. IV LASIX, CARDIAC MONITORING. REPEAT AM ABG. CONFIRM AND RESUME HOME MEDICATION. AMMONIA LEVEL, CT HEAD IN ER ON ADMISSION NEGATIVE FOR CVA. SUPPLEMENTAL O2, DUO NEBS, BLOOD CULTURE ON ADMISSION (2) Pneumonia Status: Acute (3) COPD (chronic obstructive pulmonary disease) Qualifiers: Status: Chronic (4) Anemia Qualifiers: Status: Acute (5) Renal disease Status: Chronic (6) Diabetes mellitus, type 2 Qualifiers: Status: Chronic (7) Hypothyroidism Qualifiers: Status: Chronic (8) Hypertension Qualifiers: Status: Chronic - Allergies Allergies/Adverse Reactions: Allergies Allergy/AdvReac Type Severity Reaction Status Date / Time No Known Drug Allergies Allergy Verified 08/29/20 01:35
[2020-09-13] MEDS: SNACK - Diabetic Appropriate PO SCH (20:35)
[2020-09-13] MEDS: KLONOPIN TAB 0.5 MG PO SCH (20:36)
[2020-09-13] MEDS: LIPITOR TAB 20 MG PO SCH (20:37)
[2020-09-13] MEDS: XALATAN OP SCH (20:44)
[2020-09-13 22:44] LABS: HEMATOCRIT 25.2 % (42.0-54.0); HEMOGLOBIN 7.9 g/dL (13.5-18.0)
[2020-09-14] MEDS: DUONEB 0.5 MG/3 MG (3 mL) NEB SCH ×6 (01:05→20:40)
[2020-09-14] MEDS ORDERED: ZITHROMAX INJ 500 MG VIAL 500 MG in NS 250 ML IV 250 ML IV SCH (02:00)
[2020-09-14 05:25] LABS: BASOPHILS % (AUTO) 0.5 % (0.2-1.0); EOSINOPHILS # (AUTO) 0.2 x10^3/uL (0.0-0.2); EOSINOPHILS % (AUTO) 2.6 % (0.9-2.9); HEMATOCRIT 25.8 % (42.0-54.0); HEMOGLOBIN 8.1 g/dL (13.5-18.0); LYMPHOCYTES # (AUTO) 0.9 X10^3/uL (1.3-2.9); LYMPHOCYTES % (AUTO) 14.9 % (21.0-51.0); MEAN CORPUSCULAR HGB CONC 31.5 g/dL (33.0-35.0); MEAN CORPUSCULAR VOLUME 76.2 fL (80.0-100.0); MEAN PLATELET VOLUME 7.9 fL (7.4-11.0); MONOCYTES # (AUTO) 0.7 x10^3/uL (0.3-0.8); MONOCYTES % (AUTO) 11.9 % (0.0-13.0); NEUTROPHILS # (AUTO) 4.2 x10^3/uL (2.2-4.8); NEUTROPHILS % (AUTO) 70.1 % (42.0-75.0); PLATELET COUNT 328 X10^3/uL (150.0-450.0); RED BLOOD COUNT 3.39 X10^6/uL (4.7-6.0); RED CELL DISTRIBUTION WIDTH 20.3 % (11.6-16.5)
[2020-09-14 05:41] LABS: ALANINE AMINOTRANSFERASE 19 Units/L (12-78); ALBUMIN 2.8 g/dL (3.4-5.0); ALKALINE PHOSPHATASE 82 Units/L (46-116); ASPARTATE AMINO TRANSFERASE 24 Units/L (15-37); BLOOD UREA NITROGEN 28 mg/dL (7-18); CALCIUM 8.2 mg/dL (8.5-10.1); CARBON DIOXIDE 39.2 mmol/L (21-32); CHLORIDE 104 mmol/L (98-107); COR CA(FOR HYPOALB) 9.2 mg/dL (8.5-10.1); CREATININE 1.81 mg/dL (0.70-1.30); SODIUM 143 mmol/L (136-145); TOTAL PROTEIN 7.1 g/dL (6.4-8.2); eGFR NON BLACK RACES 38 (>60)
--- NOTE | 2020-09-14 05:44 | RAD ---
PROCEDURE: Chest X-ray 1 View .HISTORY: Congestive heart failure.TECHNIQUE: AP view .COMPARISON: 09/13/2020.TECHNICAL QUALITY: Satisfactory .FINDINGS:Unchanged mild cardiomegaly.Mediastinum and hilar regions show no masses or lymphadenopathy .Minimally increased central vascularity.Mild consolidation lung bases may represent mild edema with no pleural fluid or pneumothorax.No acute bony abnormality .IMPRESSION:Mild congestive failure increased compared to previous study.Electronically signed by: Alfredo Cabrera (Sep 14, 2020 05:42:38)
[2020-09-14 06:10] LABS: ANISOCYTOSIS 1+; HYPOCHROMASIA SLIGHT; PLATELET MORPHOLOGY COMMENT NORMAL (NORMAL)
[2020-09-14] MEDS: ALDACTONE TAB 25 MG PO SCH (08:48)
[2020-09-14] MEDS: CORDARONE TAB 200 MG PO SCH (08:48)
[2020-09-14] MEDS: FLOMAX PO SCH (08:50)
[2020-09-14] MEDS: ELIQUIS PO SCH ×2 (08:50→21:05)
[2020-09-14] MEDS: SYNTHROID 100 mcg TAB PO SCH (08:51)
[2020-09-14] MEDS: PROTONIX INJ 40 MG VIAL IVP SCH ×2 (08:51→21:05)
[2020-09-14] MEDS: REQUIP PO SCH ×2 (08:52→21:05)
[2020-09-14] MEDS: LASIX IVP SCH ×2 (08:56→17:21)
[2020-09-14] MEDS: PULMICORT NEB TX 0.5 MG NEB SCH ×2 (09:00→20:40)
[2020-09-14 09:58] LABS: HEMATOCRIT 27.5 % (42.0-54.0); HEMOGLOBIN 8.6 g/dL (13.5-18.0)
[2020-09-14] MEDS: NS 1/2 1000 ML IV 1,000 ML IV SCH (10:14)
[2020-09-14] MEDS: SNACK - Diabetic Appropriate PO SCH (20:20)
[2020-09-14] MEDS: LIPITOR TAB 20 MG PO SCH (21:05)
[2020-09-14] MEDS: XALATAN OP SCH (21:05)
[2020-09-14] MEDS: KLONOPIN TAB 0.5 MG PO SCH (21:05)
[2020-09-15] MEDS: DUONEB 0.5 MG/3 MG (3 mL) NEB SCH ×6 (00:15→20:10)
--- NOTE | 2020-09-15 06:32 | RAD ---
HISTORYSOBSTUDYCHEST, 1 [id number].TECHNIQUEAP view of the chestFINDINGSCardiac silhouette is mildly enlarged. Similar appearance of near diffuse bilateral airspace opacities. The right costophrenic sulcus is blunted and the left is outside of the field of view. No pneumothorax.IMPRESSIONNo significant change. Moderate pulmonary edema pattern. Suspect small right pleural effusion.Electronically signed by: Azeem Chin (Sep 15, 2020 06:29:42)
[2020-09-15 06:42] LABS: BASOPHILS % (AUTO) 0.8 % (0.2-1.0); EOSINOPHILS # (AUTO) 0.2 x10^3/uL (0.0-0.2); EOSINOPHILS % (AUTO) 3.8 % (0.9-2.9); HEMATOCRIT 26.6 % (42.0-54.0); HEMOGLOBIN 8.4 g/dL (13.5-18.0); LYMPHOCYTES # (AUTO) 0.8 X10^3/uL (1.3-2.9); LYMPHOCYTES % (AUTO) 14.6 % (21.0-51.0); MEAN CORPUSCULAR HEMOGLOBIN 24.4 pg (27.0-34.0); MEAN CORPUSCULAR HGB CONC 31.8 g/dL (33.0-35.0); MEAN CORPUSCULAR VOLUME 76.8 fL (80.0-100.0); MEAN PLATELET VOLUME 7.7 fL (7.4-11.0); MONOCYTES # (AUTO) 0.7 x10^3/uL (0.3-0.8); MONOCYTES % (AUTO) 11.7 % (0.0-13.0); NEUTROPHILS # (AUTO) 3.9 x10^3/uL (2.2-4.8); NEUTROPHILS % (AUTO) 69.1 % (42.0-75.0); PLATELET COUNT 316 X10^3/uL (150.0-450.0); RED BLOOD COUNT 3.46 X10^6/uL (4.7-6.0); RED CELL DISTRIBUTION WIDTH 20.6 % (11.6-16.5); WHITE BLOOD COUNT 5.7 X10^3/uL (3.6-10.0)
[2020-09-15 06:58] LABS: ANISOCYTOSIS 1+; PLATELET MORPHOLOGY COMMENT NORMAL (NORMAL)
[2020-09-15 07:05] LABS: ALANINE AMINOTRANSFERASE 20 Units/L (12-78); ALBUMIN 2.8 g/dL (3.4-5.0); ALKALINE PHOSPHATASE 85 Units/L (46-116); ASPARTATE AMINO TRANSFERASE 23 Units/L (15-37); BLOOD UREA NITROGEN 26 mg/dL (7-18); CALCIUM 8.3 mg/dL (8.5-10.1); CHLORIDE 104 mmol/L (98-107); COR CA(FOR HYPOALB) 9.3 mg/dL (8.5-10.1); SODIUM 144 mmol/L (136-145); TOTAL PROTEIN 7.1 g/dL (6.4-8.2); eGFR NON BLACK RACES 38 (>60)
[2020-09-15 07:18] LABS: CARBON DIOXIDE 42.6 mmol/L (21-32)
[2020-09-15] MEDS: ALDACTONE TAB 25 MG PO SCH (09:44)
[2020-09-15] MEDS: CORDARONE TAB 200 MG PO SCH (09:44)
[2020-09-15] MEDS: ELIQUIS PO SCH ×2 (09:45→21:38)
[2020-09-15] MEDS: PROTONIX INJ 40 MG VIAL IVP SCH ×2 (09:45→21:37)
[2020-09-15] MEDS: ZITHROMAX INJ 500 MG VIAL 500 MG in NS 250 ML IV 250 ML IV SCH (09:45)
[2020-09-15] MEDS: FLOMAX PO SCH (09:45)
[2020-09-15] MEDS: LASIX IVP SCH ×2 (09:45→16:51)
[2020-09-15] MEDS: PULMICORT NEB TX 0.5 MG NEB SCH ×2 (09:46→20:10)
[2020-09-15] MEDS: SOLU-Medrol 40 MG VIAL IVP SCH ×2 (09:46→13:38)
[2020-09-15] MEDS: SYNTHROID 100 mcg TAB PO SCH (09:46)
[2020-09-15] MEDS: REQUIP PO SCH ×2 (09:46→21:39)
[2020-09-15] MEDS: NS 1/2 1000 ML IV 1,000 ML IV SCH ×2 (13:17→20:01)
[2020-09-15] MEDS: SNACK - Diabetic Appropriate PO SCH ×2 (20:01)
[2020-09-15] MEDS: LIPITOR TAB 20 MG PO SCH (21:39)
[2020-09-15] MEDS: KLONOPIN TAB 0.5 MG PO SCH (21:39)
--- NOTE | 2020-09-15 21:46 | PCM.PROG ---
Progress Note - Progress Note for Day of Date of Exam: 09/14/20 - Subjective Subjective: WAS ADMITTED FOR TREATMENT OF CHF EXACERBATION, PNEUMONIA, COPD, AND ANEMIA. HE HAS A PMH OF CHF, COPD, ANEMIA, PUD, GERD, A-FIB, CHRONIC RENAL DISEASE, DM II, HYPOTHYROIDISM, AND HTN. HE WAS HOSPITALIZED AND TREATED FOR SAME DIAGNOSIS ABOUT TWO WEEKS AGO. SPOUSE REPORTS THAT SHE FOUND PATIENT LETHARGIC IN THE BATHROOM PRIOR TO ADMISSION. HE HAS BEEN UTILIZING THE BIPAP AND SUPPLEMENTAL OXYGEN. TODAY, PATIENT IS ALERT AND ORIENTED, LYING IN BED ON MORNING ROUNDS. HE CONTINUES WITH COMPLAINTS OF SHORTNESS OF BREATH AND WEAKNESS. ON EXAMINATION, HEART IS REGULAR IN RATE AND RHYTHM. BILATERAL LUNGS NOTED WITH DIMINISHED LUNG SOUNDS THROUGHOUT. HE HAS 1+ PITTING EDEMA TO BILATER AL LOWER EXTREMITIES. HIS VITALS THIS MORNING ARE: 97.7-61-31-96%-128/62. LABS WERE OBTAINED. ABNORMAL LAB VALUES INCLUDE THE FOLLOWING: RBC 3.39, HGB 8.1, HCT 25.8, CARBON DIOXIDE 39.2, BUN 28, CREATININE 1.81, GLUCOSE 110, CALCIUM 8.2, BNP 238, ALBUMIN 2.8. BLOOD AND URINE CULTURES ARE PENDING. A CHEST XRAY WAS OBTAINED THIS MORNING AND REVEALED: Mild congestive failure increased compared to previous study. HE IS CURRENTLY RECEIVING 1/2NS AT KVO, LASIX 40MG IV BID, AZITHROMYCIN 500MG IV DAILY, DUONEBS Q4H, PULMICORT NEBS BID, ELIQUIS 2.5MG PO BID, CORDARONE 200MG PO DAILY, LIPITOR 20MG PO HS, KLONOPIN 0.5MG PO HS, HUMULIN R SLIDING SCALE, OTBS ACHS, XALATAN 1 DROP PO HS, SYNTHROID 100MCG PO DAILY, PROTONIX 40MG IV BID, REQUIP 1MG PO BID, ALDACTONE 25MG PO DAILY, AND FLOMAX 0.4MG PO DAILY. WE WILL CONTINUE WITH CURRENT PLAN OF CARE TODAY. OTHERWISE, WE PLAN TO FOLLOW UP WITH AM LABS AND CHEST XRAY AND CONTINUE TO MONITOR. TIME SPENT ON CLINICAL ASSESSMENT, REVIEWING LABS AND IMAGING, DECISION MAKING, AND DOCUMENTATION GREATER THAN 45 MINUTES. - Past Medical Family Social History Past Med/Fam/Surg Hx: No changes since H&P Allergies: Allergies No Known Drug Allergies Allergy (Verified 08/29/20 01:35) - Review of Systems ROS: No change since H&P - Vital Signs and I&O's Vital Signs: Temperature 98.7 F Pulse Rate [Right] 60 Pulse Rate 72 Respiratory Rate 42 Blood Pressure [Left Arm] 127/83 Blood Pressure [Right Arm] 153/70 Blood Pressure 139/59 O2 Sat by Pulse Oximetry 92 Intake and Output: Intake & Output 09/13/20 09/14/20 09/15/20 09/16/20 11:59 11:59 11:59 11:59 Intake Total 615 / 615 2553 / 2553 1230 / 1230 874 / 874 Output Total 800 / 800 2550 / 2550 3950 / 3950 1550 / 1550 Balance -185 / -185 -2720 / -2720 -676 / -676 - Physical Exam Oriented: Person Eyes: Normal Ear: Normal Nose: Normal Throat: Normal Respiratory: Generalized, Diminished Cardiovascular: Edema : Normal Auscultation: Bowel Sounds: Normal Palpation: Normal Tenderness: Normal Skin: Decreased Turgur Musculoskeletal: Leg, Swelling, Motor Deficit Psychiatric: Anxiety Affect: Anxious Speech Pattern: Appropriate - Laboratory and Diagnostics Result Diagrams: 09/15/20 06:00 09/15/20 06:00 Labs: 09/12/20 00:06 Blood Blood Culture - Preliminary 09/14/20 13:31 Urine,Catheterized Urine Culture - Preliminary 09/12/20 23:58 Blood Blood Culture - Preliminary Laboratory WBC 5.7 X10^3/uL (3.6-10.0) 09/15/20 06:00 RBC 3.46 X10^6/uL (4.7-6.0) L 09/15/20 06:00 Hgb 8.4 g/dL (13.5-18.0) L 09/15/20 06:00 Hct 26.6 % (42.0-54.0) L 09/15/20 06:00 MCV 76.8 fL (80.0-100.0) L 09/15/20 06:00 MCH 24.4 pg (27.0-34.0) L 09/15/20 06:00 MCHC 31.8 g/dL (33.0-35.0) L 09/15/20 06:00 RDW 20.6 % (11.6-16.5) H 09/15/20 06:00 Plt Count 316 X10^3/uL (150.0-450.0) 09/15/20 06:00 Plt Count Comment Adequate (ADEQUATE) 09/15/20 06:00 MPV 7.7 fL (7.4-11.0) 09/15/20 06:00 Neut % (Auto) 69.1 % (42.0-75.0) 09/15/20 06:00 Lymph % (Auto) 14.6 % (21.0-51.0) L 09/15/20 06:00 [place] % (Auto) 11.7 % (0.0-13.0) 09/15/20 06:00 Eos % (Auto) 3.8 % (0.9-2.9) H 09/15/20 06:00 Baso % (Auto) 0.8 % (0.2-1.0) 09/15/20 06:00 Neut # (Auto) 3.9 x10^3/uL (2.2-4.8) 09/15/20 06:00 Lymph # (Auto) 0.8 X10^3/uL (1.3-2.9) L 09/15/20 06:00 [place] # (Auto) 0.7 x10^3/uL (0.3-0.8) 09/15/20 06:00 Eos # (Auto) 0.2 x10^3/uL (0.0-0.2) 09/15/20 06:00 Baso # (Auto) 0.0 X10^3/uL (0.0-0.1) 09/15/20 06:00 Absolute Nucleated RBC 0.1 /100WBC 09/15/20 06:00 Plt Morphology Comment Normal (NORMAL) 09/15/20 06:00 RBC Morphology Abnormal (NORMAL) 09/15/20 06:00 Hypochromasia Slight A 09/14/20 04:08 Anisocytosis 1+ A 09/15/20 06:00 Microcytosis Slight A 09/13/20 08:13 Sample Site Rra 09/12/20 23:32 ABG pH 7.350 (7.35-7.45) 09/12/20 23:32 ABG pCO2 81.0 mmHg (35.0-45.0) H* 09/12/20 23:32 ABG pO2 65.0 mmHg (80.0-100.0) L 09/12/20 23:32 ABG HCO3 44.7 mmol/L (22-26) H* 09/12/20 23:32 ABG O2 Saturation 91.0 % (90-100) 09/12/20 23:32 ABG Base Excess 15.4 mmol/L (-2.0-2.0) H 09/12/20 23:32 Simón Test Pos 09/12/20 23:32 A-a Gradient 48.0 mmHg 09/12/20 23:32 FiO2 30.0 09/12/20 23:32 Blood Gas Comments Faye well mts 09/12/20 23:32 Sodium 144 mmol/L (136-145) 09/15/20 06:00 Corrected Sodium TNP 09/15/20 06:00 Potassium 4.3 mmol/L (3.5-5.1) 09/15/20 06:00 Chloride 104 mmol/L (98-107) 09/15/20 06:00 Carbon Dioxide 42.6 mmol/L (21-32) H* 09/15/20 06:00 BUN 26 mg/dL (7-18) H 09/15/20 06:00 Creatinine 1.80 mg/dL (0.70-1.30) H 09/15/20 06:00 Est GFR (MDRD) Af Amer 46 (>60) L 09/15/20 06:00 Est GFR (MDRD) Non-Af 38 (>60) L 09/15/20 06:00 Glucose 96 mg/dL (65-99) 09/15/20 06:00 POC Glucose (mg/dL) 217 mg/dL (65-99) H 09/15/20 20:39 Calcium 8.3 mg/dL (8.5-10.1) L 09/15/20 06:00 Corrected Calcium 9.3 mg/dL (8.5-10.1) 09/15/20 06:00 Magnesium 3.2 mg/dL (1.7-2.9) H 09/13/20 10:20 Iron 19 ug/dL (50-175) L 09/13/20 08:13 Transferrin 293 mg/dL (202-364) 09/13/20 08:13 Ferritin 27 ng/mL (26-388) 09/13/20 08:13 Total Bilirubin 0.50 mg/dL (0.2-1.0) 09/15/20 06:00 AST 23 Units/L (15-37) 09/15/20 06:00 ALT 20 Units/L (12-78) 09/15/20 06:00 Alkaline Phosphatase 85 Units/L (46-116) 09/15/20 06:00 Ammonia 34 umol/L (11-32) H 09/13/20 10:20 Creatine Kinase 132 Units/L (39-308) 09/13/20 08:13 Creatine Kinase Cancelled 09/13/20 08:13 CK-MB (CK-2) 1.3 ng/mL (0-4.0) 09/13/20 08:13 CK-MB (CK-2) Cancelled 09/13/20 08:13 CK/CKMB % Calc 1.0 % (<4) 09/13/20 08:13 CK/CKMB % Calc Cancelled 09/13/20 08:13 Troponin I 0.02 ng/mL (0-1.5) 09/13/20 08:13 Troponin I Cancelled 09/13/20 08:13 B-Natriuretic Peptide 168 pg/mL (0-79) H 09/15/20 06:00 Total Protein 7.1 g/dL (6.4-8.2) 09/15/20 06:00 Albumin 2.8 g/dL (3.4-5.0) L 09/15/20 06:00 Globulin 4.3 g/dL (2.5-4.5) 09/15/20 06:00 Albumin/Globulin Ratio 0.7 Ratio (1.1-2.1) L 09/15/20 06:00 Vitamin B12 478 pg/mL (193-986) 09/13/20 08:13 Folate 19.1 ng/mL (>8.6) 09/13/20 08:13 Free T4 0.85 ng/dL (0.76-1.46) 09/13/20 10:20 TSH 3rd Generation 11.590 uIU/mL (0.358-3.74) H 09/13/20 10:20 Specimen Type Catherized urine 09/13/20 05:21 Urine Color Straw (YELLOW) 09/13/20 05:21 Urine Appearance Clear (CLEAR) 09/13/20 05:21 Urine pH 6.0 (5.0 - 8.0) 09/13/20 05:21 Ur Specific [place] 1.015 (1.000-1.030) 09/13/20 05:21 Urine Protein Negative (NEGATIVE) 09/13/20 05:21 Urine Glucose (UA) Negative (NEGATIVE) 09/13/20 05:21 Urine Ketones Negative (NEGATIVE) 09/13/20 05:21 Urine Occult Blood Negative (NEGATIVE) 09/13/20 05:21 Urine Nitrite Negative (NEGATIVE) 09/13/20 05:21 Urine Bilirubin Negative (NEGATIVE) 09/13/20 05:21 Urine Urobilinogen Normal (NORMAL) 09/13/20 05:21 Ur Leukocyte Esterase Negative (NEGATIVE) 09/13/20 05:21 Stool Description 75g greenish brown 09/14/20 15:40 Stl Occult Blood (IFOB) Positive (NEGATIVE) A 09/14/20 15:40 SARS-CoV-2 (PCR) Negative (NEGATIVE) 09/12/20 23:23 Influenza Type A (PCR) Negative (NEGATIVE) 09/12/20 23:23 Influenza Type B (PCR) Negative (NEGATIVE) 09/12/20 23:23 RSV (PCR) Negative (NEGATIVE) 09/12/20 23:23 Blood Type A POSITIVE 09/14/20 10:10 Antibody Screen Negative 09/12/20 00:06 Crossmatch See Detail 09/12/20 00:06 Tx React Prelim Eval Not related to trans 09/14/20 10:10 Tx React Symptoms See comment 09/14/20 10:10 Reaction Path Interpret Not related to trans 09/14/20 10:[address] ree maldonado 09/14/20 10:10 Blood Bank Comment Performed by P2 09/14/20 10:10 - Plan (1) Acute exacerbation of CHF (congestive heart failure) Status: Acute Qualifiers: Heart failure type: unspecified Qualified Code(s): I50.9 - Heart failure, unspecified (2) Pneumonia Status: Acute Qualifiers: Pneumonia type: due to unspecified organism Laterality: unspecified laterality Lung location: unspecified part of lung Qualified Code(s): J18.9 - Pneumonia, unspecified organism (3) Anemia Status: Acute Qualifiers: Anemia type: iron deficiency Iron deficiency anemia type: chronic blood loss Qualified Code(s): D50.0 - Iron deficiency anemia secondary to blood loss (chronic) (4) COPD (chronic obstructive pulmonary disease) Status: Chronic Qualifiers: COPD type: unspecified COPD (5) Hypothyroidism Status: Chronic Qualifiers: Hypothyroidism type: acquired (6) Diabetes mellitus, type 2 Status: Chronic Qualifiers: Diabetes mellitus snf insulin use: with snf use Diabetes mellitus complication status: with hyperglycemia Qualified Code(s): E11.65 - Type 2 diabetes mellitus with hyperglycemia; Z79.4 - roasterman (current) use of insulin (7) Renal disease Status: Chronic (8) Hypertension Status: Chronic Qualifiers: Hypertension type: primary hypertension
[2020-09-15] MEDS: HumuLIN R SUBCUT PRN (21:50)
[2020-09-15] MEDS: XALATAN OP SCH (21:50)
--- NOTE | 2020-09-15 21:53 | PCM.PROG ---
Progress Note - Progress Note for Day of Date of Exam: 09/15/20 - Subjective Subjective: WAS ADMITTED FOR TREATMENT OF CHF EXACERBATION, PNEUMONIA, COPD, AND ANEMIA. HE HAS A PMH OF CHF, COPD, ANEMIA, PUD, GERD, A-FIB, CHRONIC RENAL DISEASE, DM II, HYPOTHYROIDISM, AND HTN. HE WAS HOSPITALIZED AND TREATED FOR SAME DIAGNOSIS ABOUT TWO WEEKS AGO. SPOUSE REPORTS THAT SHE FOUND PATIENT LETHARGIC IN THE BATHROOM PRIOR TO ADMISSION. HE HAS BEEN UTILIZING THE BIPAP AND SUPPLEMENTAL OXYGEN. TODAY, PATIENT IS ALERT AND ORIENTED, LYING IN BED ON MORNING ROUNDS. HE CONTINUES WITH COMPLAINTS OF SHORTNESS OF BREATH AND WEAKNESS. HIS SATURATIONS DO DROP TO THE LOWER 80s ON AMBULATION. THEY RECOVER TO THE 90s WHEN HE IS RESTING. ON EXAMINATION, HEART IS REGULAR IN RATE AND RHYT HM. BILATERAL LUNGS NOTED WITH DIMINISHED LUNG SOUNDS THROUGHOUT. HE HAS 1+ PITTING EDEMA TO BILATERAL LOWER EXTREMITIES. HIS VITALS THIS MORNING ARE: 97.9-66-27-88%NC-148/65. LABS WERE OBTAINED. ABNORMAL LAB VALUES INCLUDE THE FOLLOWING: RBC 3.46, HGB 8.4, HCT 26.6, CARBON DIOXIDE 42.6, BUN 26, CREATININE 1.80, CALCIUM 8.3, BNP 168, ALBUMIN 2.8. BLOOD AND URINE CULTURES ARE PENDING. A CHEST XRAY WAS OBTAINED THIS MORNING AND REVEALED: No significant change. Moderate pulmonary edema pattern. Suspect small right pleural effusion. HE IS CURRENTLY RECEIVING 1/2NS AT KVO, LASIX 40MG IV BID, AZITHROMYCIN 500MG IV DAILY, DUONEBS Q4H, PULMICORT NEBS BID, ELIQUIS 2.5MG PO BID, CORDARONE 200MG PO DAILY, LIPITOR 20MG PO HS, KLONOPIN 0.5MG PO HS, HUMULIN R SLIDING SCALE, OTBS ACHS, XALATAN 1 DROP PO HS, SYNTHROID 100MCG PO DAILY, PROTONIX 40MG IV BID, REQUIP 1MG PO BID, ALDACTONE 25MG PO DAILY, AND FLOMAX 0.4MG PO DAILY. WE WILL HAVE PHYSICAL THERAPY WORK WITH HIM TODAY. OTHERWISE, WE PLAN TO FOLLOW UP WITH AM LABS AND CHEST XRAY AND CONTINUE TO MONITOR. TIME SPENT ON CLINICAL ASSESSMENT, REVIEWING LABS AND IMAGING, DECISION MAKING, AND DOCUMENTATION GREATER THAN 45 MINUTES. - Past Medical Family Social History Past Med/Fam/Surg Hx: No changes since H&P Allergies: Allergies No Known Drug Allergies Allergy (Verified 08/29/20 01:35) - Review of Systems ROS: No change since H&P - Vital Signs and I&O's Vital Signs: Temperature 98.7 F Pulse Rate [Right] 60 Pulse Rate 72 Respiratory Rate 42 Blood Pressure [Left Arm] 127/83 Blood Pressure [Right Arm] 153/70 Blood Pressure 139/59 O2 Sat by Pulse Oximetry 92 Intake and Output: Intake & Output 09/13/20 09/14/20 09/15/20 09/16/20 11:59 11:59 11:59 11:59 Intake Total 615 / 615 2553 / 2553 1230 / 1230 874 / 874 Output Total 800 / 800 2550 / 2550 3950 / 3950 1550 / 1550 Balance -185 / -185 -2720 / -2720 -676 / -676 - Physical Exam Oriented: Person Eyes: Normal Ear: Normal Nose: Normal Throat: Normal Respiratory: Generalized, Diminished Cardiovascular: Edema : Normal Auscultation: Bowel Sounds: Normal Tenderness: Normal Skin: Decreased Turgur Musculoskeletal: Leg, Swelling, Motor Deficit Psychiatric: Anxiety Affect: Anxious Speech Pattern: Appropriate - Laboratory and Diagnostics Result Diagrams: 09/15/20 06:00 09/15/20 06:00 Labs: 09/12/20 00:06 Blood Blood Culture - Preliminary 09/14/20 13:31 Urine,Catheterized Urine Culture - Preliminary 09/12/20 23:58 Blood Blood Culture - Preliminary Laboratory WBC 5.7 X10^3/uL (3.6-10.0) 09/15/20 06:00 RBC 3.46 X10^6/uL (4.7-6.0) L 09/15/20 06:00 Hgb 8.4 g/dL (13.5-18.0) L 09/15/20 06:00 Hct 26.6 % (42.0-54.0) L 09/15/20 06:00 MCV 76.8 fL (80.0-100.0) L 09/15/20 06:00 MCH 24.4 pg (27.0-34.0) L 09/15/20 06:00 MCHC 31.8 g/dL (33.0-35.0) L 09/15/20 06:00 RDW 20.6 % (11.6-16.5) H 09/15/20 06:00 Plt Count 316 X10^3/uL (150.0-450.0) 09/15/20 06:00 Plt Count Comment Adequate (ADEQUATE) 09/15/20 06:00 MPV 7.7 fL (7.4-11.0) 09/15/20 06:00 Neut % (Auto) 69.1 % (42.0-75.0) 09/15/20 06:00 Lymph % (Auto) 14.6 % (21.0-51.0) L 09/15/20 06:00 [place] % (Auto) 11.7 % (0.0-13.0) 09/15/20 06:00 Eos % (Auto) 3.8 % (0.9-2.9) H 09/15/20 06:00 Baso % (Auto) 0.8 % (0.2-1.0) 09/15/20 06:00 Neut # (Auto) 3.9 x10^3/uL (2.2-4.8) 09/15/20 06:00 Lymph # (Auto) 0.8 X10^3/uL (1.3-2.9) L 09/15/20 06:00 [place] # (Auto) 0.7 x10^3/uL (0.3-0.8) 09/15/20 06:00 Eos # (Auto) 0.2 x10^3/uL (0.0-0.2) 09/15/20 06:00 Baso # (Auto) 0.0 X10^3/uL (0.0-0.1) 09/15/20 06:00 Absolute Nucleated RBC 0.1 /100WBC 09/15/20 06:00 Plt Morphology Comment Normal (NORMAL) 09/15/20 06:00 RBC Morphology Abnormal (NORMAL) 09/15/20 06:00 Hypochromasia Slight A 09/14/20 04:08 Anisocytosis 1+ A 09/15/20 06:00 Microcytosis Slight A 09/13/20 08:13 Sample Site Rra 09/12/20 23:32 ABG pH 7.350 (7.35-7.45) 09/12/20 23:32 ABG pCO2 81.0 mmHg (35.0-45.0) H* 09/12/20 23:32 ABG pO2 65.0 mmHg (80.0-100.0) L 09/12/20 23:32 ABG HCO3 44.7 mmol/L (22-26) H* 09/12/20 23:32 ABG O2 Saturation 91.0 % (90-100) 09/12/20 23:32 ABG Base Excess 15.4 mmol/L (-2.0-2.0) H 09/12/20 23:32 Simón Test Pos 09/12/20 23:32 A-a Gradient 48.0 mmHg 09/12/20 23:32 FiO2 30.0 09/12/20 23:32 Blood Gas Comments Faye well mts 09/12/20 23:32 Sodium 144 mmol/L (136-145) 09/15/20 06:00 Corrected Sodium TNP 09/15/20 06:00 Potassium 4.3 mmol/L (3.5-5.1) 09/15/20 06:00 Chloride 104 mmol/L (98-107) 09/15/20 06:00 Carbon Dioxide 42.6 mmol/L (21-32) H* 09/15/20 06:00 BUN 26 mg/dL (7-18) H 09/15/20 06:00 Creatinine 1.80 mg/dL (0.70-1.30) H 09/15/20 06:00 Est GFR (MDRD) Af Amer 46 (>60) L 09/15/20 06:00 Est GFR (MDRD) Non-Af 38 (>60) L 09/15/20 06:00 Glucose 96 mg/dL (65-99) 09/15/20 06:00 POC Glucose (mg/dL) 217 mg/dL (65-99) H 09/15/20 20:39 Calcium 8.3 mg/dL (8.5-10.1) L 09/15/20 06:00 Corrected Calcium 9.3 mg/dL (8.5-10.1) 09/15/20 06:00 Magnesium 3.2 mg/dL (1.7-2.9) H 09/13/20 10:20 Iron 19 ug/dL (50-175) L 09/13/20 08:13 Transferrin 293 mg/dL (202-364) 09/13/20 08:13 Ferritin 27 ng/mL (26-388) 09/13/20 08:13 Total Bilirubin 0.50 mg/dL (0.2-1.0) 09/15/20 06:00 AST 23 Units/L (15-37) 09/15/20 06:00 ALT 20 Units/L (12-78) 09/15/20 06:00 Alkaline Phosphatase 85 Units/L (46-116) 09/15/20 06:00 Ammonia 34 umol/L (11-32) H 09/13/20 10:20 Creatine Kinase 132 Units/L (39-308) 09/13/20 08:13 Creatine Kinase Cancelled 09/13/20 08:13 CK-MB (CK-2) 1.3 ng/mL (0-4.0) 09/13/20 08:13 CK-MB (CK-2) Cancelled 09/13/20 08:13 CK/CKMB % Calc 1.0 % (<4) 09/13/20 08:13 CK/CKMB % Calc Cancelled 09/13/20 08:13 Troponin I 0.02 ng/mL (0-1.5) 09/13/20 08:13 Troponin I Cancelled 09/13/20 08:13 B-Natriuretic Peptide 168 pg/mL (0-79) H 09/15/20 06:00 Total Protein 7.1 g/dL (6.4-8.2) 09/15/20 06:00 Albumin 2.8 g/dL (3.4-5.0) L 09/15/20 06:00 Globulin 4.3 g/dL (2.5-4.5) 09/15/20 06:00 Albumin/Globulin Ratio 0.7 Ratio (1.1-2.1) L 09/15/20 06:00 Vitamin B12 478 pg/mL (193-986) 09/13/20 08:13 Folate 19.1 ng/mL (>8.6) 09/13/20 08:13 Free T4 0.85 ng/dL (0.76-1.46) 09/13/20 10:20 TSH 3rd Generation 11.590 uIU/mL (0.358-3.74) H 09/13/20 10:20 Specimen Type Catherized urine 09/13/20 05:21 Urine Color Straw (YELLOW) 09/13/20 05:21 Urine Appearance Clear (CLEAR) 09/13/20 05:21 Urine pH 6.0 (5.0 - 8.0) 09/13/20 05:21 Ur Specific [place] 1.015 (1.000-1.030) 09/13/20 05:21 Urine Protein Negative (NEGATIVE) 09/13/20 05:21 Urine Glucose (UA) Negative (NEGATIVE) 09/13/20 05:21 Urine Ketones Negative (NEGATIVE) 09/13/20 05:21 Urine Occult Blood Negative (NEGATIVE) 09/13/20 05:21 Urine Nitrite Negative (NEGATIVE) 09/13/20 05:21 Urine Bilirubin Negative (NEGATIVE) 09/13/20 05:21 Urine Urobilinogen Normal (NORMAL) 09/13/20 05:21 Ur Leukocyte Esterase Negative (NEGATIVE) 09/13/20 05:21 Stool Description 75g greenish brown 09/14/20 15:40 Stl Occult Blood (IFOB) Positive (NEGATIVE) A 09/14/20 15:40 SARS-CoV-2 (PCR) Negative (NEGATIVE) 09/12/20 23:23 Influenza Type A (PCR) Negative (NEGATIVE) 09/12/20 23:23 Influenza Type B (PCR) Negative (NEGATIVE) 09/12/20 23:23 RSV (PCR) Negative (NEGATIVE) 09/12/20 23:23 Blood Type A POSITIVE 09/14/20 10:10 Antibody Screen Negative 09/12/20 00:06 Crossmatch See Detail 09/12/20 00:06 Tx React Prelim Eval Not related to trans 09/14/20 10:10 Tx React Symptoms See comment 09/14/20 10:10 Reaction Path Interpret Not related to trans 09/14/20 10:[address] ree maldonado 09/14/20 10:10 Blood Bank Comment Performed by P2 09/14/20 10:10 - Plan (1) Acute exacerbation of CHF (congestive heart failure) Status: Acute Qualifiers: Heart failure type: unspecified Qualified Code(s): I50.9 - Heart failure, unspecified Plan: ADMIT, STRICT I&OS. ABG ON ADMISSION, BIPAP PRN. IV LASIX, CARDIAC MONITORING. REPEAT AM ABG. CONFIRM AND RESUME HOME MEDICATION. AMMONIA LEVEL, CT HEAD IN ER ON ADMISSION NEGATIVE FOR CVA. SUPPLEMENTAL O2, DUO NEBS, BLOOD CULTURE ON ADMISSION (2) Pneumonia Status: Acute Qualifiers: Pneumonia type: due to unspecified organism Laterality: unspecified laterality Lung location: unspecified part of lung Qualified Code(s): J18.9 - Pneumonia, unspecified organism (3) Anemia Status: Acute Qualifiers: Anemia type: iron deficiency Iron deficiency anemia type: chronic blood loss Qualified Code(s): D50.0 - Iron deficiency anemia secondary to blood loss (chronic) (4) COPD (chronic obstructive pulmonary disease) Status: Chronic Qualifiers: COPD type: unspecified COPD (5) Hypothyroidism Status: Chronic Qualifiers: Hypothyroidism type: acquired (6) Diabetes mellitus, type 2 Status: Chronic Qualifiers: Diabetes mellitus chcf insulin use: with chcf use Diabetes mellitus complication status: with hyperglycemia Qualified Code(s): E11.65 - Type 2 diabetes mellitus with hyperglycemia; Z79.4 - prison (current) use of insulin (7) Renal disease Status: Chronic (8) Hypertension Status: Chronic Qualifiers: Hypertension type: primary hypertension
[2020-09-16] MEDS: DUONEB 0.5 MG/3 MG (3 mL) NEB SCH ×6 (00:22→21:20)
[2020-09-16 05:03] LABS: ABG BASE EXCESS 17.9 mmol/L (-2.0-2.0)
[2020-09-16 05:04] LABS: ABG ALLEN TEST POS; ABG HCO3 46.5 mmol/L (22-26)
[2020-09-16] MEDS: NS 1/2 1000 ML IV 1,000 ML IV SCH ×3 (05:34→15:22)
[2020-09-16 06:05] LABS: BASOPHILS # (AUTO) 0.1 X10^3/uL (0.0-0.1); BASOPHILS % (AUTO) 1.4 % (0.2-1.0); HEMATOCRIT 27.1 % (42.0-54.0); HEMOGLOBIN 8.5 g/dL (13.5-18.0); LYMPHOCYTES # (AUTO) 0.2 X10^3/uL (1.3-2.9); LYMPHOCYTES % (AUTO) 4.1 % (21.0-51.0); MEAN CORPUSCULAR HEMOGLOBIN 24.1 pg (27.0-34.0); MEAN CORPUSCULAR HGB CONC 31.2 g/dL (33.0-35.0); MEAN CORPUSCULAR VOLUME 77.4 fL (80.0-100.0); MEAN PLATELET VOLUME 7.8 fL (7.4-11.0); MONOCYTES # (AUTO) 0.2 x10^3/uL (0.3-0.8); MONOCYTES % (AUTO) 3.8 % (0.0-13.0); NEUTROPHILS # (AUTO) 4.4 x10^3/uL (2.2-4.8); NEUTROPHILS % (AUTO) 90.7 % (42.0-75.0); PLATELET COUNT 335 X10^3/uL (150.0-450.0); RED CELL DISTRIBUTION WIDTH 21.2 % (11.6-16.5); WHITE BLOOD COUNT 4.8 X10^3/uL (3.6-10.0)
[2020-09-16] MEDS ORDERED: NS 1/2 1000 ML IV 1,000 ML IV ONE (06:14)
[2020-09-16 06:21] LABS: ALBUMIN 2.8 g/dL (3.4-5.0); CALCIUM 8.5 mg/dL (8.5-10.1); CARBON DIOXIDE 37.8 mmol/L (21-32); COR CA(FOR HYPOALB) 9.5 mg/dL (8.5-10.1); CREATININE 1.49 mg/dL (0.70-1.30); TOTAL PROTEIN 7.3 g/dL (6.4-8.2)
[2020-09-16 07:01] LABS: ANISOCYTOSIS 1+; BAND NEUTROPHILS % 2 % (0-10); PLATELET MORPHOLOGY COMMENT NORMAL (NORMAL)
[2020-09-16] MEDS: PULMICORT NEB TX 0.5 MG NEB SCH ×2 (09:22→21:20)
[2020-09-16] MEDS: PROTONIX INJ 40 MG VIAL IVP SCH (10:00)
[2020-09-16] MEDS: SYNTHROID 100 mcg TAB PO SCH (10:00)
[2020-09-16] MEDS: FLOMAX PO SCH (10:00)
[2020-09-16] MEDS: CORDARONE TAB 200 MG PO SCH (10:00)
[2020-09-16] MEDS: ZITHROMAX INJ 500 MG VIAL 500 MG in NS 250 ML IV 250 ML IV SCH (10:00)
[2020-09-16] MEDS: LASIX IVP SCH ×2 (10:00→16:54)
[2020-09-16] MEDS: ALDACTONE TAB 25 MG PO SCH (10:00)
[2020-09-16] MEDS: ELIQUIS PO SCH ×2 (10:00→20:33)
[2020-09-16] MEDS: REQUIP PO SCH ×2 (10:00→20:35)
[2020-09-16] MEDS: PROTONIX TAB 40 MG PO SCH ×2 (10:21→20:34)
--- NOTE | 2020-09-16 12:07 | RAD ---
HISTORYShortness of breathSTUDYChest AP [id number] heart remains enlarged. The david are prominent and indistinct the interstitium is prominent. Perihilar haziness is present. Findings are most consistent with congestive heart failure unchanged from the prior examination. A small left pleural effusion is likely present.IMPRESSIONNo change cardiomegaly with congestive heart failure when compared to the prior examinationElectronically signed by: GENE HANSON (Sep 16, 2020 12:05:20)
[2020-09-16] MEDS: HumuLIN R SUBCUT PRN (16:55)
[2020-09-16] MEDS: SNACK - Diabetic Appropriate PO SCH ×2 (20:25)
[2020-09-16] MEDS: KLONOPIN TAB 0.5 MG PO SCH (20:33)
[2020-09-16] MEDS: LIPITOR TAB 20 MG PO SCH (20:34)
[2020-09-16] MEDS: XALATAN OP SCH (20:35)
[2020-09-17] MEDS: DUONEB 0.5 MG/3 MG (3 mL) NEB SCH ×6 (00:15→21:01)
[2020-09-17 05:02] LABS: BASOPHILS % (AUTO) 0.3 % (0.2-1.0); EOSINOPHILS % (AUTO) 0.6 % (0.9-2.9); HEMATOCRIT 26.2 % (42.0-54.0); HEMOGLOBIN 8.1 g/dL (13.5-18.0); LYMPHOCYTES # (AUTO) 0.8 X10^3/uL (1.3-2.9); MEAN CORPUSCULAR HEMOGLOBIN 24.5 pg (27.0-34.0); MEAN CORPUSCULAR HGB CONC 31.1 g/dL (33.0-35.0); MEAN CORPUSCULAR VOLUME 78.6 fL (80.0-100.0); MEAN PLATELET VOLUME 7.6 fL (7.4-11.0); MONOCYTES # (AUTO) 0.7 x10^3/uL (0.3-0.8); MONOCYTES % (AUTO) 9.7 % (0.0-13.0); NEUTROPHILS # (AUTO) 5.4 x10^3/uL (2.2-4.8); NEUTROPHILS % (AUTO) 78.4 % (42.0-75.0); PLATELET COUNT 332 X10^3/uL (150.0-450.0); RED BLOOD COUNT 3.33 X10^6/uL (4.7-6.0); RED CELL DISTRIBUTION WIDTH 21.5 % (11.6-16.5); WHITE BLOOD COUNT 6.9 X10^3/uL (3.6-10.0)
[2020-09-17 05:19] LABS: ALBUMIN 2.8 g/dL (3.4-5.0); CALCIUM 8.2 mg/dL (8.5-10.1); CARBON DIOXIDE 39.1 mmol/L (21-32); COR CA(FOR HYPOALB) 9.2 mg/dL (8.5-10.1); CREATININE 1.86 mg/dL (0.70-1.30); TOTAL PROTEIN 7.2 g/dL (6.4-8.2)
[2020-09-17 05:26] LABS: ANISOCYTOSIS 1+; HYPOCHROMASIA 1+; MICROCYTOSIS 1+; PLATELET MORPHOLOGY COMMENT NORMAL (NORMAL)
[2020-09-17 05:27] LABS: STOMATOCYTES 1+
--- NOTE | 2020-09-17 08:05 | RAD ---
HISTORYACUTE EXACERBATION COPD, PNEUMONIASTUDYCHEST, 1 [id number]/24/2021FINDINGSAbnormal opacity in most of the right lung and in the upper left lung are not changed consistent with pneumonia. Small left and possible tiny right effusion unchanged. No pneumothorax.The heart size is magnified.Bones are unremarkable.EKG leads are noted.IMPRESSION1. Unchanged pneumoniaElectronically signed by: Jean-Pierre Brady (Sep 17, 2020 08:03:02)
[2020-09-17] MEDS: ALDACTONE TAB 25 MG PO SCH (08:39)
[2020-09-17] MEDS: ELIQUIS PO SCH ×2 (08:40→21:00)
[2020-09-17] MEDS: CORDARONE TAB 200 MG PO SCH (08:40)
[2020-09-17] MEDS: FLOMAX PO SCH (08:43)
[2020-09-17] MEDS: LASIX IVP SCH ×2 (08:43→17:34)
[2020-09-17] MEDS: PROTONIX TAB 40 MG PO SCH ×2 (08:44→21:00)
[2020-09-17] MEDS: REQUIP PO SCH ×2 (08:44→21:00)
[2020-09-17] MEDS: SYNTHROID 100 mcg TAB PO SCH (08:44)
[2020-09-17] MEDS: ZITHROMAX INJ 500 MG VIAL 500 MG in NS 250 ML IV 250 ML IV SCH (08:44)
[2020-09-17] MEDS: PULMICORT NEB TX 0.5 MG NEB SCH ×2 (09:14→21:01)
[2020-09-17] MEDS: NS 1/2 1000 ML IV 1,000 ML IV SCH ×2 (17:33→19:21)
[2020-09-17] MEDS: SNACK - Diabetic Appropriate PO SCH (20:00)
[2020-09-17] MEDS: XALATAN OP SCH (21:00)
[2020-09-17] MEDS: KLONOPIN TAB 0.5 MG PO SCH (21:00)
[2020-09-17] MEDS: LIPITOR TAB 20 MG PO SCH (21:00)
[2020-09-18] MEDS: DUONEB 0.5 MG/3 MG (3 mL) NEB SCH ×6 (00:50→20:35)
[2020-09-18 05:08] LABS: BASOPHILS # (AUTO) 0.1 X10^3/uL (0.0-0.1); BASOPHILS % (AUTO) 0.8 % (0.2-1.0); EOSINOPHILS # (AUTO) 0.1 x10^3/uL (0.0-0.2); EOSINOPHILS % (AUTO) 1.7 % (0.9-2.9); HEMATOCRIT 27.7 % (42.0-54.0); HEMOGLOBIN 8.6 g/dL (13.5-18.0); LYMPHOCYTES # (AUTO) 0.5 X10^3/uL (1.3-2.9); LYMPHOCYTES % (AUTO) 7.8 % (21.0-51.0); MEAN CORPUSCULAR HEMOGLOBIN 24.5 pg (27.0-34.0); MEAN CORPUSCULAR HGB CONC 30.9 g/dL (33.0-35.0); MEAN CORPUSCULAR VOLUME 79.4 fL (80.0-100.0); MEAN PLATELET VOLUME 7.7 fL (7.4-11.0); MONOCYTES # (AUTO) 0.6 x10^3/uL (0.3-0.8); MONOCYTES % (AUTO) 9.1 % (0.0-13.0); NEUTROPHILS # (AUTO) 5.5 x10^3/uL (2.2-4.8); NEUTROPHILS % (AUTO) 80.6 % (42.0-75.0); PLATELET COUNT 316 X10^3/uL (150.0-450.0); RED BLOOD COUNT 3.49 X10^6/uL (4.7-6.0); RED CELL DISTRIBUTION WIDTH 21.4 % (11.6-16.5); WHITE BLOOD COUNT 6.9 X10^3/uL (3.6-10.0)
[2020-09-18 05:22] LABS: ALBUMIN 2.9 g/dL (3.4-5.0); COR CA(FOR HYPOALB) 8.9 mg/dL (8.5-10.1); CREATININE 1.63 mg/dL (0.70-1.30); TOTAL PROTEIN 7.4 g/dL (6.4-8.2)
[2020-09-18 05:32] LABS: PLATELET MORPHOLOGY COMMENT NORMAL (NORMAL)
[2020-09-18 05:33] LABS: ANISOCYTOSIS 1+
[2020-09-18 05:40] LABS: CARBON DIOXIDE 43.9 mmol/L (21-32)
--- NOTE | 2020-09-18 07:19 | RAD ---
HISTORYCOPD acute exacerbationSTUDYChest AP [id number]/25/2021FINDINGSThe heart is within normal limits in size. The david are normal. The lungs are well inflated. Diffuse haziness throughout the right lung may represent infiltrate and is unchanged. Left lung is clear. No pleural effusions are identified. Bony thorax is unremarkable.IMPRESSIONDiffuse haziness throughout the right lung likely representing infiltrate and unchangedElectronically signed by: GENE HANSON (Sep 18, 2020 07:17:05)
[2020-09-18] MEDS: PULMICORT NEB TX 0.5 MG NEB SCH ×2 (08:53→20:35)
[2020-09-18] MEDS: ZITHROMAX INJ 500 MG VIAL 500 MG in NS 250 ML IV 250 ML IV SCH (09:53)
[2020-09-18] MEDS: LASIX IVP SCH ×2 (09:53→17:54)
[2020-09-18] MEDS ORDERED: NS 1/2 1000 ML IV 1,000 ML IV ONE (10:04)
--- NOTE | 2020-09-18 10:55 | PCM.PROG ---
Progress Note - Progress Note for Day of Date of Exam: 09/18/20 - Subjective Subjective: WAS ADMITTED FOR TREATMENT OF CHF EXACERBATION, PNEUMONIA, COPD, AND ANEMIA. HE HAS A PMH OF CHF, COPD, ANEMIA, PUD, GERD, A-FIB, CHRONIC RENAL DISEASE, DM II, HYPOTHYROIDISM, AND HTN. SPOUSE REPORTS THAT SHE FOUND PATIENT LETHARGIC IN THE BATHROOM PRIOR TO ADMISSION. HE HAS BEEN UTILIZING THE BIPAP AND SUPPLEMENTAL OXYGEN. TODAY, PATIENT IS ALERT AND ORIENTED, LYING IN BED ON MORNING ROUNDS. HE CONTINUES WITH COMPLAINTS OF SHORTNESS OF BREATH AND WEAKNESS. HIS SATURATIONS DO DROP TO THE LOWER 80s ON AMBULATION. THEY RECOVER TO THE 90s WHEN HE IS RESTING. ON EXAMINATION, HEART IS REGULAR IN RATE AND RHYTHM. BILATERAL LUNGS NOTED WITH DIMINISHED LUNG SOUNDS THROUGHOUT. HE HAS TRACE EDEMA TO BILATERAL LOWER EXTREMITIES. HIS VITALS THIS MORNING ARE: 97.6-66-29-92%BIPAP-136/60. LABS WERE OBTAINED. ABNORMAL LAB VALUES INCLUDE THE FOLLOWING: RBC 3.49, HGB 8.6, HCT 27.7, SODIUM 147, CARBON DIOXIDE 43.9, BUN 33, CREATININE 1.63, GLUCOSE 121, CALCIUM 8.0, BNP 148, ALBUMIN 2.9. BLOOD CULTURES ARE PENDING. A CHEST XRAY WAS OBTAINED THIS MORNING AND REVEALED: Diffuse haziness throughout the right lung likely representing infiltrate and unchanged. HE IS CURRENTLY RECEIVING 1/2NS AT [facility], LASIX 40MG IV BID, AZITHROMYCIN 500MG IV DAILY, DUONEBS Q4H, PULMICORT NEBS BID, ELIQUIS 2.5MG PO BID, CORDARONE 200MG PO DAILY, LIPITOR 20MG PO HS, KLONOPIN 0.5MG PO HS, HUMULIN R SLIDING SCALE, OTBS ACHS, XALATAN 1 DROP PO HS, SYNTHROID 100MCG PO DAILY, PROTONIX 40MG PO BID, REQUIP 1MG PO BID, ALDACTONE 25MG PO DAILY, AND FLOMAX 0.4MG PO DAILY. PATIENTS SPOUSE REQUEST THAT PATIENT HAVE PHYSICAL THERAPY AND REHAB AT [facility] BEFORE RETURNING HOME. WE WILL DISCUSS THIS WITH CASE MANAGEMENT. OTHERWISE, WE PLAN TO FOLLOW UP WITH AM LABS AND CHEST XRAY AND CONTINUE TO MONITOR. TIME SPENT ON CLINICAL ASSESSMENT, REVIEWING LABS AND IMAGING, DECISION MAKING, AND DOCUMENTATION GREATER THAN 45 MINUTES. - Past Medical Family Social History Past Med/Fam/Surg Hx: No changes since H&P Allergies: Allergies No Known Drug Allergies Allergy (Verified 08/29/20 01:35) - Review of Systems ROS: No change since H&P - Vital Signs and I&O's Vital Signs: Temperature 97.6 F Pulse Rate [Right] 60 Pulse Rate 57 Respiratory Rate 20 Blood Pressure [Left Arm] 127/83 Blood Pressure [Right Arm] 153/70 Blood Pressure 136/60 O2 Sat by Pulse Oximetry 91 Intake and Output: Intake & Output 09/15/20 09/16/20 09/17/20 09/18/20 11:59 11:59 11:59 11:59 Intake Total 1230 / 1230 1372 / 1372 1909 / 1909 1811 / 1811 Output Total 3950 / 3950 2750 / 2750 1200 / 1200 4075 / 4075 Balance -2720 / -2720 -1378 / -1378 709 / 709 -2264 / -2264 - Physical Exam Oriented: Normal, Person Eyes: Normal Ear: Normal Nose: Normal Throat: Normal Respiratory: Generalized, Diminished Cardiovascular: Edema : Normal Auscultation: Bowel Sounds: Normal Tenderness: Normal Skin: Decreased Turgur Musculoskeletal: Leg, Swelling, Motor Deficit Psychiatric: Anxiety Affect: Anxious Speech Pattern: Appropriate - Laboratory and Diagnostics Result Diagrams: 09/18/20 04:20 09/18/20 04:20 Labs: 09/14/20 13:31 Urine,Catheterized Urine Culture - Final 09/12/20 00:06 Blood Blood Culture - Preliminary 09/12/20 23:58 Blood Blood Culture - Preliminary Laboratory WBC 6.9 X10^3/uL (3.6-10.0) 09/18/20 04:20 RBC 3.49 X10^6/uL (4.7-6.0) L 09/18/20 04:20 Hgb 8.6 g/dL (13.5-18.0) L 09/18/20 04:20 Hct 27.7 % (42.0-54.0) L 09/18/20 04:20 MCV 79.4 fL (80.0-100.0) L 09/18/20 04:20 MCH 24.5 pg (27.0-34.0) L 09/18/20 04:20 MCHC 30.9 g/dL (33.0-35.0) L 09/18/20 04:20 RDW 21.4 % (11.6-16.5) H 09/18/20 04:20 Plt Count 316 X10^3/uL (150.0-450.0) 09/18/20 04:20 Plt Count Comment Adequate (ADEQUATE) 09/18/20 04:20 MPV 7.7 fL (7.4-11.0) 09/18/20 04:20 Neut % (Auto) 80.6 % (42.0-75.0) H 09/18/20 04:20 Lymph % (Auto) 7.8 % (21.0-51.0) L 09/18/20 04:20 [place] % (Auto) 9.1 % (0.0-13.0) 09/18/20 04:20 Eos % (Auto) 1.7 % (0.9-2.9) 09/18/20 04:20 Baso % (Auto) 0.8 % (0.2-1.0) 09/18/20 04:20 Neut # (Auto) 5.5 x10^3/uL (2.2-4.8) H 09/18/20 04:20 Lymph # (Auto) 0.5 X10^3/uL (1.3-2.9) L 09/18/20 04:20 [place] # (Auto) 0.6 x10^3/uL (0.3-0.8) 09/18/20 04:20 Eos # (Auto) 0.1 x10^3/uL (0.0-0.2) 09/18/20 04:20 Baso # (Auto) 0.1 X10^3/uL (0.0-0.1) 09/18/20 04:20 Absolute Nucleated RBC 0.1 /100WBC 09/18/20 04:20 Total Counted 100 09/16/20 04:25 Neutrophils % (Manual) 88 % (39-76) H 09/16/20 04:25 Band Neutrophils % 2 % (0-10) 09/16/20 04:25 Lymphocytes % (Manual) 7 % (13-43) L 09/16/20 04:25 Monocytes % (Manual) 3 % (4-9) L 09/16/20 04:25 Plt Morphology Comment Normal (NORMAL) 09/18/20 04:20 RBC Morphology Abnormal (NORMAL) 09/18/20 04:20 Hypochromasia 1+ A 09/17/20 04:15 Anisocytosis 1+ A 09/18/20 04:20 Microcytosis 1+ A 09/17/20 04:15 Stomatocytes 1+ A 09/17/20 04:15 Sample Site Lr 09/16/20 04:57 ABG pH 7.400 (7.35-7.45) 09/16/20 04:57 ABG pCO2 75.0 mmHg (35.0-45.0) H* 09/16/20 04:57 ABG pO2 53.0 mmHg (80.0-100.0) L 09/16/20 04:57 ABG HCO3 46.5 mmol/L (22-26) H* 09/16/20 04:57 ABG O2 Saturation 87.0 % (90-100) L 09/16/20 04:57 ABG Base Excess 17.9 mmol/L (-2.0-2.0) H 09/16/20 04:57 Simón Test Pos 09/16/20 04:57 A-a Gradient 110.0 mmHg 09/16/20 04:57 FiO2 36.0 09/16/20 04:57 Blood Gas Comments Faye well ae 09/16/20 04:57 Sodium 147 mmol/L (136-145) H 09/18/20 04:20 Corrected Sodium 148 mmol/L (136-145) H 09/18/20 04:20 Potassium 4.6 mmol/L (3.5-5.1) 09/18/20 04:20 Chloride 105 mmol/L (98-107) 09/18/20 04:20 Carbon Dioxide 43.9 mmol/L (21-32) H* 09/18/20 04:20 BUN 33 mg/dL (7-18) H 09/18/20 04:20 Creatinine 1.63 mg/dL (0.70-1.30) H 09/18/20 04:20 Est GFR (MDRD) Af Amer 52 (>60) L 09/18/20 04:20 Est GFR (MDRD) Non-Af 43 (>60) L 09/18/20 04:20 Glucose 121 mg/dL (65-99) H 09/18/20 04:20 POC Glucose (mg/dL) 118 mg/dL (65-99) H 09/17/20 19:52 Calcium 8.0 mg/dL (8.5-10.1) L 09/18/20 04:20 Corrected Calcium 8.9 mg/dL (8.5-10.1) 09/18/20 04:20 Magnesium 3.2 mg/dL (1.7-2.9) H 09/13/20 10:20 Iron 19 ug/dL (50-175) L 09/13/20 08:13 Transferrin 293 mg/dL (202-364) 09/13/20 08:13 Ferritin 27 ng/mL (26-388) 09/13/20 08:13 Total Bilirubin 0.40 mg/dL (0.2-1.0) 09/18/20 04:20 AST 24 Units/L (15-37) 09/18/20 04:20 ALT 18 Units/L (12-78) 09/18/20 04:20 Alkaline Phosphatase 79 Units/L (46-116) 09/18/20 04:20 Ammonia 34 umol/L (11-32) H 09/13/20 10:20 Creatine Kinase 132 Units/L (39-308) 09/13/20 08:13 Creatine Kinase Cancelled 09/13/20 08:13 CK-MB (CK-2) 1.3 ng/mL (0-4.0) 09/13/20 08:13 CK-MB (CK-2) Cancelled 09/13/20 08:13 CK/CKMB % Calc 1.0 % (<4) 09/13/20 08:13 CK/CKMB % Calc Cancelled 09/13/20 08:13 Troponin I 0.02 ng/mL (0-1.5) 09/13/20 08:13 Troponin I Cancelled 09/13/20 08:13 B-Natriuretic Peptide 148 pg/mL (0-79) H 09/18/20 04:20 Total Protein 7.4 g/dL (6.4-8.2) 09/18/20 04:20 Albumin 2.9 g/dL (3.4-5.0) L 09/18/20 04:20 Globulin 4.5 g/dL (2.5-4.5) 09/18/20 04:20 Albumin/Globulin Ratio 0.6 Ratio (1.1-2.1) L 09/18/20 04:20 Vitamin B12 478 pg/mL (193-986) 09/13/20 08:13 Folate 19.1 ng/mL (>8.6) 09/13/20 08:13 Free T4 0.85 ng/dL (0.76-1.46) 09/13/20 10:20 TSH 3rd Generation 11.590 uIU/mL (0.358-3.74) H 09/13/20 10:20 Specimen Type Catherized urine 09/13/20 05:21 Urine Color Straw (YELLOW) 09/13/20 05:21 Urine Appearance Clear (CLEAR) 09/13/20 05:21 Urine pH 6.0 (5.0 - 8.0) 09/13/20 05:21 Ur Specific [place] 1.015 (1.000-1.030) 09/13/20 05:21 Urine Protein Negative (NEGATIVE) 09/13/20 05:21 Urine Glucose (UA) Negative (NEGATIVE) 09/13/20 05:21 Urine Ketones Negative (NEGATIVE) 09/13/20 05:21 Urine Occult Blood Negative (NEGATIVE) 09/13/20 05:21 Urine Nitrite Negative (NEGATIVE) 09/13/20 05:21 Urine Bilirubin Negative (NEGATIVE) 09/13/20 05:21 Urine Urobilinogen Normal (NORMAL) 09/13/20 05:21 Ur Leukocyte Esterase Negative (NEGATIVE) 09/13/20 05:21 Stool Description 75g greenish brown 09/14/20 15:40 Stl Occult Blood (IFOB) Positive (NEGATIVE) A 09/14/20 15:40 SARS-CoV-2 (PCR) Negative (NEGATIVE) 09/12/20 23:23 Influenza Type A (PCR) Negative (NEGATIVE) 09/12/20 23:23 Influenza Type B (PCR) Negative (NEGATIVE) 09/12/20 23:23 RSV (PCR) Negative (NEGATIVE) 09/12/20 23:23 Blood Type A POSITIVE 09/14/20 10:10 Antibody Screen Negative 09/12/20 00:06 Crossmatch See Detail 09/12/20 00:06 Tx React Prelim Eval Not related to trans 09/14/20 10:10 Tx React Symptoms See comment 09/14/20 10:10 Reaction Path Interpret Not related to trans 09/14/20 10:[address] ree maldonado 09/14/20 10:10 Blood Bank Comment Performed by P2 09/14/20 10:10 - Plan (1) Acute exacerbation of CHF (congestive heart failure) Status: Acute Qualifiers: Heart failure type: unspecified Qualified Code(s): I50.9 - Heart failure, unspecified Plan: ADMIT, STRICT I&OS. ABG ON ADMISSION, BIPAP PRN. IV LASIX, CARDIAC MONITORING. REPEAT AM ABG. CONFIRM AND RESUME HOME MEDICATION. AMMONIA LEVEL, CT HEAD IN ER ON ADMISSION NEGATIVE FOR CVA. SUPPLEMENTAL O2, DUO NEBS, BLOOD CULTURE ON ADMISSION (2) Pneumonia Status: Acute Qualifiers: Pneumonia type: due to unspecified organism Laterality: unspecified laterality Lung location: unspecified part of lung Qualified Code(s): J18.9 - Pneumonia, unspecified organism (3) Anemia Status: Acute Qualifiers: Anemia type: iron deficiency Iron deficiency anemia type: chronic blood loss Qualified Code(s): D50.0 - Iron deficiency anemia secondary to blood loss (chronic) (4) COPD (chronic obstructive pulmonary disease) Status: Chronic Qualifiers: COPD type: unspecified COPD (5) Hypothyroidism Status: Chronic Qualifiers: Hypothyroidism type: acquired (6) Diabetes mellitus, type 2 Status: Chronic 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
[2020-09-18] MEDS: SYNTHROID 100 mcg TAB PO SCH (12:00)
[2020-09-18] MEDS: REQUIP PO SCH ×2 (12:00→21:00)
[2020-09-18] MEDS: CORDARONE TAB 200 MG PO SCH (12:00)
[2020-09-18] MEDS: ELIQUIS PO SCH ×2 (12:00→21:00)
[2020-09-18] MEDS: FLOMAX PO SCH (12:00)
[2020-09-18] MEDS: PROTONIX TAB 40 MG PO SCH ×2 (12:00→21:00)
[2020-09-18] MEDS: ALDACTONE TAB 25 MG PO SCH (12:00)
[2020-09-18] MEDS: NS 1/2 1000 ML IV 1,000 ML IV SCH ×2 (17:03→19:12)
[2020-09-18] MEDS: SNACK - Diabetic Appropriate PO SCH (20:00)
[2020-09-18] MEDS: LIPITOR TAB 20 MG PO SCH (21:00)
[2020-09-18] MEDS: XALATAN OP SCH (21:00)
[2020-09-18] MEDS: KLONOPIN TAB 0.5 MG PO SCH (21:00)
[2020-09-19] MEDS: DUONEB 0.5 MG/3 MG (3 mL) NEB SCH ×4 (01:00→13:10)
[2020-09-19 05:22] LABS: BASOPHILS % (AUTO) 0.2 % (0.2-1.0); EOSINOPHILS # (AUTO) 0.1 x10^3/uL (0.0-0.2); EOSINOPHILS % (AUTO) 1.8 % (0.9-2.9); HEMATOCRIT 26.8 % (42.0-54.0); HEMOGLOBIN 8.3 g/dL (13.5-18.0); LYMPHOCYTES # (AUTO) 0.6 X10^3/uL (1.3-2.9); LYMPHOCYTES % (AUTO) 9.9 % (21.0-51.0); MEAN CORPUSCULAR HGB CONC 30.8 g/dL (33.0-35.0); MEAN CORPUSCULAR VOLUME 81.1 fL (80.0-100.0); MEAN PLATELET VOLUME 7.7 fL (7.4-11.0); MONOCYTES # (AUTO) 0.6 x10^3/uL (0.3-0.8); MONOCYTES % (AUTO) 9.7 % (0.0-13.0); NEUTROPHILS # (AUTO) 5.1 x10^3/uL (2.2-4.8); NEUTROPHILS % (AUTO) 78.4 % (42.0-75.0); PLATELET COUNT 280 X10^3/uL (150.0-450.0); RED CELL DISTRIBUTION WIDTH 22.8 % (11.6-16.5); WHITE BLOOD COUNT 6.5 X10^3/uL (3.6-10.0)
[2020-09-19 05:37] LABS: ALANINE AMINOTRANSFERASE 16 Units/L (12-78); ALBUMIN 2.7 g/dL (3.4-5.0); ALKALINE PHOSPHATASE 72 Units/L (46-116); ASPARTATE AMINO TRANSFERASE 22 Units/L (15-37); BLOOD UREA NITROGEN 33 mg/dL (7-18); CHLORIDE 104 mmol/L (98-107); SODIUM 146 mmol/L (136-145); eGFR NON BLACK RACES 47 (>60)
[2020-09-19 05:46] LABS: ANISOCYTOSIS 2+; HYPOCHROMASIA SLIGHT; PLATELET MORPHOLOGY COMMENT NORMAL (NORMAL)
[2020-09-19 05:52] LABS: CARBON DIOXIDE > 45.0 mmol/L (21-32)
--- NOTE | 2020-09-19 06:49 | RAD ---
HISTORYSOBSTUDYCHEST, 1 [id number]/26/2021.TECHNIQUEAP view of the chestFINDINGSThe cardiac silhouette is stably enlarged. Mediastinal contours appear stable. No significant change in bilateral airspace and interstitial opacities. Small pleural effusions. No pneumothorax. Soft tissue attenuation limits evaluation.IMPRESSIONNo significant change.Electronically signed by: Azeem Chin (Sep 19, 2020 06:47:07)
[2020-09-19] MEDS: NS 1/2 1000 ML IV 1,000 ML IV SCH (08:49)
[2020-09-19] MEDS: PROTONIX TAB 40 MG PO SCH (08:49)
[2020-09-19] MEDS: ALDACTONE TAB 25 MG PO SCH (08:49)
[2020-09-19] MEDS: CORDARONE TAB 200 MG PO SCH (08:50)
[2020-09-19] MEDS: FLOMAX PO SCH (08:51)
[2020-09-19] MEDS: SYNTHROID 100 mcg TAB PO SCH (08:52)
[2020-09-19] MEDS: REQUIP PO SCH (08:52)
[2020-09-19] MEDS: ELIQUIS PO SCH (08:52)
[2020-09-19] MEDS: LASIX IVP SCH (08:53)
[2020-09-19] MEDS: ZITHROMAX INJ 500 MG VIAL 500 MG in NS 250 ML IV 250 ML IV SCH (08:54)
[2020-09-19] MEDS: PULMICORT NEB TX 0.5 MG NEB SCH (09:30)
[2020-09-19 09:38] LABS: ABG BASE EXCESS 22.4 mmol/L (-2.0-2.0)
[2020-09-19 09:39] LABS: ABG ALLEN TEST POS; ABG HCO3 52.1 mmol/L (22-26)
[2020-09-19 16:19] VITALS: BP 106/71
== END 2020-09-19 16:40 | disposition home health service (06) | DRG 190 ==
LOC: ER 21:57 → ICU 09-13 01:18
PROVIDERS: ADMIT Internal Medicine; ATTEND Internal Medicine
DX: W18.39XA Other fall on same level, initial encounter; J96.22 Acute and chronic respiratory failure with hypercapnia; J18.8 Other pneumonia, unspecified organism; Y92.002 Bathroom of unspecified non-institutional (private) residence as the place of occurrence of the external cause; R94.31 Abnormal electrocardiogram [ECG] [EKG]; R06.02 Shortness of breath; R55 Syncope and collapse; E11.65 Type 2 diabetes mellitus with hyperglycemia; R60.0 Localized edema; E03.8 Other specified hypothyroidism; R26.89 Other abnormalities of gait and mobility; Z20.822 Contact with and (suspected) exposure to COVID-19; J44.1 Chronic obstructive pulmonary disease with (acute) exacerbation; D50.0 Iron deficiency anemia secondary to blood loss (chronic); R62.7 Adult failure to thrive; I48.91 Unspecified atrial fibrillation; I13.0 Hypertensive heart and chronic kidney disease with heart failure and stage 1 through stage 4 chronic kidney disease, or unspecified chronic kidney disease; R79.89 Other specified abnormal findings of blood chemistry